=== PATIENT | female | born 1955 | race Caucasian/White ===

== ENCOUNTER 2020-03-08 12:54 | Outpatient (REF) | payer OTHER, MEDICARE, SELFPAY ==
[2020-03-08 14:09] LABS: MANUAL DIFF FLAG NO
[2020-03-08 14:18] LABS: Basophils Absolute Auto 0.1 X10*3/uL (0.0-0.2); Basophils Percent Auto 0.8 % (0-2); Eosinophils Absolute Auto 0.1 X10*3/uL (0.0-0.4); Eosinophils Percent Auto 1.3 % (0-4); Hematocrit 39.9 % (37-47); Hemoglobin 13.4 g/dl (12.0-16.0); Imm Gran Abs Auto 0.02 X10*3/uL (0.00-0.03); Imm Gran Pct Auto 0.3 % (0.0-0.4); Lymphocytes Absolute Auto 1.5 X10*3/uL (1.2-4.9); Lymphocytes Percent Auto 23.8 % (20-40); Mean Corpuscular HGB Conc 33.6 g/dl (31.0-35.0); Mean Corpuscular Hemoglobin 32.1 pg (27.0-33.0); Mean Corpuscular Volume 95.5 fL (80-98); Mean Platelet Volume 10.2 fL (9.4-12.3); Monocytes Absolute Auto 0.6 X10*3/uL (0.1-1.2); Neutrophils Absolute Auto 3.9 X10*3/uL (2.0-8.3); Neutrophils Percent Auto 63.8 % (45-73); Platelet Count 252 X10*3/uL (160-400); Red Blood Count 4.18 X10*6/uL (4.20-5.50); Red Cell Distribution Width 13.3 % (11.0-16.0); White Blood Count 6.1 X10*3/uL (4.8-10.8)
[2020-03-08 14:46] LABS: Anion Gap 15 (12-20); Blood Urea Nitrogen 7 mg/dL (9-16); Calcium 9.3 mg/dL (8.4-10.2); Carbon Dioxide 24 mmol/L (22-29); Chloride 97 mmol/L (96-108); Estimated Glomerular Filt Rate > 60; Glucose Random 91 mg/dL (60-115); Potassium 4.9 mmol/l (3.3-5.1); Sodium 131 mmol/L (135-145)
[2020-03-09 08:06] LABS: LDL Cholesterol Direct 88 mg/dL (<100)
== END 2020-03-08 12:55 | disposition home or self-care (01) ==
LOC: HO.HMGCLDS 12:54
PROVIDERS: PCP Internal Medicine; Visit Provider Internal Medicine
DX: M81.0 Age-related osteoporosis without current pathological fracture (principal); E78.9 Disorder of lipoprotein metabolism, unspecified; I10 Essential (primary) hypertension
CPT/HCPCS: 36415; 80048; 83721; 85025

== ENCOUNTER → 2020-07-21 08:19 | Outpatient (BNVA) | payer MEDICARE, OTHER, SELFPAY | PROVIDERS: PCP Internal Medicine; Visit Provider Internal Medicine Endocrinology, Diabetes & Metabolism | DX: M81.0 Age-related osteoporosis without current pathological fracture (principal); E87.1 Hypo-osmolality and hyponatremia | CPT/HCPCS: 99202 ==

== ENCOUNTER 2020-07-27 08:08 | Outpatient (REF) | payer MEDICARE, OTHER, SELFPAY ==
[2020-07-27 10:11] LABS: Free T4 (Free Thyroxine) 1.13 ng/dL (0.71-1.85); Thyroid Stimulating Hormone 1.46 uIU/mL (0.32-4.0); Vitamin D 25-OH Total 29.9 ng/mL (>30)
[2020-07-27 10:44] LABS: Osmolality, Serum 276 mosm/kg (281-305)
[2020-07-27 10:51] LABS: Osmolality Urine 209 mosm/kg (373-1093)
[2020-07-28 11:26] LABS: Calcium (PTHI) 9.2 mg/dL (8.6-10.4); PTHI 70 pg/mL (14-64)
[2020-07-28 21:27] LABS: Adrenocorticotropic Hormone 21 pg/mL (6-50)
[2020-07-29 18:21] LABS: Histamine Plasma <1.5 ng/mL (< OR = 1.8)
[2020-07-29 22:23] LABS: Prot Elec - Albumin 4.3 g/dL (3.8-4.8); Prot Elec - Alpha1 0.3 g/dL (0.2-0.3); Prot Elec - Alpha2 0.8 g/dL (0.5-0.9); Prot Elec - Beta 1 0.4 g/dL (0.4-0.6); Prot Elec - Beta 2 0.4 g/dL (0.2-0.5); Prot Elec - Gamma 1.1 g/dL (0.8-1.7); Prot Elec - Total Protein 7.3 g/dL (6.1-8.1)
[2020-08-03 06:47] LABS: N-Telopeptide 29 (see note); NTXCreaRU 38 mg/dL (20-275)
== END 2020-07-27 08:09 | disposition home or self-care (01) ==
LOC: HO.HMGCLDS 08:08
PROVIDERS: PCP Internal Medicine; Visit Provider Internal Medicine Endocrinology, Diabetes & Metabolism
DX: M81.0 Age-related osteoporosis without current pathological fracture (principal); E87.1 Hypo-osmolality and hyponatremia; Z00.00 Encounter for general adult medical examination without abnormal findings
CPT/HCPCS: 36415; 82024; 82306; 82523; 82533; 83088; 83930; 83935; 83970; 84155; 84165; 84439; 84443

== ENCOUNTER 2020-07-28 12:25 | Outpatient (REF) | payer MEDICARE, OTHER, SELFPAY ==
[2020-07-28 15:25] LABS: Creatinine, mg/dL 19.72
[2020-07-29 06:50] LABS: Creatinine, 24Hr Urine 0.6 G/Day (1.0-2.0); Total Volume 24 Hour Urine 2800 mL
[2020-07-29 17:57] LABS: Calcium, 24 Hr Urine 25 mg/24 h; Calcium/Creatinine Ratio 41 mg/g creat (30-275); Creatinine 24Hr Urine 0.62 g/24 h (0.50-2.15)
[2020-08-01 12:51] LABS: Creatinine, 24Hr Urine 0.64 g/24 h (0.50-2.15); PEU-PROT/CRE Ratio mg/mg NOTE (< OR = 0.114); PEU24-Albumin Urine 0 %; PEU24-Alpha 1 Globulin 0 %; PEU24-Alpha 2 Globulin 0 %; PEU24-Beta Globulin 0 %; PEU24-Gamma Globulin 0 %; Total Protein 24Hr Urine NOTE mg/24 h (<150); Total Protein/Creat Ratio 24h NOTE mg/g creat (< OR = 114)
== END 2020-07-28 12:26 | disposition home or self-care (01) ==
LOC: HO.HMGCLNP 12:25
PROVIDERS: Visit Provider Internal Medicine Endocrinology, Diabetes & Metabolism
DX: M81.0 Age-related osteoporosis without current pathological fracture (principal)
CPT/HCPCS: 82340; 82570; 84156; 84166

== ENCOUNTER 2020-08-25 10:26 | Outpatient (REF) | payer MEDICARE, OTHER, SELFPAY ==
[2020-08-25 12:32] LABS: Alanine Aminotransferase 13 U/L (0-31); Albumin Level 4.2 g/dL (3.5-5.0); Alkaline Phosphatase 62 U/L (39-117); Anion Gap 13 (12-20); Aspartate Amino Transferase 19 U/L (5-31); Bilirubin Total 0.6 mg/dL (0.0-1.0); Blood Urea Nitrogen 5 mg/dL (9-16); Calcium 9.2 mg/dL (8.4-10.2); Carbon Dioxide 23 mmol/L (22-29); Chloride 101 mmol/L (96-108); Cholesterol 196 mg/dL; Estimated Glomerular Filt Rate > 60; Glucose Fasting 94 mg/dL (60-99); HDL Cholesterol 83 mg/dL; LDL Cholesterol Calculated 103 mg/dl; Sodium 133 mmol/L (135-145); Total Protein 7.1 g/dL (6.5-8.0); Triglycerides 50 mg/dL
[2020-09-02 13:37] LABS: Vitamin D 25-OH, D2 <4 ng/mL; Vitamin D 25-OH, D3 32 ng/mL; Vitamin D 25-OH, Total 32 ng/mL (30-100)
== END 2020-08-25 10:27 | disposition home or self-care (01) ==
LOC: HO.HMGCLDS 10:26
PROVIDERS: PCP Internal Medicine; Visit Provider Internal Medicine
DX: E78.9 Disorder of lipoprotein metabolism, unspecified (principal); I10 Essential (primary) hypertension; K21.9 Gastro-esophageal reflux disease without esophagitis; M81.0 Age-related osteoporosis without current pathological fracture
CPT/HCPCS: 36415; 80053; 80061; 82306

== ENCOUNTER → 2020-09-27 13:19 | Outpatient (BNVA) | payer MEDICARE, OTHER, SELFPAY | PROVIDERS: PCP Internal Medicine; Visit Provider Internal Medicine Endocrinology, Diabetes & Metabolism | DX: M81.0 Age-related osteoporosis without current pathological fracture (principal); E87.1 Hypo-osmolality and hyponatremia; E21.3 Hyperparathyroidism, unspecified | CPT/HCPCS: 99212 ==

== ENCOUNTER 2020-09-28 09:15 | Outpatient (REF) | payer MEDICARE, OTHER, SELFPAY ==
[2020-09-28 10:27] LABS: Alanine Aminotransferase 14 U/L (0-31); Albumin Level 4.2 g/dL (3.5-5.0); Alkaline Phosphatase 51 U/L (39-117); Anion Gap 12 (12-20); Aspartate Amino Transferase 21 U/L (5-31); Bilirubin Total 0.6 mg/dL (0.0-1.0); Blood Urea Nitrogen 6 mg/dL (9-16); Calcium 9.5 mg/dL (8.4-10.2); Carbon Dioxide 25 mmol/L (22-29); Chloride 97 mmol/L (96-108); Estimated Glomerular Filt Rate > 60; Glucose Fasting 92 mg/dL (60-99); Potassium 3.9 mmol/L (3.3-5.1); Sodium 130 mmol/L (135-145); Total Protein 7.1 g/dL (6.5-8.0)
[2020-09-28 10:49] LABS: Vitamin D 25-OH Total 49.7 ng/mL (>30)
[2020-09-30 15:57] LABS: Calcium (PTHI) 9.6 mg/dL (8.6-10.4); PTHI 52 pg/mL (14-64)
== END 2020-09-28 09:16 | disposition home or self-care (01) ==
LOC: HO.LAB 09:15
PROVIDERS: PCP Internal Medicine; Visit Provider Internal Medicine Endocrinology, Diabetes & Metabolism
DX: M81.0 Age-related osteoporosis without current pathological fracture (principal)
CPT/HCPCS: 36415; 80053; 82306; 83970

== ENCOUNTER 2020-09-30 12:51 | Outpatient (REF) | payer MEDICARE, OTHER, SELFPAY ==
[2020-09-30 15:26] LABS: Creatinine, mg/dL 23.37
[2020-09-30 19:43] LABS: Creatinine, 24Hr Urine 0.7 G/Day (1.0-2.0); Total Volume 24 Hour Urine 3000 mL
[2020-10-01 18:12] LABS: Calcium, 24 Hr Urine 45 mg/24 h; Calcium/Creatinine Ratio 60 mg/g creat (30-275); Creatinine 24Hr Urine 0.75 g/24 h (0.50-2.15)
[2020-10-05 16:22] LABS: N-Telopeptide 16 (see note); NTXCreaRU 23 mg/dL (20-275)
== END 2020-09-30 12:52 | disposition home or self-care (01) ==
LOC: HO.HMGCLNP 12:51
PROVIDERS: Visit Provider Internal Medicine Endocrinology, Diabetes & Metabolism
DX: M81.0 Age-related osteoporosis without current pathological fracture (principal)
CPT/HCPCS: 82340; 82523; 82570

== ENCOUNTER → 2021-01-31 10:49 | Outpatient (BNVA) | payer MEDICARE, OTHER, SELFPAY | PROVIDERS: PCP Internal Medicine; Visit Provider Family Medicine Adult Medicine | DX: Z98.890 Other specified postprocedural states (principal) | CPT/HCPCS: 99202 ==

== ENCOUNTER 2021-03-01 10:21 | Outpatient (REF) | payer MEDICARE, OTHER, SELFPAY ==
[2021-03-01 12:02] LABS: Alanine Aminotransferase 16 U/L (0-31); Albumin Level 4.3 g/dL (3.5-5.0); Alkaline Phosphatase 44 U/L (39-117); Anion Gap 13 (12-20); Aspartate Amino Transferase 20 U/L (5-31); Bilirubin Total 0.5 mg/dL (0.0-1.0); Blood Urea Nitrogen 9 mg/dL (9-16); Calcium 9.2 mg/dL (8.4-10.2); Carbon Dioxide 23 mmol/L (22-29); Chloride 98 mmol/L (96-108); Estimated Glomerular Filt Rate > 60; Glucose Random 95 mg/dL (60-115); Potassium 4.4 mmol/L (3.3-5.1); Sodium 130 mmol/L (135-145); Total Protein 7.2 g/dL (6.5-8.0)
== END 2021-03-01 10:22 | disposition home or self-care (01) ==
LOC: HO.HMGCLDS 10:21
PROVIDERS: PCP Internal Medicine; Visit Provider Internal Medicine
DX: M81.0 Age-related osteoporosis without current pathological fracture (principal); K21.9 Gastro-esophageal reflux disease without esophagitis; M54.9 Dorsalgia, unspecified; I10 Essential (primary) hypertension; G89.29 Other chronic pain; E78.9 Disorder of lipoprotein metabolism, unspecified; E87.1 Hypo-osmolality and hyponatremia
CPT/HCPCS: 36415; 80053

== ENCOUNTER → 2021-04-07 14:15 | Outpatient (BNVA) | payer MEDICARE, OTHER, SELFPAY | PROVIDERS: PCP Internal Medicine; Visit Provider Internal Medicine | DX: M81.0 Age-related osteoporosis without current pathological fracture (principal); E55.9 Vitamin D deficiency, unspecified; R79.89 Other specified abnormal findings of blood chemistry | CPT/HCPCS: 99212 ==

== ENCOUNTER 2021-04-11 07:08 | Outpatient (REF) | payer MEDICARE, OTHER, SELFPAY ==
[2021-04-11 09:07] LABS: Cortisol Random 1.5 ug/dL
[2021-04-12 21:27] LABS: Adrenocorticotropic Hormone <5 pg/mL (6-50)
[2021-04-19 13:35] LABS: Dexamethasone 523 ng/dL
== END 2021-04-11 07:09 | disposition home or self-care (01) ==
LOC: HO.HMGCLDS 07:08
PROVIDERS: PCP Internal Medicine; Visit Provider Internal Medicine
DX: M81.0 Age-related osteoporosis without current pathological fracture (principal); Z79.899 Other long term (current) drug therapy
CPT/HCPCS: 36415; 80299; 82024; 82533

== ENCOUNTER 2021-04-27 13:12 | Outpatient (REF) | payer MEDICARE, OTHER, SELFPAY ==
--- NOTE | ~2021-04-27 | MM_ITS ---
EXAMINATION: BONE DENSITOMETRY CLINICAL INDICATION: Osteoporosis. COMPARISON: Previous BD dated 03/20/2016 and baseline BD dated 03/22/2006. TECHNIQUE: Using a iTMan DXA System (software version: 13.1) manufactured by [employer], dual-energy x-ray absorptiometry was performed of the lumbar spine, left hip, and left forearm radius 33%. The images are of good technical quality. Summary results are attached. FINDINGS: AP SPINE L1-L3 (excluding L4): The data of L1-L4 has been changed to exclude the L4 vertebral body, because degenerative changes at this level may cause overestimation of lumbar spine density. Current: BMD 0.880 g/cm2, Z-score -1.2, T-score -2.4, osteopenia, 4.5% decrease from previous, 10.5% decrease from baseline (<5% change is not significant). Prior: BMD 0.921 g/cm2. Baseline: BMD 0.983 g/cm2. LEFT FEMUR, NECK: Current: BMD 0.643 g/cm2, Z-score -1.5, T-score -2.8, osteoporosis. Prior: BMD 0.621 g/cm2. Baseline: BMD 0.700 g/cm2. LEFT FEMUR, TOTAL: Current: BMD 0.707 g/cm2, Z-score -1.3, T-score -2.4, osteopenia, 1.4% increase from previous, 9.7% decrease from baseline (<5% change is not significant). Prior: BMD 0.697 g/cm2. Baseline: BMD 0.783 g/cm2. LEFT FOREARM RADIUS 33%: BMD 0.597 g/cm2, Z-score -1.6, T-score -3.2, osteoporosis. Prior: Not previously measured. IDENTIFIED RISK FACTORS: Menopause, height loss, history of fracture (adult), osteoporosis. HISTORY OF FRACTURE: T11, trauma related. MEDICATIONS: Calcium or multivitamin. Vitamin D, bisphosphonate. MM/XR DEXA appendicular skeleton IMPRESSION: 1. DIAGNOSIS: Osteoporosis based on the lowest T-score value of -3.2 in the forearm radius 33% applying World Health Organization criteria. 2. 10 10-YEAR FRACTURE RISK PREDICTION, FRAX: According to the guidelines, FRAX calculation should only be performed on patients in the osteopenia bone density category. 3. Treatment Recommendations: NOF guidelines recommend consideration for treatment in postmenopausal women and men age 50 and older presenting with the following: -A hip or vertebral (clinical or morphometric) fracture. -T-score less than or equal to -2.5 at the femoral neck or spine after appropriate evaluation to exclude secondary causes. -Low bone mass at the hip or spine and a 10-year fracture probability by FRAX of greater than or equal to 3% for hip fracture or greater than or equal to 20% for major osteoporotic fracture based on the [place] adapted WHO algorithm. 4. Other Recommendations: All treatment decisions require clinical judgment and consideration of individual patient factors, including patient preferences, comorbidities, previous drug use, risk factors not captured in the FRAX model (e.g. frailty, falls, vitamin D deficiency, increased bone turnover, interval significant decline in bone density) and possible under or overestimation of fracture risk by FRAX. Additional medical evaluation for secondary cause of low bone mineral density may be appropriate. FUTURE SCAN RECOMMENDATION: People with diagnosed cases of osteoporosis or at high risk for fracture should have regular bone mineral density tests. For patients eligible for Medicare, routine testing is allowed once every 2 years. The testing frequency can be increased to one year for patients who have rapidly progressing disease, those who are receiving or discontinuing medical therapy to restore bone mass, or have additional risk factors.
== END 2021-04-27 13:13 | disposition home or self-care (01) ==
LOC: HO.MAMMO 13:12
PROVIDERS: Visit Provider Internal Medicine
DX: M81.0 Age-related osteoporosis without current pathological fracture (principal); S22.089D Unspecified fracture of T11-T12 vertebra, subsequent encounter for fracture with routine healing; X58.XXXD Exposure to other specified factors, subsequent encounter; Z78.0 Asymptomatic menopausal state
CPT/HCPCS: 77081

== ENCOUNTER 2021-05-10 10:40 | Outpatient (REF) | payer MEDICARE, OTHER, SELFPAY ==
[2021-05-10 14:34] LABS: Alanine Aminotransferase 13 U/L (0-31); Albumin Level 4.1 g/dL (3.5-5.0); Alkaline Phosphatase 43 U/L (39-117); Anion Gap 13 (12-20); Aspartate Amino Transferase 22 U/L (5-31); Bilirubin Total 0.7 mg/dL (0.0-1.0); Blood Urea Nitrogen 9 mg/dL (9-16); Calcium 9.7 mg/dL (8.4-10.2); Carbon Dioxide 25 mmol/L (22-29); Chloride 99 mmol/L (96-108); Estimated Glomerular Filt Rate > 60; Glucose Random 97 mg/dL (60-115); Potassium 4.5 mmol/L (3.3-5.1); Sodium 132 mmol/L (135-145); Total Protein 7.2 g/dL (6.5-8.0)
== END 2021-05-10 10:41 | disposition home or self-care (01) ==
LOC: HO.HMGCLDS 10:40
PROVIDERS: PCP Internal Medicine; Visit Provider Internal Medicine
DX: I10 Essential (primary) hypertension (principal); E78.9 Disorder of lipoprotein metabolism, unspecified; E87.1 Hypo-osmolality and hyponatremia; M81.0 Age-related osteoporosis without current pathological fracture; K21.9 Gastro-esophageal reflux disease without esophagitis
CPT/HCPCS: 36415; 80053

== ENCOUNTER → 2021-07-13 14:28 | Outpatient (BNVA) | payer MEDICARE, OTHER, SELFPAY | PROVIDERS: PCP Internal Medicine; Visit Provider Internal Medicine | DX: M81.0 Age-related osteoporosis without current pathological fracture (principal); E55.9 Vitamin D deficiency, unspecified; R79.89 Other specified abnormal findings of blood chemistry | CPT/HCPCS: 99212 ==

== ENCOUNTER 2021-08-22 10:45 | Outpatient (REF) | payer MEDICARE, OTHER, SELFPAY ==
[2021-08-22 12:21] LABS: Free T4 (Free Thyroxine) 1.32 ng/dL (0.71-1.85); Thyroid Stimulating Hormone 1.04 uIU/mL (0.32-4.0); Vitamin D 25-OH Total 56.9 ng/mL (>30)
[2021-08-22 12:23] LABS: Alanine Aminotransferase 12 U/L (0-31); Albumin Level 4.1 g/dL (3.5-5.0); Alkaline Phosphatase 44 U/L (39-117); Anion Gap 12 (12-20); Aspartate Amino Transferase 18 U/L (5-31); Bilirubin Total 0.7 mg/dL (0.0-1.0); Blood Urea Nitrogen 7 mg/dL (9-16); Calcium 9.7 mg/dL (8.4-10.2); Carbon Dioxide 23 mmol/L (22-29); Chloride 99 mmol/L (96-108); Estimated Glomerular Filt Rate > 60; Glucose Random 94 mg/dL (60-115); Phosphorus 3.5 mg/dL (2.7-4.5); Potassium 3.9 mmol/L (3.3-5.1); Sodium 130 mmol/L (135-145); Total Protein 7.1 g/dL (6.5-8.0)
[2021-08-23 14:11] LABS: Calcium (PTHI) 9.5 mg/dL (8.6-10.4); PTHI 32 pg/mL (16-77)
[2021-08-26 17:12] LABS: Alkaline Phosphatase Bone 6.7 mcg/L (5.6-29.0)
[2021-08-28 22:07] LABS: Prot Elec - Albumin 3.7 g/dL (3.8-4.8); Prot Elec - Alpha1 0.4 g/dL (0.2-0.3); Prot Elec - Alpha2 0.9 g/dL (0.5-0.9); Prot Elec - Beta 1 0.4 g/dL (0.4-0.6); Prot Elec - Beta 2 0.4 g/dL (0.2-0.5); Prot Elec - Gamma 1.1 g/dL (0.8-1.7); Prot Elec - Total Protein 6.8 g/dL (6.1-8.1)
== END 2021-08-22 10:46 | disposition home or self-care (01) ==
LOC: HO.LAB 10:45
PROVIDERS: PCP Internal Medicine; Visit Provider Internal Medicine
DX: M81.0 Age-related osteoporosis without current pathological fracture (principal)
CPT/HCPCS: 36415; 80053; 82306; 83970; 84075; 84100; 84165; 84439; 84443

== ENCOUNTER 2021-08-24 11:46 | Outpatient (REF) | payer MEDICARE, OTHER, SELFPAY ==
[2021-08-24 14:47] LABS: Creatinine, mg/dL 26.31
[2021-08-24 19:31] LABS: Creatinine, 24Hr Urine 0.9 G/Day (1.0-2.0); Total Volume 24 Hour Urine 3500 mL
[2021-08-26 17:31] LABS: Calcium, 24 Hr Urine 77 mg/24 h; Calcium/Creatinine Ratio 79 mg/g creat (30-275); Creatinine 24Hr Urine 0.98 g/24 h (0.50-2.15)
[2021-08-30 06:12] LABS: N-Telopeptide 12 (see note); NTXCreaRU 34 mg/dL (20-275)
== END 2021-08-24 11:47 | disposition home or self-care (01) ==
LOC: HO.HMGCLNP 11:46
PROVIDERS: Visit Provider Internal Medicine
DX: M81.0 Age-related osteoporosis without current pathological fracture (principal)
CPT/HCPCS: 82340; 82523; 82570

== ENCOUNTER 2021-08-24 11:58 | Outpatient (REF) | payer MEDICARE, OTHER, SELFPAY | END 2021-08-24 11:59 | disposition home or self-care (01) | LOC: HO.HMGCLNP 11:58 | PROVIDERS: Visit Provider Internal Medicine | DX: Z13.89 Encounter for screening for other disorder (principal) ==

== ENCOUNTER → 2021-09-07 10:49 | Outpatient (BNVA) | payer MEDICARE, OTHER, SELFPAY | PROVIDERS: PCP Internal Medicine; Visit Provider Internal Medicine | DX: M81.0 Age-related osteoporosis without current pathological fracture (principal); E55.9 Vitamin D deficiency, unspecified | CPT/HCPCS: Q3014 ==

== ENCOUNTER 2022-01-31 11:00 | Outpatient (REF) | payer MEDICARE, OTHER, SELFPAY ==
[2022-01-31 13:00] LABS: Alanine Aminotransferase 14 U/L (0-31); Albumin Level 4.3 g/dL (3.5-5.0); Alkaline Phosphatase 42 U/L (39-117); Anion Gap 17 (12-20); Aspartate Amino Transferase 20 U/L (5-31); Bilirubin Total 0.8 mg/dL (0.0-1.0); Blood Urea Nitrogen 7 mg/dL (9-16); Calcium 9.6 mg/dL (8.4-10.2); Carbon Dioxide 22 mmol/L (22-29); Chloride 96 mmol/L (96-108); Estimated Glomerular Filt Rate > 60; Glucose Random 99 mg/dL (60-115); Phosphorus 3.5 mg/dL (2.7-4.5); Sodium 131 mmol/L (135-145); Total Protein 7.2 g/dL (6.5-8.0)
[2022-02-01 13:21] LABS: Calcium (PTHI) 9.5 mg/dL (8.6-10.4); PTHI 49 pg/mL (16-77)
== END 2022-01-31 11:01 | disposition home or self-care (01) ==
LOC: HO.LAB 11:00
PROVIDERS: PCP Internal Medicine; Visit Provider Internal Medicine
DX: E55.9 Vitamin D deficiency, unspecified (principal); M81.0 Age-related osteoporosis without current pathological fracture
CPT/HCPCS: 36415; 80053; 82306; 83970; 84100

== ENCOUNTER → 2022-03-08 14:13 | Outpatient (BNVA) | payer MEDICARE, OTHER, SELFPAY | PROVIDERS: PCP Internal Medicine; Visit Provider Internal Medicine | DX: M81.0 Age-related osteoporosis without current pathological fracture (principal); E55.9 Vitamin D deficiency, unspecified | CPT/HCPCS: 99212 ==

== ENCOUNTER 2022-07-05 14:25 | Outpatient (REF) | payer MEDICARE, OTHER, SELFPAY ==
--- NOTE | ~2022-07-05 | MM_ITS ---
EXAMINATION: MM SCREENING DIGITAL BREAST TOMOSYNTHESIS, BILATERAL CLINICAL INFORMATION: Screening. Asymptomatic. The lifetime risk of breast cancer based on the Tyrer-Cuzick Model is 15.0%. COMPARISON: Mammography: July 14, 2018 and studies dating back to June 19, 2013 TECHNIQUE: Digital breast tomosynthesis is performed in both the craniocaudal and mediolateral oblique views along with computer-aided detection (CAD). Synthesized 2D images are generated from the tomosynthesis. FINDINGS: The breasts are heterogeneously dense, which may obscure small masses (ACR BI-RADS breast composition Category c). There are no significant masses, abnormal calcifications, or other abnormalities. MM/MM tomosynthesis screening BI IMPRESSION: No significant changes from prior exam. ASSESSMENT: BI-RADS 1: Negative RECOMMENDATION: Routine annual mammography screening. This patient's information was entered into a reminder system with a target due date for their next mammogram.
== END 2022-07-05 14:26 | disposition home or self-care (01) ==
LOC: HO.MAMMO 14:25
PROVIDERS: PCP Internal Medicine; Visit Provider Internal Medicine
DX: Z12.31 Encounter for screening mammogram for malignant neoplasm of breast (principal)
CPT/HCPCS: 77063; 77067

== ENCOUNTER 2022-07-25 10:37 | Outpatient (REF) | payer MEDICARE, OTHER, SELFPAY ==
[2022-07-25 10:51] LABS: MANUAL DIFF FLAG NO
[2022-07-25 11:39] LABS: Basophils Absolute Auto 0.1 X10*3/uL (0.0-0.2); Basophils Percent Auto 0.8 % (0-2); Eosinophils Absolute Auto 0.1 X10*3/uL (0.0-0.4); Eosinophils Percent Auto 2.2 % (0-4); Hematocrit 39.5 % (37.0-47.0); Hemoglobin 13.6 g/dl (12.0-16.0); Imm Gran Abs Auto 0.01 X10*3/uL (0.00-0.03); Imm Gran Pct Auto 0.2 % (0.0-0.4); Lymphocytes Absolute Auto 2.4 X10*3/uL (1.2-4.9); Lymphocytes Percent Auto 37.9 % (20-40); Mean Corpuscular HGB Conc 34.4 g/dl (31.0-35.0); Mean Corpuscular Hemoglobin 32.2 pg (27.0-33.0); Mean Corpuscular Volume 93.4 fL (80.0-98.0); Mean Platelet Volume 9.7 fL (9.4-12.3); Monocytes Absolute Auto 0.5 X10*3/uL (0.1-1.2); Monocytes Percent Auto 8.1 % (2-11); Neutrophils Absolute Auto 3.3 x10*3/uL (2.0-8.3); Neutrophils Percent Auto 50.8 % (45-73); Platelet Count 263 X10*3/uL (160-400); Red Blood Count 4.23 X10*6/uL (4.20-5.50); Red Cell Distribution Width 13.7 % (11.0-16.0); White Blood Count 6.4 X10*3/uL (4.8-10.8)
[2022-07-25 12:24] LABS: Alanine Aminotransferase 12 U/L (0-31); Albumin Level 4.2 g/dL (3.5-5.0); Alkaline Phosphatase 49 U/L (39-117); Anion Gap 13 (12-20); Aspartate Amino Transferase 19 U/L (5-31); Blood Urea Nitrogen 7 mg/dL (9-16); Calcium 9.7 mg/dL (8.4-10.2); Carbon Dioxide 25 mmol/L (22-29); Chloride 98 mmol/L (96-108); Cholesterol 207 mg/dL; Estimated Glomerular Filt Rate > 60; Glucose Fasting 97 mg/dL (60-99); HDL Cholesterol 86 mg/dL; LDL Cholesterol Calculated 112 mg/dl; Potassium 4.3 mmol/L (3.3-5.1); Sodium 132 mmol/L (135-145); Triglycerides 49 mg/dL
[2022-07-25 12:35] LABS: TSH reflex Free T4 1.34 uIU/mL (0.32-4.0); Vitamin B12 315 pg/mL (200-900)
[2022-08-01 15:09] LABS: Vitamin D 25-OH, D2 <4 ng/mL; Vitamin D 25-OH, D3 37 ng/mL; Vitamin D 25-OH, Total 37 ng/mL (30-100)
== END 2022-07-25 10:38 | disposition home or self-care (01) ==
LOC: HO.LAB 10:37
PROVIDERS: Absent Provider Internal Medicine; PCP Internal Medicine; Visit Provider Internal Medicine
DX: Z00.01 Encounter for general adult medical examination with abnormal findings (principal); E78.9 Disorder of lipoprotein metabolism, unspecified; I10 Essential (primary) hypertension; K21.9 Gastro-esophageal reflux disease without esophagitis; M81.0 Age-related osteoporosis without current pathological fracture; E55.9 Vitamin D deficiency, unspecified
CPT/HCPCS: 36415; 80053; 80061; 82306; 82607; 84443; 85025

== ENCOUNTER → 2022-08-23 12:56 | Outpatient (BNVA) | payer MEDICARE, OTHER, SELFPAY | PROVIDERS: PCP Internal Medicine; Visit Provider Internal Medicine | DX: M81.0 Age-related osteoporosis without current pathological fracture (principal); E55.9 Vitamin D deficiency, unspecified | CPT/HCPCS: 99212 ==

== ENCOUNTER 2023-02-06 11:04 | Outpatient (REF) | payer MEDICARE, OTHER, SELFPAY ==
[2023-02-06 12:43] LABS: Alanine Aminotransferase 13 U/L (0-31); Albumin Level 4.1 g/dL (3.5-5.0); Alkaline Phosphatase 42 U/L (39-117); Anion Gap 14 (12-20); Aspartate Amino Transferase 20 U/L (5-31); Bilirubin Total 0.7 mg/dL (0.0-1.0); Blood Urea Nitrogen 6 mg/dL (9-16); Calcium 9.6 mg/dL (8.4-10.2); Carbon Dioxide 24 mmol/L (22-29); Chloride 97 mmol/L (96-108); Estimated Glomerular Filt Rate > 60; Glucose Random 100 mg/dL (60-115); Potassium 3.6 mmol/L (3.3-5.1); Sodium 131 mmol/L (135-145); Total Protein 7.1 g/dL (6.5-8.0)
[2023-02-08 18:32] LABS: Calcium (PTHI) 9.4 mg/dL (8.6-10.4); PTHI 23 pg/mL (16-77)
[2023-02-11 14:18] LABS: N-Telopeptide 8 (see note); NTXCreaRU 37 mg/dL (20-275)
== END 2023-02-06 11:05 | disposition home or self-care (01) ==
LOC: HO.LAB 11:04
PROVIDERS: Visit Provider Internal Medicine
DX: M81.0 Age-related osteoporosis without current pathological fracture (principal); E55.9 Vitamin D deficiency, unspecified
CPT/HCPCS: 36415; 80053; 82306; 82523; 83970; 84100

== ENCOUNTER 2023-03-19 15:27 | Outpatient (AMB) | payer MEDICARE, OTHER, SELFPAY ==
--- NOTE | 2023-03-19 15:29 | MHC.OFFVIS ---
Intake Vital Signs 03/19/23 15:31 Height 5 ft 5.75 in Weight 160 lb 4.417 oz BMI 26.1 BP 144/66 H Blood Pressure Location Rt brachial Position Sitting Pulse 111 H Pulse Source Pulse Oximeter Intake Visit Reasons: F/U Osteoporosis-LVM Intake Note: Patient present for Osteoporosis follow up visit. Ice Cutter Required: No Accompanied by: Self / Same As Patient Allergies No Known Allergies [No Known Allergies*] Allergy (Verified 03/19/23 15:33) HPI HPI Comments History of Present Illness Details 67 YO Female who is seen in F/U for Osteoporosis. She was previously followed by Dr. Villagomez. The patient last saw Dr. Sebastian on 08/23/2022 First diagnosed in 2009. Received treatment in the past with Actonel for just a few months. This caused worsening GERD so it was stopped. She was then switched to Fosamax as of September 2020, and has remained on this with 3 separate 3 month pauses due to dental work. She has tolerated this well. She is currently off the Fosamax due to a recent dental extraction. No history of pathologic fracture or ONJ. Has 0 servings of dietary calcium per day. Takes Calcium supplement 1000 mg daily in divided doses. Takes 2000 IU of Vitamin D daily. Does use a daily PPI. Denies every using anticoagulant, antiepileptic or glucocorticoid medication. Fracture history: Had a compression fracture of the T11 vertebrate, with kyphoplasty 05/2019. Height loss: Reports, but is unable to quantify. 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 Menses were always regular. . Menopause was margarito 40's. She did not use HRT after. Denies history of Kidney stones: Has a family history of Osteoporosis in her Sister. UTD on dental cleanings and sees dentist every 6 months. Does have a planned dental extraction in April. DXA: 04/27/2021 FINDINGS: AP SPINE L1-L3 (excluding L4): The data of L1-L4 has been changed to exclude the L4 vertebral body, because degenerative changes at this level may cause overestimation of lumbar spine density. Current: BMD 0.880 g/cm2, Z-score -1.2, T-score -2.4, osteopenia, 4.5% decrease from previous, 10.5% decrease from baseline (<5% change is not significant). Prior: BMD 0.921 g/cm2. Baseline: BMD 0.983 g/cm2. LEFT FEMUR, NECK: Current: BMD 0.643 g/cm2, Z-score -1.5, T-score -2.8, osteoporosis. Prior: BMD 0.621 g/cm2. Baseline: BMD 0.700 g/cm2. LEFT FEMUR, TOTAL: Current: BMD 0.707 g/cm2, Z-score -1.3, T-score -2.4, osteopenia, 1.4% increase from previous, 9.7% decrease from baseline (<5% change is not significant). Prior: BMD 0.697 g/cm2. Baseline: BMD 0.783 g/cm2. LEFT FOREARM RADIUS 33%: BMD 0.597 g/cm2, Z-score -1.6, T-score -3.2, osteoporosis. Prior:? Not previously measured. Labs: Laboratory Tests 01/31/22 01/31/22 11:10 11:10 Creatinine 0.72 Estimated GFR > 60 25-OH Vitamin D To giana 45.0 PTH Intact 49 Calcium (PTH Intac t) 9.5 been on alendronate since 1 yr [facility] Medical History Age related osteoporosis Elevated cortisol level Hyperparathyroidism Hypertension, essential Hyponatremia Lipid disorder Osteoporosis Vitamin D deficiency Surgical History Hx of oral surgery H/O kyphoplasty H/O left breast biopsy History of colonoscopy History of right cataract surgery Family History Father Lung cancer Mother CAD (coronary artery disease) Breast cancer Diabetes mellitus Partial blindness Sister Breast cancer Maternal Grandfather Unknown family medical history Maternal Grandmother Unknown family medical history Paternal Grandfather Unknown family medical history Paternal Grandmother Unknown family medical history Maternal Aunt Breast cancer Social History Housing: House Alcohol intake: current Alcohol intake frequency: a few times a week Patient Tobacco Use Status: Former Tobacco user Quit Date: 2018 Tobacco use type: Cigarette Cigarette Packs Per Day: 1.5 e-Cigarette/Vaping Use: Currently Using (vape) Current occupational status: retired Cognitive needs: No Hearing needs: No Vision needs: No Physical Exam Vital Signs: BMI result Body Mass Index 26.1 Assessment & Plan Assessment & Plan (1) Age related osteoporosis: Code(s): M81.0 - Age-related osteoporosis without current pathological fracture Plan: This 67-year-old white female with history of osteoporosis with negative secondary workup. There is a history of compression fracture kyphoplasty. She is currently on alendronate 70 mg q.week. Plan is to continue the current management. Will recheck DEXA bone density in 04/2023. Will also check Urine NTX. Depending upon the above may continue the alendronate or switch to anabolic therapy if warranted (2) Hyponatremia: Code(s): E87.1 - Hypo-osmolality and hyponatremia Plan: Chronic hyponatremia. Will workup for SIADH Will check urine osmolality, plasma osmolality, serum sodium, urine sodium. Further workup based on the above,. Did talk to the patient but getting a 2nd opinion from Dr. López a specialist at [facility] in hyponatremia and osteoporosis Orders: Orders Collagen Crosslinks NTX Today M81.0 - Age-related osteoporosis without current pathological fracture Sodium Today E87.1 - Hypo-osmolality and hyponatremia Sodium Urine Random Today E87.1 - Hypo-osmolality and hyponatremia Osmolality Urine Today E87.1 - Hypo-osmolality and hyponatremia XR DEXA axial skeleton 2 Months M81.0 - Age-related osteoporosis without current pathological fracture Osmolality, Serum Today E87.1 - Hypo-osmolality and hyponatremia Coding Level of Care Code Est Pt Level 3 (45012) Diagnoses Age related osteoporosis M81.0 Hyponatremia E87.1
[2023-03-19 15:31] VITALS: BP 144/66; PULSE 111; BMI 26.1
== END 2023-03-19 16:20 | disposition home or self-care (01) ==
PROVIDERS: PCP Internal Medicine; Visit Provider Internal Medicine Endocrinology, Diabetes & Metabolism
DX: M81.0 Age-related osteoporosis without current pathological fracture (principal); E87.1 Hypo-osmolality and hyponatremia
CPT/HCPCS: 99213

== ENCOUNTER → 2023-03-19 15:27 | Outpatient (BNVA) | payer MEDICARE, OTHER, SELFPAY | PROVIDERS: Visit Provider Internal Medicine Endocrinology, Diabetes & Metabolism | DX: M81.0 Age-related osteoporosis without current pathological fracture (principal); E87.1 Hypo-osmolality and hyponatremia; E55.9 Vitamin D deficiency, unspecified; U07.0 Vaping-related disorder; Z87.891 Personal history of nicotine dependence; Z87.81 Personal history of (healed) traumatic fracture; Z79.899 Other long term (current) drug therapy | CPT/HCPCS: 99212 ==

== ENCOUNTER 2023-04-24 10:48 | Outpatient (REF) | payer MEDICARE, OTHER, SELFPAY ==
[2023-04-24 14:13] LABS: Osmolality Urine 193 mosm/kg (373-1093)
[2023-05-02 08:14] LABS: N-Telopeptide 9 (see note); NTXCreaRU 53 mg/dL (20-275)
== END 2023-04-24 10:49 | disposition home or self-care (01) ==
LOC: HO.LAB 10:48
PROVIDERS: PCP Internal Medicine; Visit Provider Internal Medicine Endocrinology, Diabetes & Metabolism
DX: M81.0 Age-related osteoporosis without current pathological fracture (principal); E87.1 Hypo-osmolality and hyponatremia
CPT/HCPCS: 36415; 82523; 83930; 83935; 84295; 84300

== ENCOUNTER 2023-05-07 14:05 | Outpatient (AMB) | payer MEDICARE, OTHER, SELFPAY ==
[2023-05-07 14:07] VITALS: BP 144/70; PULSE 112; O2SAT 99; BMI 24.4
--- NOTE | 2023-05-07 14:07 | HO.NEPHOV_ITS ---
HPI HPI Comments History of Present Illness Details 68 yr old woman referred for Hyponatremi a in a setting of HTN And osteoporosis Based on EMR, she has chronic asymptomatic hyponatremia Usually pNa is around 131 mmol/L Lowest value was 128 few years ago. SHe has a h/o HTN and currently on Amlodipine and Candesartan Not on any diuretics- especially thiazides She stays on a regular diet h/o Smoking : 1 and 1/2 pack for 40 years. Quit 2- 3 yrs ago. h/o mild COPD. Does not require treatment/inhalers h/o drinking beer - everyday Says she drinks 5- 7 bottles Granda light a week Also drinks 3 + bottles of Pepsi a day , in addition to other fluids- coffee etc She underwent 24 hour urine collection 3 times in 2 years. The volume was 2800, 3000 and 3500 and urine osmolarity was relatively low at 191 PFSH Medical History Elevated cortisol level Vitamin D deficiency Osteoporosis Hyperparathyroidism Hyponatremia Age related osteoporosis Lipid disorder Hypertension, essential Surgical History Hx of oral surgery H/O kyphoplasty H/O left breast biopsy History of colonoscopy History of right cataract surgery Family History Father Lung cancer Mother CAD (coronary artery disease) Breast cancer Diabetes mellitus Partial blindness Sister Breast cancer Maternal Grandfather Unknown family medical history Maternal Grandmother Unknown family medical history Paternal Grandfather Unknown family medical history Paternal Grandmother Unknown family medical history Maternal Aunt Breast cancer Social History Housing: House Alcohol intake: current Alcohol intake frequency: a few times a week Patient Tobacco Use Status: Former Tobacco user Quit Date: 2018 Tobacco use type: Cigarette Cigarette Packs Per Day: 1.5 e-Cigarette/Vaping Use: Currently Using Current occupational status: retired Cognitive needs: No Hearing needs: No Vision needs: No Vital Signs 05/07/23 14:07 Height 5 ft 7.5 in Weight 158 lb BMI 24.4 BP 144/70 H Blood Pressure Location Rt brachial Position Sitting Pulse 112 H Pulse Source Pulse Oximeter Pulse Oximetry (%) 99 Oxygen Delivery Method Room Air Physical Exam Vital Signs: Last Vital Signs Pulse 112 H 05/07/23 14:07 BP 144/70 H 05/07/23 14:07 Pulse Ox 99 05/07/23 14:07 Oxygen Delivery Method Room Air 05/07/23 14:07 BMI result Body Mass Index 24.4 Const General: comfortable Nutritional Appearance: well nourished Orientation/consciousness: patient oriented x3 HEENT Head: No normal to inspection Mouth: moist mucous membranes Neck Neck: Yes supple and Yes no JVD Resp Auscultation: clear to auscultation bilaterally, no rales and rub present Cardio Jugular venous distension: no JVD Palpation: no palpable S3 and no palpable S4 Heart sounds: no rubs GI Palpation (GI): Soft to palpation and nontender Percussion: No Fluid wave present General: Yes no CVA tenderness Back/Spine/Pelvis Back: no CVA tenderness Skin General skin exam: no rashes or lesions noted Neuro General: patient oriented x3 Extrem General: Yes no pedal edema and No clubbing Assessment & Plan Assessment & Plan (1) Chronic hyponatremia: Code(s): E87.1 - Hypo-osmolality and hyponatremia Plan . 68 yr old woman with Chronic Asymptomatic Hyponatremia / Hypotonic hyponatremia She has a dilute urine with polyuria - most likely due to polydipsia/ beer potomania TSH was normal; Cortisol normal Plan: Limit hypotonic fluid intake : Cut down beer to 1 bottle a day. Cut down soda to 1 bottle a day. Total fluid intake should be < 2L per 24 hours for now Recheck serum Na in a week along with urine Osm, Urine Na, serum Osm etc Given the h/o smoking for 40 yrs, I will obtain Chest xray Goal pNa > 133 Answered all her questions Orders: Orders Sodium Urine Random 1 Week E87.1 - Hypo-osmolality and hyponatremia Uric Acid 1 Week E87.1 - Hypo-osmolality and hyponatremia Osmolality Urine 1 Week E87.1 - Hypo-osmolality and hyponatremia UA and rflx microscopic 1 Week E87.1 - Hypo-osmolality and hyponatremia Osmolality, Serum 1 Week E87.1 - Hypo-osmolality and hyponatremia Cortisol Random 1 Week E87.1 - Hypo-osmolality and hyponatremia XR chest 2V 1 Week E87.1 - Hypo-osmolality and hyponatremia Coding Level of Care Code New Pt Level 5 (63661) Diagnoses Chronic hyponatremia E87.1 Results Reviewed Nephrology Results: 2 Hgb 13.6 g/dl (12.0-16.0) 07/25/22 WBC 6.4 X10*3/uL (4.8-10.8) 07/25/22 Plt Count 263 X10*3/uL (160-400) 07/25/22 Sodium 131 mmol/L (135-145) L 04/24/23 Potassium 3.6 mmol/L (3.3-5.1) 02/06/23 Chloride 97 mmol/L (96-108) 02/06/23 Carbon Dioxide 24 mmol/L (22-29) 02/06/23 BUN 6 mg/dL (9-16) L 02/06/23 Creatinine 0.67 mg/dL (0.5-1.4) 02/06/23 Calcium 9.6 mg/dL (8.4-10.2) 02/06/23 Phosphorus 3.0 mg/dL (2.7-4.5) 02/06/23 PTH Intact 23 pg/mL (16-77) 02/06/23 Urine Creatinine 53 mg/dL (20-275) 04/24/23
== END 2023-05-07 14:35 | disposition home or self-care (01) ==
PROVIDERS: PCP Internal Medicine; Visit Provider Internal Medicine Hypertension Specialist
DX: E87.1 Hypo-osmolality and hyponatremia (principal); I10 Essential (primary) hypertension
CPT/HCPCS: 99204

== ENCOUNTER → 2023-05-07 14:05 | Outpatient (BNVA) | payer MEDICARE, OTHER, SELFPAY | PROVIDERS: PCP Internal Medicine; Visit Provider Internal Medicine Hypertension Specialist | DX: E87.1 Hypo-osmolality and hyponatremia (principal); I10 Essential (primary) hypertension; M81.0 Age-related osteoporosis without current pathological fracture | CPT/HCPCS: 99202 ==

== ENCOUNTER 2023-05-13 11:29 | Outpatient (REF) | payer MEDICARE, OTHER, SELFPAY ==
--- NOTE | ~2023-05-13 | XR_ITS ---
EXAMINATION: XR CHEST CLINICAL INFORMATION: Hypoosmolality and hyponatremia COMPARISON: 03/16/2014 TECHNIQUE: 2 views of the chest were obtained. FINDINGS: Heart and mediastinum within normal limits. Aortic calcifications. Hyperinflation with minor basilar atelectasis. No consolidations or effusions. Demineralization. Severe lower dorsal compression deformity with vertebroplasty cement. XR/XR chest 2V IMPRESSION: Minor atelectasis otherwise no acute cardiopulmonary disease. Severe lower dorsal compression deformity with vertebroplasty cement.
[2023-05-13 13:05] LABS: Uric Acid 3.4 mg/dL (2.4-5.7)
[2023-05-13 13:27] LABS: Cortisol Random 13.1 ug/dL
[2023-05-13 13:31] LABS: Osmolality, Serum 274 mosm/kg (281-305)
[2023-05-13 15:36] LABS: Appearance Urine Clear; Color Urine Yellow; Glucose Urine UA Negative (Negative); Leukocyte Esterase Urine Moderate (2+) (Negative); Nitrite Urine Negative (Negative); Specific Gravity - Urine <= 1.005 (1.005-1.025); UMIC TRIGGER UA YES; Urine Blood Negative (Negative); Urine Ketones Negative (Negative); Urine Protein Negative (Neg-Trace)
[2023-05-13 15:41] LABS: Bacteria Urine 1+ (None Seen); Hyaline Casts Urine 0-2 /LPF (0-2); RBC Urine 0-2 /HPF (0-2); WBC Urine 21-50 /HPF (0-5)
[2023-05-13 17:55] LABS: Osmolality Urine 168 mosm/kg (373-1093)
== END 2023-05-13 11:30 | disposition home or self-care (01) ==
LOC: HO.LAB 11:29
PROVIDERS: PCP Internal Medicine; Visit Provider Internal Medicine Hypertension Specialist
DX: E87.1 Hypo-osmolality and hyponatremia (principal)
CPT/HCPCS: 36415; 71046; 81001; 82533; 83930; 83935; 84300; 84550

== ENCOUNTER 2023-05-21 13:29 | Outpatient (AMB) | payer MEDICARE, OTHER, SELFPAY ==
[2023-05-21 13:30] VITALS: BP 134/68; PULSE 111; O2SAT 98; BMI 24.6
--- NOTE | 2023-05-21 13:30 | HO.NEPHOV_ITS ---
HPI HPI Comments History of Present Illness Details 68 yr old woman referred for Hyponatremi a in a setting of HTN And osteoporosis Based on EMR, she has chronic asymptomatic hyponatremia Usually pNa is around 131 mmol/L Lowest value was 128 few years ago. SHe has a h/o HTN and currently on Amlodipine and Candesartan Not on any diuretics- especially thiazides She stays on a regular diet h/o Smoking : 1 and 1/2 pack for 40 years. Quit 2- 3 yrs ago. h/o mild COPD. Does not require treatment/inhalers h/o drinking beer - everyday Says she drinks 5- 7 bottles Granda light a week Also drinks 3 + bottles of Pepsi a day , in addition to other fluids- coffee etc She underwent 24 hour urine collection 3 times in 2 years. The volume was 2800, 3000 and 3500 and urine osmolarity was relatively low at 191 05/21/23 Feels ok Drinks about 2 L fluids including Pepsi and Beer PFSH Medical History Elevated cortisol level Vitamin D deficiency Osteoporosis Hyperparathyroidism Hyponatremia Age related osteoporosis Lipid disorder Hypertension, essential Surgical History Hx of oral surgery H/O kyphoplasty H/O left breast biopsy History of colonoscopy History of right cataract surgery Family History Father Lung cancer Mother CAD (coronary artery disease) Breast cancer Diabetes mellitus Partial blindness Sister Breast cancer Maternal Grandfather Unknown family medical history Maternal Grandmother Unknown family medical history Paternal Grandfather Unknown family medical history Paternal Grandmother Unknown family medical history Maternal Aunt Breast cancer Social History Housing: House Alcohol intake: current Alcohol intake frequency: a few times a week Patient Tobacco Use Status: Former Tobacco user Quit Date: 2018 Tobacco use type: Cigarette Cigarette Packs Per Day: 1.5 e-Cigarette/Vaping Use: Currently Using Current occupational status: retired Cognitive needs: No Hearing needs: No Vision needs: No Vital Signs 05/21/23 13:30 Height 5 ft 7.5 in Weight 159 lb 4 oz BMI 24.6 BP 134/68 Blood Pressure Location Rt brachial Position Sitting Pulse 111 H Pulse Source Pulse Oximeter Pulse Oximetry (%) 98 Oxygen Delivery Method Room Air Physical Exam Vital Signs: Last Vital Signs Pulse 111 H 05/21/23 13:30 BP 134/68 05/21/23 13:30 Pulse Ox 98 05/21/23 13:30 Oxygen Delivery Method Room Air 05/21/23 13:30 BMI result Body Mass Index 24.6 Const General: comfortable Nutritional Appearance: well nourished Orientation/consciousness: patient oriented x3 HEENT Head: No normal to inspection Mouth: moist mucous membranes Neck Neck: Yes supple and Yes no JVD Resp Auscultation: clear to auscultation bilaterally, no rales and rub present Cardio Jugular venous distension: no JVD Palpation: no palpable S3 and no palpable S4 Heart sounds: no rubs GI Palpation (GI): Soft to palpation and nontender Percussion: No Fluid wave present General: Yes no CVA tenderness Back/Spine/Pelvis Back: no CVA tenderness Skin General skin exam: no rashes or lesions noted Neuro General: patient oriented x3 Extrem General: Yes no pedal edema and No clubbing Assessment & Plan Assessment & Plan (1) Chronic hyponatremia: Code(s): E87.1 - Hypo-osmolality and hyponatremia Plan . 68 yr old woman with Chronic Asymptomatic Hyponatremia / Hypotonic hyponatremia She has a dilute urine with polyuria - most likely due to polydipsia/ beer potomania TSH was normal; Cortisol normal Plan: Limit hypotonic fluid intake : Cut down on beer Replace sode with Gatorade Total fluid intake should be < 1.5L per 24 hours for now Goal pNa > 133 Orders: Orders Electrolytes 10 Weeks E87.1 - Hypo-osmolality and hyponatremia Blood Urea Nitrogen 10 Weeks E87.1 - Hypo-osmolality and hyponatremia Calcium 10 Weeks E87.1 - Hypo-osmolality and hyponatremia Creatinine 10 Weeks E87.1 - Hypo-osmolality and hyponatremia Coding Level of Care Code Est Pt Level 4 (58300) Diagnoses Chronic hyponatremia E87.1 Results Reviewed Nephrology Results: Hgb 13.6 g/dl (12.0-16.0) 07/25/22 WBC 6.4 X10*3/uL (4.8-10.8) 07/25/22 Plt Count 263 X10*3/uL (160-400) 07/25/22 Sodium 131 mmol/L (135-145) L 04/24/23 Potassium 3.6 mmol/L (3.3-5.1) 02/06/23 Chloride 97 mmol/L (96-108) 02/06/23 Carbon Dioxide 24 mmol/L (22-29) 02/06/23 BUN 6 mg/dL (9-16) L 02/06/23 Creatinine 0.67 mg/dL (0.5-1.4) 02/06/23 Calcium 9.6 mg/dL (8.4-10.2) 02/06/23 Phosphorus 3.0 mg/dL (2.7-4.5) 02/06/23 PTH Intact 23 pg/mL (16-77) 02/06/23 Urine Protein Negative mg/dL (Neg-Trace) 05/13/23 Urine Creatinine 53 mg/dL (20-275) 04/24/23
== END 2023-05-21 13:56 | disposition home or self-care (01) ==
PROVIDERS: PCP Internal Medicine; Visit Provider Internal Medicine Hypertension Specialist
DX: E87.1 Hypo-osmolality and hyponatremia (principal)
CPT/HCPCS: 99214

== ENCOUNTER → 2023-05-21 13:29 | Outpatient (BNVA) | payer MEDICARE, OTHER, SELFPAY | PROVIDERS: PCP Internal Medicine; Visit Provider Internal Medicine Hypertension Specialist | DX: E87.1 Hypo-osmolality and hyponatremia (principal) | CPT/HCPCS: 99212 ==

== ENCOUNTER 2023-06-12 13:37 | Outpatient (AMB) | payer MEDICARE, OTHER, SELFPAY ==
[2023-06-12 13:41] VITALS: BP 132/66; PULSE 105; O2SAT 98; BMI 24.2
--- NOTE | 2023-06-12 13:41 | MHC.PC.OV ---
Vital Signs 06/12/23 13:41 Height 5 ft 7.5 in Weight 157 lb 2 oz BMI 24.2 BP 132/66 Blood Pressure Location Rt brachial Position Sitting Pulse 105 H Pulse Source Pulse Oximeter Pulse Oximetry (%) 98 Oxygen Delivery Method Room Air Intake Visit Reasons: PE Allergies No Known Allergies [No Known Allergies*] Allergy (Verified 06/12/23 13:41) Medication List - Last Reconciled 06/12/23 by Hernandez Gonzalez MD alendronate 70 mg PO QWEEK 12 weeks amlodipine 10 mg PO DAILY 90 days atorvastatin 40 mg PO DAILY 90 days calcium citrate 500 mg (2 x 250 mg calcium) PO BID 90 days candesartan 32 mg PO DAILY 90 days cholecalciferol (vitamin D3) 25 mcg PO DAILY 30 days pantoprazole 40 mg PO DAILY Tobacco use date assessed: 06/12/23 Fall risk assessment: 1 Fall in past year Last assessed Fall Risk: 06/12/23 Dental Screening Dental Screen Date: 06/12/23 Did you have a dental visit in the last 12 months?: Yes Did you have a dental problem in the last 6 months where you did not have access to dental care?: No Was dental information given to patient?: Patient has dentist HPI PE HPI Details Physical exam appointment Patient have osteoporosis and kyphosis she is continuously in pain as far as her back is concerned Pain is located in the middle of the back She also have instability of right knee and tells me that it gave out and she fell 3 days ago Now she is having difficulty sleeping at night because of pain, Tylenol does not work, patient has nephropathy so she should not be taking ibuprofen that she is taking I have sent tramadol tablet, side effect of medication discussed with the patient, it will make her dizzy and drowsy and there is a risk of fall with the medication If she does wake up in the middle of the night patient will need some support. I have sent 30 tablets, it will also cause constipation I have ordered x-ray of her knee and orthopedic referral placed Mammogram was June of last year Colonoscopy was 2017 next 1 will be 2027 patient had 1 hyperplastic polyp done by Dr. Dial Due for labs Blood pressure is stable Medication list reviewed Follow-up 6 months [facility] Medical History Elevated cortisol level Vitamin D deficiency Osteoporosis Hyperparathyroidism Hyponatremia Age related osteoporosis Lipid disorder Hypertension, essential Surgical History Hx of oral surgery H/O kyphoplasty H/O left breast biopsy History of colonoscopy History of right cataract surgery Family History Father Lung cancer Mother CAD (coronary artery disease) Breast cancer Diabetes mellitus Partial blindness Sister Breast cancer Maternal Grandfather Unknown family medical history Maternal Grandmother Unknown family medical history Paternal Grandfather Unknown family medical history Paternal Grandmother Unknown family medical history Maternal Aunt Breast cancer Social History Housing: House Alcohol intake: current Alcohol intake frequency: a few times a week Patient Tobacco Use Status: Former Tobacco user Quit Date: 2018 Tobacco use type: Cigarette Cigarette Packs Per Day: 1.5 e-Cigarette/Vaping Use: Currently Using service: No Current occupational status: retired Cognitive needs: No Hearing needs: No Vision needs: No Questionnaire PHQ-9 Over the last 2 weeks, how often have you been bothered by any of the following problems? 1. Little interest or pleasure in doing things: not at all 2. Feeling down, depressed, or hopeless: not at all 3. Trouble falling or staying asleep, or sleeping too much: not at all 4. Feeling tired or having little energy: not at all 5. Poor appetite or overeating: not at all 6. Feeling bad about yourself - or that you are a failure or have let yourself or your family down: not at all 7. Trouble concentrating on things, such as reading the newspaper or watching television: not at all 8. Moving or speaking so slowly that other people could have noticed. Or the opposite - being so fidgety or restless that you have been moving around a lot more than usual: not at all 9. Thoughts that you would be better off or of hurting yourself in some way: not at all Total score: 0 Depression Screening Interpretation: Negative Depression Screening Done: Yes 61729 - PHQ-9 Billing: Yes Source: Developed by Drs. Ambrosio Paulino, Penny Guerra, Pranav Gonzales and colleagues, with an educational bernie from [employer]. Thrive Questionnaire Date Thrive assessed: 06/12/23 I am a: Patient What is your living situation today?: I have a steady place to live Within the past 12 months, did the food you bought not last and you didn't have the money to get more?: Never true Within the past 12 months, did you worry whether your food would run out before you got money to buy more?: Never true Do you have trouble paying for medicines?: No Do you have trouble getting transportation to medical appointments?: No Do you have trouble paying your heating and electricity bill?: No Do you have trouble taking care of your child, family member or friend?: No Do you have trouble with day-to-day activities such as bathing, preparing meals, shopping, managing finances, etc.?: No Are you currently unemployed and looking for a job?: No Are you interested in more education?: No Please select the resources that you would like help with: None Currently or been in a relationship where the following occur: no concerns reported THRIVE Score: 0 AUDIT C Alcohol Use Questionnaire (AUDIT-C) 1. How often do you have a drink containing alcohol?: 4 or more times a week 2. How many drinks containing alcohol do you have on a typical day when you are drinking?: 1 or 2 3. How often do you have six or more drinks on one occasion?: Never Total Score: 4 Score Reviewed/Action Taken: Yes ROSEANNE-7 AMB Questionnaire ROSEANNE-7 Date ROSEANNE - 7 assessed: 06/12/23 Feeling nervous, anxious, or on edge: 0 = Not at all Not being able to stop or control worryin = Not at all Worrying too much about different things: 0 = Not at all Trouble relaxin = Not at all Being so restless that it is hard to sit still: 0 = Not at all Becoming easily annoyed or irritable: 0 = Not at all Feeling afraid as if something awful might happen: 0 = Not at all Total ROSEANNE-7 score (0-4 normal; 5-9 mild; 10-14 moderate; 15-21 severe): 0 Source: Developed by Drs. Ambrosio Paulino, Penny Guerra, Pranav Gonzales and colleagues, with an educational bernie from [employer]. ROSEANNE-7 Assessment Billing ROSEANNE-7 Assessment Tool: ROSEANNE-7 Assessment 28447 Review of Systems Const Denies chills and Denies fever(s) Eyes Denies blurry vision ENT Denies epistaxis and Denies nasal discharge Card Denies chest pain Resp Denies chest congestion, Denies cough and Denies hemoptysis GI Denies diarrhea and Denies nausea Reports as per HPI Musc Denies abnormal gait Skin/Breast Denies rash Neuro Reports no additional complaints, Denies abnormal gait and Denies Sensory deficit (Neuro) Psych Reports no additional complaints Endo Reports no additional complaints Matthew/Lymph Reports as per HPI Aller/Immun Reports as per HPI Physical exam (Primary Care) Vital Signs: Last Vital Signs Pulse 105 H 06/12/23 13:41 BP 132/66 06/12/23 13:41 Pulse Ox 98 06/12/23 13:41 Oxygen Delivery Method Room Air 06/12/23 13:41 BMI result Body Mass Index 24.2 Tobacco/Smoking Status: Tobacco use Status Tobacco use date assessed 06/12/23 06/12/23 13:43 Patient Tobacco Use Status Former Tobacco user 06/12/23 13:43 Tobacco use type Cigarette 06/12/23 13:43 e-Cigarette/Vaping Use Currently Using 06/12/23 13:43 PHQ-9: PHQ-9 Score PHQ-9: Total score 0 06/12/23 14:07 Depression Screening Interpretation: Negative Thrive Assessment: Date of Thrive Assessment Date Thrive assessed 06/12/23 06/12/23 13:47 Currently or been in a relationship where the following occur: no concerns reported Const General: cooperative, comfortable and no acute distress Orientation/consciousness: patient oriented x3 HENMT Head: Yes normocephalic Eyes General: appearance normal, both eyes and all related structures Pupils: Equal, round and reactive pupils present EOM: EOMs intact bilaterally Neck Neck: Yes supple Thyroid: Thyroid normal Lymphatic: no lymphadenopathy noted Chest Breast/axilla palpation: normal palpation of the breasts Resp Effort & Inspection: normal respiratory effort, no cough and no stridor Auscultation: clear to auscultation bilaterally Cardio Rhythm: regular rhythm Heart sounds: S1 normal heart sound present and S2 normal heart sound present GI Palpation (GI): Soft to palpation and nontender Auscultation: normal bowel sounds General: Yes no CVA tenderness Back/Spine/Pelvis Back: no CVA tenderness Skin General skin exam: turgor normal Neuro General: patient oriented x3, tone normal and moves all extremities Cranial nerves: Yes Equal, round and reactive pupils present Sensory Exam: No Sensory deficit (Neuro) Coordination: tandem gait normal and Romberg test negative Extrem General: Yes normal exam except as noted and No edema Right lower extremity: no edema Left lower extremity: no edema Assessment and Plan Assessment & Plan (1) Encounter for general adult medical examination with abnormal findings: Code(s): Z00.01 - Encounter for general adult medical examination with abnormal findings (2) Chronic hyponatremia: Code(s): E87.1 - Hypo-osmolality and hyponatremia (3) Right knee injury: Code(s): S89.91XA - Unspecified injury of right lower leg, initial encounter Qualifiers: Encounter type: initial encounter Qualified Code(s): S89.91XA - Unspecified injury of right lower leg, initial encounter (4) Vitamin D deficiency: Code(s): E55.9 - Vitamin D deficiency, unspecified (5) Osteoporosis: Code(s): M81.0 - Age-related osteoporosis without current pathological fracture Qualifiers: Osteoporosis type: age-related Presence of current pathological fracture: without current pathological fracture Qualified Code(s): M81.0 - Age-related osteoporosis without current pathological fracture (6) Hyperparathyroidism: Code(s): E21.3 - Hyperparathyroidism, unspecified (7) Lipid disorder: Code(s): E78.9 - Disorder of lipoprotein metabolism, unspecified (8) Hypertension, essential: Code(s): I10 - Essential (primary) hypertension Plan Physical exam appointment Patient have osteoporosis and kyphosis she is continuously in pain as far as her back is concerned Pain is located in the middle of the back She also have instability of right knee and tells me that it gave out and she fell 3 days ago Now she is having difficulty sleeping at night because of pain, Tylenol does not work, patient has nephropathy so she should not be taking ibuprofen that she is taking I have sent tramadol tablet, side effect of medication discussed with the patient, it will make her dizzy and drowsy and there is a risk of fall with the medication If she does wake up in the middle of the night patient will need some support. I have sent 30 tablets, it will also cause constipation I have ordered x-ray of her knee and orthopedic referral placed Mammogram was June of last year Colonoscopy was 2017 next 1 will be 2027 patient had 1 hyperplastic polyp done by Dr. Dial Due for labs Blood pressure is stable Medication list reviewed Follow-up 6 months Orders: Orders Complete Blood Count Auto Diff Today E21.3 - Hyperparathyroidism, unspecified, E55.9 - Vitamin D deficiency, unspecified, E78.9 - Disorder of lipoprotein metabolism, unspecified, E87.1 - Hypo-osmolality and hyponatremia, I10 - Essential (primary) hypertension, M81.0 - Age-related osteoporosis without current pathological fracture, Z00.01 - Encounter for general adult medical examination with abnormal findings Comprehensive Met. Panel Today E21.3 - Hyperparathyroidism, unspecified, E55.9 - Vitamin D deficiency, unspecified, E78.9 - Disorder of lipoprotein metabolism, unspecified, E87.1 - Hypo-osmolality and hyponatremia, I10 - Essential (primary) hypertension, M81.0 - Age-related osteoporosis without current pathological fracture, Z00.01 - Encounter for general adult medical examination with abnormal findings LDL Cholesterol Direct Today E21.3 - Hyperparathyroidism, unspecified, E55.9 - Vitamin D deficiency, unspecified, E78.9 - Disorder of lipoprotein metabolism, unspecified, E87.1 - Hypo-osmolality and hyponatremia, I10 - Essential (primary) hypertension, M81.0 - Age-related osteoporosis without current pathological fracture, Z00.01 - Encounter for general adult medical examination with abnormal findings Vitamin D 25-OH (D2 and D3) Today E21.3 - Hyperparathyroidism, unspecified, E55.9 - Vitamin D deficiency, unspecified, E78.9 - Disorder of lipoprotein metabolism, unspecified, E87.1 - Hypo-osmolality and hyponatremia, I10 - Essential (primary) hypertension, M81.0 - Age-related osteoporosis without current pathological fracture, Z00.01 - Encounter for general adult medical examination with abnormal findings Referrals Orthopedics Referral S89.91XA - Unspecified injury of right lower leg, initial encounter Medications: New tramadol 50 mg PO BEDTIME PRN 30 tabs 0RF Knee pain Coding Level of Care Code Est Pt Prev Care >65y(40433) Diagnoses Encounter for general adult medical examination with abnormal findings Z00.01 Chronic hyponatremia E87.1 Injury of right knee, initial encounter S89.91XA Encounter type: initial encounter Vitamin D deficiency E55.9 Age-related osteoporosis without current pathological fracture M81.0 Osteoporosis type: age-related Presence of current pathological fracture: without current pathological fracture Hyperparathyroidism E21.3 Lipid disorder E78.9 Hypertension, essential I10 Additional Codes ROSEANNE-7 Assessment Billing - ROSEANNE-7 Assessment Tool: ROSEANNE-7 Assessment 42539 ([id number])
== END 2023-06-12 15:46 | disposition home or self-care (01) ==
PROVIDERS: Visit Provider Internal Medicine
DX: Z00.01 Encounter for general adult medical examination with abnormal findings (principal); E21.3 Hyperparathyroidism, unspecified; S89.91XA Unspecified injury of right lower leg, initial encounter; E87.1 Hypo-osmolality and hyponatremia; E55.9 Vitamin D deficiency, unspecified; M81.0 Age-related osteoporosis without current pathological fracture; E78.9 Disorder of lipoprotein metabolism, unspecified; I10 Essential (primary) hypertension
CPT/HCPCS: 99213; 99397

== ENCOUNTER 2023-06-12 14:09 | Outpatient (REF) | payer MEDICARE, OTHER, SELFPAY ==
--- NOTE | ~2023-06-12 | XR_ITS ---
EXAMINATION: XR KNEE, RIGHT CLINICAL INFORMATION: Injury COMPARISON: None available. TECHNIQUE: Four views of the right knee. FINDINGS: No fracture or joint effusion. Alignment is anatomic. Joint spaces are maintained. Atherosclerotic disease. XR/XR knee RT 4V IMPRESSION: No fracture or dislocation.
[2023-06-12 16:15] LABS: Basophils Absolute Auto 0.1 X10*3/uL (0.0-0.2); Basophils Percent Auto 0.7 % (0-2); Eosinophils Percent Auto 0.4 % (0-4); Hematocrit 41.3 % (37.0-47.0); Hemoglobin 14.4 g/dl (12.0-16.0); Imm Gran Abs Auto 0.02 X10*3/uL (0.00-0.03); Imm Gran Pct Auto 0.3 % (0.0-0.4); Lymphocytes Absolute Auto 1.9 X10*3/uL (1.2-4.9); Lymphocytes Percent Auto 25.7 % (20-40); MANUAL DIFF FLAG SCAN; Mean Corpuscular HGB Conc 34.9 g/dl (31.0-35.0); Mean Corpuscular Volume 94.5 fL (80.0-98.0); Mean Platelet Volume 10.5 fL (9.4-12.3); Monocytes Absolute Auto 0.6 X10*3/uL (0.1-1.2); Monocytes Percent Auto 7.7 % (2-11); Neutrophils Absolute Auto 4.8 x10*3/uL (2.0-8.3); Neutrophils Percent Auto 65.2 % (45-73); PLT CLUMP 1; Red Blood Count 4.37 X10*6/uL (4.20-5.50); Red Cell Distribution Width 13.9 % (11.0-16.0); SCAN SMEAR FLAG 1
[2023-06-12 16:24] LABS: Alanine Aminotransferase 14 U/L (0-31); Albumin Level 4.4 g/dL (3.5-5.0); Alkaline Phosphatase 45 U/L (39-117); Anion Gap 16 (12-20); Aspartate Amino Transferase 22 U/L (5-31); Bilirubin Total 0.7 mg/dL (0.0-1.0); Blood Urea Nitrogen 10 mg/dL (9-16); Carbon Dioxide 23 mmol/L (22-29); Chloride 98 mmol/L (96-108); Estimated Glomerular Filt Rate > 60; Glucose Random 107 mg/dL (60-115); Potassium 3.9 mmol/L (3.3-5.1); Sodium 133 mmol/L (135-145); Total Protein 7.9 g/dL (6.5-8.0)
[2023-06-12 16:40] LABS: Platelet Count 249 X10*3/uL (160-400); White Blood Count 7.4 X10*3/uL (4.8-10.8)
[2023-06-12 16:41] LABS: SLIDE REVIEW VERIFIED
[2023-06-16 14:14] LABS: LDL Cholesterol Direct 91 mg/dL (<100); Vitamin D 25-OH, D2 <4 ng/mL; Vitamin D 25-OH, D3 38 ng/mL; Vitamin D 25-OH, Total 38 ng/mL (30-100)
== END 2023-06-12 14:10 | disposition home or self-care (01) ==
LOC: HO.HMGCX 14:09
PROVIDERS: PCP Internal Medicine; Visit Provider Internal Medicine
DX: S89.91XA Unspecified injury of right lower leg, initial encounter (principal); E87.1 Hypo-osmolality and hyponatremia; E55.9 Vitamin D deficiency, unspecified; M81.0 Age-related osteoporosis without current pathological fracture; E21.3 Hyperparathyroidism, unspecified; E78.9 Disorder of lipoprotein metabolism, unspecified; I10 Essential (primary) hypertension; Z00.01 Encounter for general adult medical examination with abnormal findings
CPT/HCPCS: 36415; 73564; 80053; 82306; 83721; 85025

== ENCOUNTER 2023-07-09 14:16 | Outpatient (REF) | payer MEDICARE, OTHER, SELFPAY ==
--- NOTE | ~2023-07-09 | MM_ITS ---
EXAMINATION: BONE DENSITOMETRY CLINICAL INDICATION: Age-related osteoporosis without current pathological fracture. COMPARISON: Previous BD dated 04/27/2021 and baseline BD dated 03/22/2006. TECHNIQUE: Using a [employer] DXA System (software version: 13.1) manufactured by [employer], dual-energy x-ray absorptiometry was performed of the lumbar spine and left hip. The images are of good technical quality. Summary results are attached. FINDINGS: LEFT FEMUR, NECK: Current: BMD 0.514 g/cm2, Z-score -2.2, T-score -3.8, osteoporosis. Prior: BMD 0.643 g/cm2. Baseline: BMD 0.700 g/cm2. LEFT FEMUR, TOTAL: Current: BMD 0.589 g/cm2, Z-score -2.0, T-score -3.3, osteoporosis, 16.7% decrease from previous, 24.8% decrease from baseline (<5% change is not significant). Prior: BMD 0.707 g/cm2. Baseline: BMD 0.783 g/cm2. AP SPINE L1-L3 (excluding L4): The data of L1-L4 has been changed to exclude the L4 vertebral body, because degenerative sclerosis at this level may cause overestimation of lumbar spine density. Current: BMD 0.875 g/cm2, Z-score -1.0, T-score -2.5, osteoporosis, 0.6% decrease from previous, 11.0% decrease from baseline (<5% change is not significant). Prior: BMD 0.880 g/cm2. Baseline: BMD 0.983 g/cm2. IDENTIFIED RISK FACTORS: Height loss, history of fracture (adult), menopause, osteoporosis. HISTORY OF FRACTURE: Spine. MEDICATIONS: Calcium, vitamin D, bisphosphonate. MM/XR DEXA axial skeleton IMPRESSION: 1. DIAGNOSIS: Severe osteoporosis based on the lowest T-score value of -3.8 in the femoral neck, and the history of a spine fracture, applying World Health Organization criteria. 2. 10-YEAR FRACTURE RISK PREDICTION, FRAX: According to the guidelines, FRAX calculation should only be performed on patients in the osteopenia bone density category. Therefore, FRAX was not performed on this patient. 3. Treatment Recommendations: NOF guidelines recommend consideration for treatment in postmenopausal women and men age 50 and older presenting with the following: -A hip or vertebral (clinical or morphometric) fracture. -T-score less than or equal to -2.5 at the femoral neck or spine after appropriate evaluation to exclude secondary causes. -Low bone mass at the hip or spine and a 10-year fracture probability by FRAX of greater than or equal to 3% for hip fracture or greater than or equal to 20% for major osteoporotic fracture based on the [place] adapted WHO algorithm. 4. Other Recommendations: All treatment decisions require clinical judgment and consideration of individual patient factors, including patient preferences, comorbidities, previous drug use, risk factors not captured in the FRAX model (e.g. frailty, falls, vitamin D deficiency, increased bone turnover, interval significant decline in bone density) and possible under or overestimation of fracture risk by FRAX. Additional medical evaluation for secondary cause of low bone mineral density may be appropriate. FUTURE SCAN RECOMMENDATION: People with diagnosed cases of osteoporosis or at high risk for fracture should have regular bone mineral density tests. For patients eligible for Medicare, routine testing is allowed once every 2 years. The testing frequency can be increased to one year for patients who have rapidly progressing disease, those who are receiving or discontinuing medical therapy to restore bone mass, or have additional risk factors.
== END 2023-07-09 14:17 | disposition home or self-care (01) ==
LOC: HO.MAMMO 14:16
PROVIDERS: PCP Internal Medicine; Visit Provider Internal Medicine Endocrinology, Diabetes & Metabolism
DX: Z12.31 Encounter for screening mammogram for malignant neoplasm of breast (principal); Z13.820 Encounter for screening for osteoporosis; Z78.0 Asymptomatic menopausal state; M81.0 Age-related osteoporosis without current pathological fracture
CPT/HCPCS: 77063; 77067; 77080

== ENCOUNTER → 2023-07-09 15:00 | Outpatient (BNV) | payer MEDICARE, OTHER, SELFPAY | PROVIDERS: PCP Internal Medicine; Visit Provider Radiology Diagnostic Radiology | DX: Z12.31 Encounter for screening mammogram for malignant neoplasm of breast (principal) | CPT/HCPCS: 77063; 77067 ==

== ENCOUNTER 2023-07-18 10:49 | Outpatient (AMB) | payer MEDICARE, OTHER, SELFPAY ==
[2023-07-18 11:16] VITALS: BMI 27.0
--- NOTE | 2023-07-18 11:16 | A.OFFVIS_ITS ---
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 States pain started in ocotber. States her leg gave out and fell and has not improved. She is experiencing radiating pain down her leg.Denies numbness or tingling in toes. Patient has tried and failed OTC pain cream with no help. Patient referred by her PCP Hernandez Lopes Allergies No Known Allergies [No Known Allergies*] Allergy (Verified 07/18/23 11:19) HPI HPI Comments History of Present Illness Details At least a year of intermittent pain, lateral right knee, wraps around. Last January, sharp pain in the back of the knee and went down the floor. She couldn't bend due to pain. Nowadays, she has difficulty with flexing knee and adducting leg from an extended position. Denies inciting factors or falls or trauma. Denies swelling. History of back pain but does not think it is related or radiating down to right knee. Denies numbness. Antalgic gait, uses cane for balance. Treatment done so far: tramadol for the knee pain and back pain - does not help much for knee pain No therapy yet PFSH Medical History Elevated cortisol level Vitamin D deficiency Osteoporosis Hyperparathyroidism Hyponatremia Age related osteoporosis Lipid disorder Hypertension, essential Surgical History Hx of oral surgery H/O kyphoplasty H/O left breast biopsy History of colonoscopy History of right cataract surgery Family History Father Lung cancer Mother CAD (coronary artery disease) Breast cancer Diabetes mellitus Partial blindness Sister Breast cancer Maternal Grandfather Unknown family medical history Maternal Grandmother Unknown family medical history Paternal Grandfather Unknown family medical history Paternal Grandmother Unknown family medical history Maternal Aunt Breast cancer Social History Housing: House Alcohol intake: current Alcohol intake frequency: a few times a week Patient Tobacco Use Status: Former Tobacco user Quit Date: 2018 Tobacco use type: Cigarette Cigarette Packs Per Day: 1.5 e-Cigarette/Vaping Use: Currently Using service: No Current occupational status: retired Cognitive needs: No Hearing needs: No Vision needs: No Review of Systems Const All systems reviewed & are unremarkable except as noted in HPI and below Physical Exam Vital Signs: BMI result Body Mass Index 27.0 Constitutional: Patient appears to be in no acute distress, well nourished and well developed. MSK: No redness or warmth in right knee. No ligamentous laxity or crepitant. No increased effusion in the joint but swelling noted peripatellar with tenderness. No joint line tenderness. Slightly tender on right patella. Patellar grind test is positive right. Anterior drawer test is negative. Kami test is negative. Posterior drawer test is negative. Valgus and varus stress tests are negative. Guillermo test is negative. Strength is 5/5 in all muscle groups tested. No increased tone noted. Neurological: Neurologic examination of the upper and lower extremities was nonfocal with intact sensation, muscle stretch reflexes and without focal motor deficits . Dixon?s negative bilaterally. Babinski was down going bilaterally. Clonus was negative. Gait is antalgic without loss of balance. Results Reviewed Results Reviewed: I independently reviewed the results of the following: Reviewed images of knee xray with patient, showed preserved joint space. Ordering Physician: Hernandez Gonzalez MD Date of Service: 06/12/23 Procedure(s): XR knee RT 4V Accession Number(s): [id number] cc: Hernandez Gonzalez MD~ EXAMINATION: XR KNEE, RIGHT CLINICAL INFORMATION: Injury COMPARISON: None available. TECHNIQUE: Four views of the right knee. FINDINGS: No fracture or joint effusion. Alignment is anatomic. Joint spaces are maintained. Atherosclerotic disease. XR/XR knee RT 4V IMPRESSION: No fracture or dislocation. EXAMINATION: BONE DENSITOMETRY CLINICAL INDICATION: Age-related osteoporosis without current pathological fracture. COMPARISON: Previous BD dated 04/27/2021 and baseline BD dated 03/22/2006. TECHNIQUE: Using a [employer] DXA System (software version: 13.1) manufactured by [employer], dual-energy x-ray absorptiometry was performed of the lumbar spine and left hip. The images are of good technical quality. Summary results are attached. FINDINGS: LEFT FEMUR, NECK: Current: BMD 0.514 g/cm2, Z-score -2.2, T-score -3.8, osteoporosis. Prior: BMD 0.643 g/cm2. Baseline: BMD 0.700 g/cm2. LEFT FEMUR, TOTAL: Current: BMD 0.589 g/cm2, Z-score -2.0, T-score -3.3, osteoporosis, 16.7% decrease from previous, 24.8% decrease from baseline (<5% change is not significant). Prior: BMD 0.707 g/cm2. Baseline: BMD 0.783 g/cm2. AP SPINE L1-L3 (excluding L4): The data of L1-L4 has been changed to exclude the L4 vertebral body, because degenerative sclerosis at this level may cause overestimation of lumbar spine density. Current: BMD 0.875 g/cm2, Z-score -1.0, T-score -2.5, osteoporosis, 0.6% decrease from previous, 11.0% decrease from baseline (<5% change is not significant). Prior: BMD 0.880 g/cm2. Baseline: BMD 0.983 g/cm2. IDENTIFIED RISK FACTORS: Height loss, history of fracture (adult), menopause, osteoporosis. HISTORY OF FRACTURE: Spine. MEDICATIONS: Calcium, vitamin D, bisphosphonate. MM/XR DEXA axial skeleton IMPRESSION: 1. DIAGNOSIS: Severe osteoporosis based on the lowest T-score value of -3.8 in the femoral neck, and the history of a spine fracture, applying World Health Organization criteria. 2. 10-YEAR FRACTURE RISK PREDICTION, FRAX: According to the guidelines, FRAX calculation should only be performed on patients in the osteopenia bone density category. Therefore, FRAX was not performed on this patient. 3. Treatment Recommendations: NOF guidelines recommend consideration for treatment in postmenopausal women and men age 50 and older presenting with the following: -A hip or vertebral (clinical or morphometric) fracture. -T-score less than or equal to -2.5 at the femoral neck or spine after appropriate evaluation to exclude secondary causes. -Low bone mass at the hip or spine and a 10-year fracture probability by FRAX of greater than or equal to 3% for hip fracture or greater than or equal to 20% for major osteoporotic fracture based on the [place] adapted WHO algorithm. 4. Other Recommendations: All treatment decisions require clinical judgment and consideration of individual patient factors, including patient preferences, comorbidities, previous drug use, risk factors not captured in the FRAX model (e.g. frailty, falls, vitamin D deficiency, increased bone turnover, interval significant decline in bone density) and possible under or overestimation of fracture risk by FRAX. Additional medical evaluation for secondary cause of low bone mineral density may be appropriate. FUTURE SCAN RECOMMENDATION: People with diagnosed cases of osteoporosis or at high risk for fracture should have regular bone mineral density tests. For patients eligible for Medicare, routine testing is allowed once every 2 years. The testing frequency can be increased to one year for patients who have rapidly progressing disease, those who are receiving or discontinuing medical therapy to restore bone mass, or have additional risk factors. I reviewed records from the following: PCP Assessment & Plan Assessment & Plan (1) Prepatellar bursitis, right knee: Code(s): M70.41 - Prepatellar bursitis, right knee (2) Pain of right patellofemoral joint: Code(s): M25.561 - Pain in right knee Plan Suspect prepatellar bursitis. No signs of meniscal injury on exam. No DJD on xray. Will refer to PT. She mentions that she will be spending summer months in [place], beginning August 27. Advised her to start PT right away and ask to for exercises she can do on her own. I'll see her before she leaves for [place] to reevaluate. Considering injection if not improved with PT. Assessment and plan discussed with patient, and patient was agreeable. All questions were answered thoroughly. Melanie Tavera MD, BETSY Board Certified, [place] Board of Physical Medicine and Rehabilitation (ABPMR) Board Certified, [place] Board of Electrodiagnostic Medicine (ABEM) Coding Level of Care Code New Pt Level 4 (96094) Diagnoses Prepatellar bursitis, right knee M70.41 Pain of right patellofemoral joint M25.561
== END 2023-07-18 12:04 | disposition home or self-care (01) ==
PROVIDERS: PCP Internal Medicine; Visit Provider Physical Medicine & Rehabilitation
DX: M70.41 Prepatellar bursitis, right knee (principal); M25.561 Pain in right knee
CPT/HCPCS: 99204

== ENCOUNTER → 2023-07-18 10:49 | Outpatient (BNVA) | payer MEDICARE, OTHER, SELFPAY | PROVIDERS: PCP Internal Medicine; Visit Provider Physical Medicine & Rehabilitation | DX: M81.0 Age-related osteoporosis without current pathological fracture (principal); E87.1 Hypo-osmolality and hyponatremia; M70.41 Prepatellar bursitis, right knee; M25.561 Pain in right knee | CPT/HCPCS: 99202; 99212 ==

== ENCOUNTER 2023-07-18 14:55 | Outpatient (AMB) | payer MEDICARE, OTHER, SELFPAY ==
--- NOTE | 2023-07-18 14:56 | A.OFFVIS_ITS ---
Intake Vital Signs 07/18/23 14:57 Height 5 ft 7.5 in Weight 158 lb 4.67 oz BMI 24.4 BP 154/70 H Blood Pressure Location Lt brachial Position Sitting Pulse 98 Pulse Source Pulse Oximeter Intake Visit Reasons: Osteoporosis-confirmed Intake Note: Patient present today for Osteoporosis follow up visit. Lobby Porter Required: No Accompanied by: self Allergies No Known Allergies [No Known Allergies*] Allergy (Verified 07/18/23 15:06) HPI HPI Comments History of Present Illness Details 68 YO Female who is seen in F/U for Osteoporosis. First diagnosed in 2009. Received treatment in the past with Actonel for just a few months. This caused worsening GERD so it was stopped. She was then switched to Fosamax as of September 2020, and has remained on this with 3 separate 3 month pauses due to dental work. She has tolerated this well. She is currently off the Fosamax due to a recent dental extraction. No history of pathologic fracture or ONJ. Has 0 servings of dietary calcium per day. Takes Calcium supplement 1000 mg daily in divided doses. Takes 2000 IU of Vitamin D daily. Does use a daily PPI. Denies every using anticoagulant, antiepileptic or glucocorticoid medication. Fracture history: Had a compression fracture of the T11 vertebrate, with kyphoplasty 05/2019. Height loss: Reports, but is unable to quantify. MANUFA[employer]URING [employer] history: Menarche was age 10. Menses were always regular. . Menopause was margartio 40's. She did not use HRT after. Denies history of Kidney stones: Has a family history of Osteoporosis in her Sister. UTD on dental cleanings and sees dentist every 6 months. Does have a planned dental extraction in April. DXA: 04/27/2021 FINDINGS: AP SPINE L1-L3 (excluding L4): The data of L1-L4 has been changed to exclude the L4 vertebral body, because degenerative changes at this level may cause overestimation of lumbar spine density. Current: BMD 0.880 g/cm2, Z-score -1.2, T-score -2.4, osteopenia, 4.5% decrease from previous, 10.5% decrease from baseline (<5% change is not significant). Prior: BMD 0.921 g/cm2. Baseline: BMD 0.983 g/cm2. LEFT FEMUR, NECK: Current: BMD 0.643 g/cm2, Z-score -1.5, T-score -2.8, osteoporosis. Prior: BMD 0.621 g/cm2. Baseline: BMD 0.700 g/cm2. LEFT FEMUR, TOTAL: Current: BMD 0.707 g/cm2, Z-score -1.3, T-score -2.4, osteopenia, 1.4% increase from previous, 9.7% decrease from baseline (<5% change is not significant). Prior: BMD 0.697 g/cm2. Baseline: BMD 0.783 g/cm2. LEFT FOREARM RADIUS 33%: BMD 0.597 g/cm2, Z-score -1.6, T-score -3.2, osteoporosis. Prior:? Not previously measured. Labs: Laboratory Tests 01/31/22 01/31/22 11:10 11:10 Creatinine 0.72 Estimated GFR > 60 25-OH Vitamin D To giana 45.0 PTH Intact 49 Calcium (PTH Intac t) 9.5 been on alendronate since 1 yr [facility] Medical History Elevated cortisol level Vitamin D deficiency Osteoporosis Hyperparathyroidism Hyponatremia Age related osteoporosis Lipid disorder Hypertension, essential Surgical History Hx of oral surgery H/O kyphoplasty H/O left breast biopsy History of colonoscopy History of right cataract surgery Family History Father Lung cancer Mother CAD (coronary artery disease) Breast cancer Diabetes mellitus Partial blindness Sister Breast cancer Maternal Grandfather Unknown family medical history Maternal Grandmother Unknown family medical history Paternal Grandfather Unknown family medical history Paternal Grandmother Unknown family medical history Maternal Aunt Breast cancer Social History Housing: House Alcohol intake: current Alcohol intake frequency: a few times a week Patient Tobacco Use Status: Former Tobacco user Quit Date: 2018 Tobacco use type: Cigarette Cigarette Packs Per Day: 1.5 e-Cigarette/Vaping Use: Currently Using service: No Current occupational status: retired Cognitive needs: No Hearing needs: No Vision needs: No Assessment & Plan Assessment & Plan (1) Age related osteoporosis: Code(s): M81.0 - Age-related osteoporosis without current pathological fracture Plan: This 68-year-old white female with history of osteoporosis with negative secondary workup. There is a history of compression fracture kyphoplasty. She is currently on alendronate 70 mg q.week. DEXA bone density continues to shows moderate to severe osteoporosis. Urine NTX is suppressed Plan is to talk to the patient about transitioning to anabolic therapy either with Evenity or Tymlos or Forteo and then transition back to alendronate for (2) Hyponatremia: Code(s): E87.1 - Hypo-osmolality and hyponatremia Plan: Chronic hyponatremia. Workup is not definitive but suggestive of SIADH. Follows with Nephrology Treatment is as per Nephrology with fluid restrict. She is attempting fluid restriction has got some increase in sodium. We also talked about possible use of urea as there is a new form of Ure-Na but the patient is not interested in this the present time Medications: Refilled calcium citrate 500 mg (2 x 250 mg calcium) PO BID 90 days 360 tabs 1RF M81.0 - Age-related osteoporosis without current pathological fracture, Z86.39 - Personal history of other endocrine, nutritional and metabolic disease Coding Level of Care Code Est Pt Level 3 (80096) Diagnoses Age related osteoporosis M81.0 Hyponatremia E87.1
[2023-07-18 14:57] VITALS: BP 154/70; PULSE 98; BMI 24.4
== END 2023-07-18 15:41 | disposition home or self-care (01) ==
PROVIDERS: PCP Internal Medicine; Visit Provider Internal Medicine Endocrinology, Diabetes & Metabolism
DX: M81.0 Age-related osteoporosis without current pathological fracture (principal); E87.1 Hypo-osmolality and hyponatremia
CPT/HCPCS: 99213

== ENCOUNTER 2023-08-07 12:16 | Outpatient (REF) | payer MEDICARE, OTHER, SELFPAY ==
[2023-08-07 16:46] LABS: Anion Gap 13 (12-20); Blood Urea Nitrogen 6 mg/dL (9-16); Calcium 9.5 mg/dL (8.4-10.2); Carbon Dioxide 23 mmol/L (22-29); Chloride 94 mmol/L (96-108); Estimated Glomerular Filt Rate > 60; Potassium 3.8 mmol/L (3.3-5.1); Sodium 126 mmol/L (135-145)
== END 2023-08-07 12:17 | disposition home or self-care (01) ==
LOC: HO.HMGCLDS 12:16
PROVIDERS: PCP Internal Medicine; Visit Provider Internal Medicine Hypertension Specialist
DX: E87.1 Hypo-osmolality and hyponatremia (principal)
CPT/HCPCS: 36415; 80051; 82310; 82565; 84520

== ENCOUNTER 2023-08-20 13:22 | Outpatient (AMB) | payer MEDICARE, OTHER, SELFPAY ==
[2023-08-20 13:26] VITALS: BP 116/58; PULSE 110; O2SAT 97; BMI 23.5
--- NOTE | 2023-08-20 13:26 | HO.NEPHOV_ITS ---
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 SHe has a h/o HTN and currently on Amlodipine and Candesartan Not on any diuretics- especially thiazides She stays on a regular diet h/o Smoking : 1 and 1/2 pack for 40 years. Quit 2- 3 yrs ago. h/o mild COPD. Does not require treatment/inhalers h/o drinking beer - everyday Says she drinks 5- 7 bottles Granda light a week Also drinks 3 + bottles of Pepsi a day , in addition to other fluids- coffee etc She underwent 24 hour urine collection 3 times in 2 years. The volume was 2800, 3000 and 3500 and urine osmolarity was relatively low at 191 05/21/23 Feels ok Drinks about 2 L fluids including Pepsi and Beer 08/20/2023 She lost her on 07/22/2023. She started drinking excessive beer again. [facility] Medical History Elevated cortisol level Vitamin D deficiency Osteoporosis Hyperparathyroidism Hyponatremia Age related osteoporosis Lipid disorder Hypertension, essential Surgical History Hx of oral surgery H/O kyphoplasty H/O left breast biopsy History of colonoscopy History of right cataract surgery Family History Father Lung cancer Mother CAD (coronary artery disease) Breast cancer Diabetes mellitus Partial blindness Sister Breast cancer Maternal Grandfather Unknown family medical history Maternal Grandmother Unknown family medical history Paternal Grandfather Unknown family medical history Paternal Grandmother Unknown family medical history Maternal Aunt Breast cancer Social History Housing: House Alcohol intake: current Alcohol intake frequency: a few times a week Patient Tobacco Use Status: Former Tobacco user Quit Date: 2018 Tobacco use type: Cigarette Cigarette Packs Per Day: 1.5 e-Cigarette/Vaping Use: Currently Using service: No Current occupational status: retired Cognitive needs: No Hearing needs: No Vision needs: No Physical Exam Vital Signs: Last Vital Signs Pulse 110 H 08/20/23 13:26 BP 116/58 L 08/20/23 13:26 Pulse Ox 97 08/20/23 13:26 Oxygen Delivery Method Room Air 08/20/23 13:26 BMI result Body Mass Index 23.5 Const General: comfortable Nutritional Appearance: well nourished Orientation/consciousness: patient oriented x3 HEENT Head: No normal to inspection Mouth: moist mucous membranes Neck Neck: Yes supple and Yes no JVD Resp Auscultation: clear to auscultation bilaterally, no rales and rub present Cardio Jugular venous distension: no JVD Palpation: no palpable S3 and no palpable S4 Heart sounds: no rubs GI Palpation (GI): Soft to palpation and nontender Percussion: No Fluid wave present General: Yes no CVA tenderness Back/Spine/Pelvis Back: no CVA tenderness Skin General skin exam: no rashes or lesions noted Neuro General: patient oriented x3 Extrem General: Yes no pedal edema and No clubbing Results Reviewed Nephrology Results: Hgb 14.4 g/dl (12.0-16.0) 06/12/23 WBC 7.4 X10*3/uL (4.8-10.8) 06/12/23 Plt Count 249 X10*3/uL (160-400) 06/12/23 Sodium 126 mmol/L (135-145) L 08/07/23 Potassium 3.8 mmol/L (3.3-5.1) 08/07/23 Chloride 94 mmol/L (96-108) L 08/07/23 Carbon Dioxide 23 mmol/L (22-29) 08/07/23 BUN 6 mg/dL (9-16) L 08/07/23 Creatinine 0.65 mg/dL (0.5-1.4) 08/07/23 Calcium 9.5 mg/dL (8.4-10.2) 08/07/23 Urine Protein Negative mg/dL (Neg-Trace) 05/13/23 Assessment & Plan Assessment & Plan (1) Chronic hyponatremia: Code(s): E87.1 - Hypo-osmolality and hyponatremia Category: Medical Plan . 68 yr old woman with Chronic Asymptomatic Hyponatremia / Hypotonic hyponatremia She has a dilute urine with polyuria - most likely due to polydipsia/ beer potomania TSH was normal; Cortisol normal Plan: Limit hypotonic fluid intake : Cut down on beer Replace sode with Gatorade Total fluid intake should be < 1.5L per 24 hours for now Repeat labs ordered for next 1 week Goal pNa > 133 Orders: Orders Basic Metabolic Panel 2 Days E87.1 - Hypo-osmolality and hyponatremia Coding Level of Care Code Est Pt Level 4 (33887) Diagnoses Chronic hyponatremia E87.1
== END 2023-08-20 13:40 | disposition home or self-care (01) ==
PROVIDERS: PCP Internal Medicine; Visit Provider Internal Medicine Hypertension Specialist
DX: E87.1 Hypo-osmolality and hyponatremia (principal)
CPT/HCPCS: 99214

== ENCOUNTER → 2023-08-20 13:22 | Outpatient (BNVA) | payer MEDICARE, OTHER, SELFPAY | PROVIDERS: PCP Internal Medicine; Visit Provider Internal Medicine Hypertension Specialist | DX: E87.1 Hypo-osmolality and hyponatremia (principal) | CPT/HCPCS: 99212 ==

== ENCOUNTER 2023-08-22 10:54 | Outpatient (AMB) | payer MEDICARE, OTHER, SELFPAY ==
--- NOTE | 2023-08-22 11:14 | A.OFFVIS_ITS ---
Vital Signs 08/22/23 11:46 Height 5 ft 7.5 in Weight 153 lb BMI 23.6 Intake Visit Reasons: EP, Right knee follow up Intake Note: Mildred 68 yr old female presents today for her follow up visit for her right knee prepatellar bursitis to discuss injection prior to leaving to [place]. Allergies No Known Allergies [No Known Allergies*] Allergy (Verified 08/22/23 11:24) Medication List - Last Reconciled 08/22/23 by Melanie Tavera MD alendronate 70 mg PO QWEEK 12 weeks amlodipine 10 mg PO DAILY 90 days atorvastatin 40 mg PO DAILY 90 days calcium citrate 500 mg (2 x 250 mg calcium) PO BID 90 days candesartan 32 mg PO DAILY 90 days cholecalciferol (vitamin D3) 25 mcg PO DAILY 30 days pantoprazole 40 mg PO DAILY HPI Comments Details: At least a year of intermittent pain, lateral right knee, wraps around. Last January, sharp pain in the back of the knee and went down the floor. She couldn't bend due to pain. Nowadays, she has difficulty with flexing knee and adducting leg from an extended position. Denies inciting factors or falls or trauma. Denies swelling. History of back pain but does not think it is related or radiating down to right knee. Denies numbness. Antalgic gait, uses cane for balance. Treatment done so far: tramadol for the knee pain and back pain - does not help much for knee pain No therapy yet Not much changed since I last saw her. She had gone up to [place]. She saw sadly lost her July 21. She says she is safe, adjusting, has brother in law checking on her daily. Uses cane for walking. Has not been able to go to PT since last visit. The hinged knee brace she's been wearing helps her with going up/down stairs. But it has started to rub against right knee laterally. [facility] Medical History (Updated 08/22/23 @ 11:49 by Melanie Tavera MD) Patellofemoral pain syndrome of right knee Elevated cortisol level Vitamin D deficiency Osteoporosis Hyperparathyroidism Hyponatremia Age related osteoporosis Lipid disorder Hypertension, essential Surgical History Hx of oral surgery H/O kyphoplasty H/O left breast biopsy History of colonoscopy History of right cataract surgery Family History Father Lung cancer Mother CAD (coronary artery disease) Breast cancer Diabetes mellitus Partial blindness Sister Breast cancer Maternal Grandfather Unknown family medical history Maternal Grandmother Unknown family medical history Paternal Grandfather Unknown family medical history Paternal Grandmother Unknown family medical history Maternal Aunt Breast cancer Social History Housing: House Alcohol intake: current Alcohol intake frequency: a few times a week Patient Tobacco Use Status: Former Tobacco user Quit Date: 2018 Tobacco use type: Cigarette Cigarette Packs Per Day: 1.5 e-Cigarette/Vaping Use: Currently Using service: No Current occupational status: retired Cognitive needs: No Hearing needs: No Vision needs: No Physical Exam Vital Signs: BMI result Body Mass Index 23.6 Constitutional: Patient appears to be in no acute distress, well nourished and well developed. MSK: No redness or warmth in right knee. No ligamentous laxity or crepitant. No increased effusion in the joint and no more swelling. Tender both medial and lateral joint line tenderness. Tender on right patella. Patellar grind test is positive right. Anterior drawer test is negative. Kami test is negative. Posterior drawer test is negative. Valgus and varus stress tests are negative. Guillermo test is negative. Strength is 5/5 in all muscle groups tested. No increased tone noted. Neurological: Neurologic examination of the upper and lower extremities was nonfocal with intact sensation, muscle stretch reflexes and without focal motor deficits . Dixon?s negative bilaterally. Babinski was down going bilaterally. Clonus was negative. Gait is antalgic without loss of balance. Office Procedures Joint Injection/Drain Joint Injection/Drain Details: Consent obtained. Patient sits with [right] knee flexed. Medial edge of patella is identified and marked. Area is cleansed with betadine solution. A penicillin gauge needle is injected at an angle laterally and slightly upwards under the patella. Solution containing [40 mg] Kenalog and [3m] of 2% Lidocaine is instilled. Patient tolerated procedure well without complications. Post-injection instructions given. Primary Site: right knee Injected: 40 mg of, Kenalog and with 3 mL of (2% lidocaine) Procedure: The patient tolerated the procedure well Coding - Large joint Procedure code (CPT) selection complete Results Reviewed Results Reviewed: Ordering Physician: Hernandez Gonzalez MD Date of Service: 06/12/23 Procedure(s): XR knee RT 4V Accession Number(s): [id number] cc: Hernandez Gonzalez MD~ EXAMINATION: XR KNEE, RIGHT CLINICAL INFORMATION: Injury COMPARISON: None available. TECHNIQUE: Four views of the right knee. FINDINGS: No fracture or joint effusion. Alignment is anatomic. Joint spaces are maintained. Atherosclerotic disease. XR/XR knee RT 4V IMPRESSION: No fracture or dislocation. Assessment & Plan Assessment & Plan (1) Patellofemoral pain syndrome of right knee: Code(s): M22.2X1 - Patellofemoral disorders, right knee Category: Medical (2) Prepatellar bursitis, right knee: Code(s): M70.41 - Prepatellar bursitis, right knee Category: Medical Plan Suspect pain is patellofemorael rather than DJD. The bursitis is actually improved. Pain still bothers her walking. Injection done as above. Immediate anesthetic relief felt and she felt good walking. Referral to PT: work on right SI joint, myofascial pain on upper trapezius, gait and fall prevention. Assessment and plan discussed with patient, and patient was agreeable. All questions were answered thoroughly. Follow-up 2 months. Melanie Tavera MD, BETSY Board Certified, [place] [employer] and Rehabilitation (ABPMR) Board Certified, [place] [employer] Electro[employer] (ABEM) Orders: Orders AMB Joint Injection/Aspiration Today M22.2X1 - Patellofemoral disorders, right knee PT Evaluation and Treatment Today M22.2X1 - Patellofemoral disorders, right knee, M70.41 - Prepatellar bursitis, right knee Coding Level of Care Code Est Pt Level 4 (85705) Diagnoses Patellofemoral pain syndrome of right knee M22.2X1 Prepatellar bursitis, right knee M70.41 CPT Codes Coding - Large joint: 21894 - Large joint ([id number])
[2023-08-22 11:46] VITALS: BMI 23.6
== END 2023-08-22 11:47 | disposition home or self-care (01) ==
PROVIDERS: PCP Internal Medicine; Visit Provider Physical Medicine & Rehabilitation
DX: M22.2X1 Patellofemoral disorders, right knee (principal); M70.41 Prepatellar bursitis, right knee
CPT/HCPCS: 20610; 99213

== ENCOUNTER → 2023-08-22 10:54 | Outpatient (BNVA) | payer MEDICARE, OTHER, SELFPAY | PROVIDERS: PCP Internal Medicine; Visit Provider Physical Medicine & Rehabilitation | DX: M22.2X1 Patellofemoral disorders, right knee (principal); M70.41 Prepatellar bursitis, right knee | CPT/HCPCS: 20610; 99212; J3301 ==

== ENCOUNTER 2023-09-05 10:43 | Outpatient (REF) | payer MEDICARE, OTHER, SELFPAY ==
[2023-09-05 13:38] LABS: Anion Gap 14 (12-20); Blood Urea Nitrogen 5 mg/dL (9-16); Calcium 9.6 mg/dL (8.4-10.2); Carbon Dioxide 23 mmol/L (22-29); Chloride 97 mmol/L (96-108); Estimated Glomerular Filt Rate > 60; Glucose Random 97 mg/dL (60-115); Potassium 3.5 mmol/L (3.3-5.1); Sodium 130 mmol/L (135-145)
== END 2023-09-05 10:44 | disposition home or self-care (01) ==
LOC: HO.HMGCLDS 10:43
PROVIDERS: PCP Internal Medicine; Visit Provider Internal Medicine Hypertension Specialist
DX: E78.1 Pure hyperglyceridemia (principal)
CPT/HCPCS: 36415; 80048

== ENCOUNTER 2023-10-02 13:00 | Outpatient (RCR) | payer MEDICARE, OTHER, SELFPAY ==
--- NOTE | 2023-09-02 14:13 | MHC.PT.EP ---
[facility] [place] Office [place] Office [place] Office [address] [place] [address] [phone] F: [phone] F: [phone] F: [phone] F: [phone] Physical Therapy Plan of Care Date of Evaluation: 09/02/23 Date of Surgery: Diagnosis: prepatellar bursitis R knee Assessment: 68 y/o female referred to PT with prepatella bursitis. S/s consistent with PFPS and ?overlapping hip dysfunction which will be monitored. Reports pain and difficulty with ascending/ descending stairs, walking, bending knee, squatting, carrying heavy loads, and fearful of it giving way. Examiantion shows decreased hip/knee strength, decrease R knee ROM, decreased R patella mobility, decreased gastroc/ HS/ hip flexor length, impaired balance, and impaired gait pattern. Recommend PT 2x/week for 5 weeks to address impairments, implement HEP, and optimize functional mobility. Frequency and Duration: The patient will be seen 2x/week for 5 weeks Short Term Goals: 3 weeks I with HEP Manager [employer] Goals: 5 weeks I with HEP and self management Improve LEFS to 50/80 Pt will be able to ascend/ descend stairs in step through pattern with railing Treatment Plan: Modalities to reduce pain, spasms and effusion. Manual therapy to restore motion and function. Therapeutic exercise to improve strength and flexibility. Neuromuscular re-education for posture and balance. Therapeutic activities to return to functional activities of daily living. Electronically signed by: Lila Berg PT Please sign and return to therapist. Thank you for your referral.
--- NOTE | 2023-12-31 08:23 | MHC.PT.DC ---
[facility] [place] Office [place] Office [place] Office [address] [place] [address] [phone] F: [phone] F: [phone] F: [phone] F: [phone] Physical Therapy Discharge Report Diagnosis: prepatellar bursitis R knee Date of Surgery: Date of Evaluation: 09/02/23 Date of Discharge: 12/31/23 Treatments to Date: 9 Cancellations to Date: 0 No Shows to Date: 0 Discharge Status: Improved Function Independent with HEP Discharge Summary: Pt reports overall feeling better except when the weather changes and her knee will then be achy again. She is I with HEP and at this time, she will f/u with MD and will d/c to I HEP. No further questions at this time. Electronically signed by: Lila Berg PT Please sign and return to therapist. Thank you for your referral.
== END 2023-12-31 08:24 | disposition home or self-care (01) ==
LOC: HO.PTCHIC 13:00
PROVIDERS: PCP Internal Medicine; Visit Provider Physical Medicine & Rehabilitation
DX: M22.2X1 Patellofemoral disorders, right knee (principal); M70.41 Prepatellar bursitis, right knee
CPT/HCPCS: 97110; 97112; 97162; 97530

== ENCOUNTER 2023-11-18 15:21 | Outpatient (AMB) | payer MEDICARE, OTHER, SELFPAY ==
--- NOTE | 2023-11-18 15:24 | HO.NEPHOV_ITS ---
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 Accompanied by: Self / Same As Patient Allergies No Known Allergies [No Known Allergies*] Allergy (Verified 11/18/23 15:26) Medication List - Last Reconciled 11/18/23 by Mario Kaufman MD alendronate 70 mg PO QWEEK 12 weeks amlodipine 10 mg PO DAILY 90 days atorvastatin 40 mg PO DAILY 90 days calcium citrate 500 mg (2 x 250 mg calcium) PO BID 90 days candesartan 32 mg PO DAILY 90 days cholecalciferol (vitamin D3) 25 mcg PO DAILY 30 days pantoprazole 40 mg PO DAILY HPI Comments Details: 68 yr old woman referred for Hyponatremia in a setting of HTN And osteoporosis Based on EMR, she has chronic asymptomatic hyponatremia Usually pNa is around 131 mmol/L Lowest value was 128 few years ago. SHe has a h/o HTN and currently on Amlodipine and Candesartan Not on any diuretics- especially thiazides She stays on a regular diet h/o Smoking : 1 and 1/2 pack for 40 years. Quit 2- 3 yrs ago. h/o mild COPD. Does not require treatment/inhalers h/o drinking beer - everyday Says she drinks 5- 7 bottles Granda light a week Also drinks 3 + bottles of Pepsi a day , in addition to other fluids- coffee etc She underwent 24 hour urine collection 3 times in 2 years. The volume was 2800, 3000 and 3500 and urine osmolarity was relatively low at 191 05/21/23 Feels ok Drinks about 2 L fluids including Pepsi and Beer 08/20/2023 She lost her on 07/22/2023. She started drinking excessive beer again. 11/18/23 Still drinks about 2 Michelob Ultras, in addition to tea, flavoured water ! [facility] Medical History (Updated 08/22/23 @ 11:49 by Melanie Tavera MD) Patellofemoral pain syndrome of right knee Elevated cortisol level Vitamin D deficiency Osteoporosis Hyperparathyroidism Hyponatremia Age related osteoporosis Lipid disorder Hypertension, essential Surgical History Hx of oral surgery H/O kyphoplasty H/O left breast biopsy History of colonoscopy History of right cataract surgery Family History Father Lung cancer Mother CAD (coronary artery disease) Breast cancer Diabetes mellitus Partial blindness Sister Breast cancer Maternal Grandfather Unknown family medical history Maternal Grandmother Unknown family medical history Paternal Grandfather Unknown family medical history Paternal Grandmother Unknown family medical history Maternal Aunt Breast cancer Social History Housing: House Alcohol intake: current Alcohol intake frequency: a few times a week Patient Tobacco Use Status: Former Tobacco user Tobacco use type: Cigarette Cigarette Packs Per Day: 1.5 e-Cigarette/Vaping Use: Currently Using service: No Current occupational status: retired Cognitive needs: No Hearing needs: No Vision needs: No Physical Exam Vital Signs: Last Vital Signs Pulse 93 11/18/23 15:25 BP 140/68 H 11/18/23 15:25 Pulse Ox 98 11/18/23 15:25 Oxygen Delivery Method Room Air 11/18/23 15:25 BMI result Body Mass Index 22.7 Const General: comfortable; No acute distress Orientation/consciousness: patient oriented x3 Eyes General: appearance normal, both eyes and all related structures Visual Mejia: normal visual mejia by confrontation Neck Neck: Yes supple and Yes no JVD Resp Effort & Inspection: normal respiratory effort and respiratory effort not decreased Auscultation: rhonchi Cardio Palpation: no palpable S3 and no palpable S4 Heart sounds: no rubs GI Inspection: Yes normal to inspection Palpation (GI): Soft to palpation Percussion: Yes normal to percussion Auscultation: normal bowel sounds General: Yes no CVA tenderness Back/Spine/Pelvis Back: no CVA tenderness Skin General skin exam: no petechiae and no purpura Neuro General: patient oriented x3 and no focal motor deficits Extrem General: No clubbing and Yes edema Results Reviewed Nephrology Results: Hgb 14.4 g/dl (12.0-16.0) 06/12/23 WBC 7.4 X10*3/uL (4.8-10.8) 06/12/23 Plt Count 249 X10*3/uL (160-400) 06/12/23 Sodium 130 mmol/L (135-145) L 09/05/23 Potassium 3.5 mmol/L (3.3-5.1) 09/05/23 Chloride 97 mmol/L (96-108) 09/05/23 Carbon Dioxide 23 mmol/L (22-29) 09/05/23 BUN 5 mg/dL (9-16) L 09/05/23 Creatinine 0.70 mg/dL (0.5-1.4) 09/05/23 Calcium 9.6 mg/dL (8.4-10.2) 09/05/23 Assessment & Plan Assessment & Plan (1) Hyponatremia: Code(s): E87.1 - Hypo-osmolality and hyponatremia Category: Medical (2) Chronic hyponatremia: Code(s): E87.1 - Hypo-osmolality and hyponatremia Category: Medical Plan . 68 yr old woman with Chronic Asymptomatic Hyponatremia / Hypotonic hyponatremia She has a dilute urine with polyuria - most likely due to polydipsia/ beer potomania TSH was normal; Cortisol normal Plan: Limit hypotonic fluid intake : Cut down on beer Replace soda with Gatorade Total fluid intake should be < 1.5L per 24 hours for now Repeat labs ordere Goal pNa > 133 Orders: Orders Basic Metabolic Panel Today E87.1 - Hypo-osmolality and hyponatremia Coding Level of Care Code Est Pt Level 4 (65429) Diagnoses Hyponatremia E87.1 Chronic hyponatremia E87.1
[2023-11-18 15:25] VITALS: BP 140/68; PULSE 93; O2SAT 98; BMI 22.7
== END 2023-11-18 15:37 | disposition home or self-care (01) ==
PROVIDERS: PCP Internal Medicine; Visit Provider Internal Medicine Hypertension Specialist
DX: E87.1 Hypo-osmolality and hyponatremia (principal)
CPT/HCPCS: 99214

== ENCOUNTER → 2023-11-18 15:21 | Outpatient (BNVA) | payer MEDICARE, OTHER, SELFPAY | PROVIDERS: PCP Internal Medicine; Visit Provider Internal Medicine Hypertension Specialist | DX: E87.1 Hypo-osmolality and hyponatremia (principal) | CPT/HCPCS: 99212 ==

== ENCOUNTER 2023-11-19 10:12 | Outpatient (REF) | payer MEDICARE, OTHER, SELFPAY ==
[2023-11-19 14:24] LABS: Anion Gap 14 (12-20); Blood Urea Nitrogen 5 mg/dL (9-16); Calcium 10.1 mg/dL (8.4-10.2); Carbon Dioxide 24 mmol/L (22-29); Chloride 95 mmol/L (96-108); Estimated Glomerular Filt Rate > 60; Glucose Random 98 mg/dL (60-115); Potassium 3.8 mmol/L (3.3-5.1); Sodium 129 mmol/L (135-145)
== END 2023-11-19 10:13 | disposition home or self-care (01) ==
LOC: HO.HMGCLDS 10:12
PROVIDERS: PCP Internal Medicine; Visit Provider Internal Medicine Hypertension Specialist
DX: E87.1 Hypo-osmolality and hyponatremia (principal)
CPT/HCPCS: 36415; 80048

== ENCOUNTER 2023-11-27 10:52 | Outpatient (REF) | payer MEDICARE, OTHER, SELFPAY ==
--- NOTE | ~2023-11-27 | XR_ITS ---
EXAMINATION: XR ANKLE, LEFT CLINICAL INFORMATION: Pain. COMPARISON: None available. TECHNIQUE: AP, lateral, and mortise views of the left ankle. FINDINGS: Bony alignment and mineralization are normal. The ankle mortise is intact. No fracture, dislocation or right ankle joint effusion is seen. Boehler's angle is normal. There is a moderate plantar calcaneal spur. There is generalized soft tissue swelling. There are soft tissue calcifications in the calf, which may be associated with venous insufficiency. XR/XR ankle LT 2V IMPRESSION: 1. No fracture, dislocation or left ankle joint effusion is seen. 2. There is generalized soft tissue swelling.
== END 2023-11-27 10:53 | disposition home or self-care (01) ==
LOC: HO.HOSX 10:52
PROVIDERS: PCP Internal Medicine; Visit Provider Physical Medicine & Rehabilitation
DX: M22.2X1 Patellofemoral disorders, right knee (principal); S83.8X1A Sprain of other specified parts of right knee, initial encounter; X58.XXXA Exposure to other specified factors, initial encounter; Y93.9 Activity, unspecified; Y92.9 Unspecified place or not applicable; Y99.9 Unspecified external cause status
CPT/HCPCS: 73600; 99212

== ENCOUNTER 2023-11-27 10:52 | Outpatient (AMB) | payer MEDICARE, OTHER, SELFPAY ==
--- NOTE | 2023-11-27 11:22 | MHC.OFFVIS ---
Intake Visit Reasons: OV-Right knee follow up Intake Note: Mildred is a 68 year old female who presents to the office today for a Right knee follow up. Pt has been doing PT and states that made her stronger. Pt states the injection that was given on 08/22/23 gave her mild relief. She mentions that she is able to walk without her cane, however she tends to still have pain. Patient might want to repeat her injection. Allergies No Known Allergies [No Known Allergies*] Allergy (Verified 11/27/23 11:31) Medication List - Last Reconciled 11/27/23 by Melanie Tavera MD alendronate 70 mg PO QWEEK 12 weeks amlodipine 10 mg PO DAILY 90 days atorvastatin 40 mg PO DAILY 90 days calcium citrate 500 mg (2 x 250 mg calcium) PO BID 90 days candesartan 32 mg PO DAILY 90 days cholecalciferol (vitamin D3) 25 mcg PO DAILY 30 days pantoprazole 40 mg PO DAILY HPI Comments Details: Right steroid injection right knee on last visit 08/22/2023. Working diagnosis of patellofemoral pain. X-rays were unremarkable. Patient reports she had immediate relief after the injection. But she was still have intermittent severe pain, depending on her activities. She is walking better without the cane now. Able to go up and down stairs but 1 leg at a time. Also mentions ankle swelling, chronic recurrent, left worse than right. She has follow up scheduled to see her PCP, Endocrinology and Nephrology in the next few months. [facility] Medical History (Updated 11/27/23 @ 11:53 by Melanie Tavera MD) Patellofemoral pain syndrome of right knee Elevated cortisol level Vitamin D deficiency Osteoporosis Hyperparathyroidism Hyponatremia Age related osteoporosis Lipid disorder Hypertension, essential Surgical History Hx of oral surgery H/O kyphoplasty H/O left breast biopsy History of colonoscopy History of right cataract surgery Family History Father Lung cancer Mother CAD (coronary artery disease) Breast cancer Diabetes mellitus Partial blindness Sister Breast cancer Maternal Grandfather Unknown family medical history Maternal Grandmother Unknown family medical history Paternal Grandfather Unknown family medical history Paternal Grandmother Unknown family medical history Maternal Aunt Breast cancer Social History Housing: House Alcohol intake: current Alcohol intake frequency: a few times a week Patient Tobacco Use Status: Former Tobacco user Tobacco use type: Cigarette Cigarette Packs Per Day: 1.5 e-Cigarette/Vaping Use: Currently Using service: No Current occupational status: retired Cognitive needs: No Hearing needs: No Vision needs: No Physical Exam Constitutional: Patient appears to be in no acute distress, well nourished and well developed. MSK: No redness or warmth in right knee. No ligamentous laxity or crepitant. No increased effusion in the joint and no more swelling. Nontender both medial and lateral joint line tenderness. Nontender on right patella. Patellar grind test is positive right. Anterior drawer test is negative. Kami test is negative. Posterior drawer test is negative. Valgus stress test positive right. Left ankle swollen and warm to touch. No redness. No specific focal tenderness along malleoli, Achillis or plantar fascia. No calf tenderness. Strength is 5/5 in all muscle groups tested. No increased tone noted. Neurological: Neurologic examination of the upper and lower extremities was nonfocal with intact sensation, muscle stretch reflexes and without focal motor deficits . Dixon?s negative bilaterally. Babinski was down going bilaterally. Clonus was negative. Gait is non antalgic without loss of balance. Results Reviewed Results Reviewed: Ordering Physician: Hernandez Gonzalez MD Date of Service: 06/12/23 Procedure(s): XR knee RT 4V Accession Number(s): [id number] cc: Hernandez Gonzalez MD~ EXAMINATION: XR KNEE, RIGHT CLINICAL INFORMATION: Injury COMPARISON: None available. TECHNIQUE: Four views of the right knee. FINDINGS: No fracture or joint effusion. Alignment is anatomic. Joint spaces are maintained. Atherosclerotic disease. XR/XR knee RT 4V IMPRESSION: No fracture or dislocation. Assessment & Plan Assessment & Plan (1) Patellofemoral pain syndrome of right knee: Code(s): M22.2X1 - Patellofemoral disorders, right knee Category: Medical (2) Injury of meniscus of right knee: Code(s): S83.8X1A - Sprain of other specified parts of right knee, initial encounter Category: Medical Qualifiers: Encounter type: initial encounter Qualified Code(s): S83.8X1A - Sprain of other specified parts of right knee, initial encounter Plan Recurrent right knee pain, thought to be patellofemoral. Plain x-rays did not even show arthritis. Improved somewhat with steroid injection. Still gets swollen. Positive valgus sign. Would like to rule out any meniscal injury. Patient had undergone adequate conservative management including [PT] without improvement of condition. It would be reasonable to obtain further imaging such as MRI. An MRI would help rule out any serious condition, guide treatment and assess prognosis for recovery. Discussed at we would hold off on further steroid injections until we know the etiology of her knee pain. Chronic recurrent left ankle swelling. Probably had injury in the past. We will send for x-rays today. Assessment and plan discussed with patient, and patient was agreeable. All questions were answered thoroughly. Follow up after MRI. Melanie Tavera MD, BETSY Board Certified, [place] [employer] and Rehabilitation (ABPMR) Board Certified, [place] [employer] Electro[employer]ostic [employer] (ABEM) Orders: Orders XR knee LT 3V Today M25.50 - Pain in unspecified joint MR knee RT wo con Today E87.1 - Hypo-osmolality and hyponatremia, M22.2X1 - Patellofemoral disorders, right knee, S83.271A - Complex tear of lateral meniscus, current injury, right knee, initial encounter, S83.8X1A - Sprain of other specified parts of right knee, initial encounter Coding Level of Care Code Est Pt Level 4 (82218) Diagnoses Patellofemoral pain syndrome of right knee M22.2X1 Injury of meniscus of right knee, initial encounter S83.8X1A Encounter type: initial encounter
== END 2023-11-27 15:18 | disposition home or self-care (01) ==
PROVIDERS: PCP Internal Medicine; Visit Provider Physical Medicine & Rehabilitation
DX: M22.2X1 Patellofemoral disorders, right knee (principal); S83.8X1A Sprain of other specified parts of right knee, initial encounter
CPT/HCPCS: 99214

== ENCOUNTER 2024-01-20 15:31 | Outpatient (AMB) | payer MEDICARE, OTHER, SELFPAY ==
--- NOTE | 2024-01-20 15:39 | MHC.OFFVIS ---
Vital Signs 01/20/24 15:41 Height 5 ft 5.85 in Weight 143 lb 15.39 oz BMI 23.3 BP 138/62 Blood Pressure Location Rt brachial Position Sitting Pulse 90 Pulse Source Pulse Oximeter Intake Visit Reasons: f/u osteoporosis/ Conf Intake Note: Patient present today for Osteoporosis follow up. Programming Director Required: No Accompanied by: Self / Same As Patient Allergies No Known Allergies [No Known Allergies*] Allergy (Verified 01/20/24 15:42) Medication List - Last Reconciled 01/20/24 by Ambrosio Delaney MD alendronate 70 mg PO QWEEK amlodipine 10 mg PO DAILY 90 days atorvastatin 40 mg PO DAILY 90 days calcium citrate 500 mg (2 x 250 mg calcium) PO BID candesartan 32 mg PO DAILY 90 days cholecalciferol (vitamin D3) 25 mcg PO DAILY 30 days pantoprazole 40 mg PO DAILY HPI Comments Details: 68 YO Female who is seen in F/U for Osteoporosis. First diagnosed in 2009. Received treatment in the past with Actonel for just a few months. This caused worsening GERD so it was stopped. She was then switched to Fosamax as of September 2020, and has remained on this with 3 separate 3 month pauses due to dental work. She has tolerated this well. She is currently off the Fosamax due to a recent dental extraction. No history of pathologic fracture or ONJ. Has 0 servings of dietary calcium per day. Takes Calcium supplement 1000 mg daily in divided doses. Takes 2000 IU of Vitamin D daily. Does use a daily PPI. Denies every using anticoagulant, antiepileptic or glucocorticoid medication. Fracture history: Had a compression fracture of the T11 vertebrate, with kyphoplasty 05/2019. Height loss: Reports, but is unable to quantify. [employer]ATOR history: Menarche was age 10. Menses were always regular. . Menopause was margarito 40's. She did not use HRT after. Denies history of Kidney stones: Has a family history of Osteoporosis in her Sister. UTD on dental cleanings and sees dentist every 6 months. Does have a planned dental extraction in April. DXA: 04/27/2021 FINDINGS: AP SPINE L1-L3 (excluding L4): The data of L1-L4 has been changed to exclude the L4 vertebral body, because degenerative changes at this level may cause overestimation of lumbar spine density. Current: BMD 0.880 g/cm2, Z-score -1.2, T-score -2.4, osteopenia, 4.5% decrease from previous, 10.5% decrease from baseline (<5% change is not significant). Prior: BMD 0.921 g/cm2. Baseline: BMD 0.983 g/cm2. LEFT FEMUR, NECK: Current: BMD 0.643 g/cm2, Z-score -1.5, T-score -2.8, osteoporosis. Prior: BMD 0.621 g/cm2. Baseline: BMD 0.700 g/cm2. LEFT FEMUR, TOTAL: Current: BMD 0.707 g/cm2, Z-score -1.3, T-score -2.4, osteopenia, 1.4% increase from previous, 9.7% decrease from baseline (<5% change is not significant). Prior: BMD 0.697 g/cm2. Baseline: BMD 0.783 g/cm2. LEFT FOREARM RADIUS 33%: BMD 0.597 g/cm2, Z-score -1.6, T-score -3.2, osteoporosis. Prior:? Not previously measured. Labs: Laboratory Tests 01/31/22 01/31/22 11:10 11:10 Creatinine 0.72 Estimated GFR > 60 25-OH Vitamin D Total 45.0 PTH Intact 49 Calcium (PTH Intact) 9.5 been on alendronate since 1 yr [facility] Medical History (Updated 11/27/23 @ 11:53 by Melanie Tavera MD) Patellofemoral pain syndrome of right knee Elevated cortisol level Vitamin D deficiency Osteoporosis Hyperparathyroidism Hyponatremia Age related osteoporosis Lipid disorder Hypertension, essential Surgical History Hx of oral surgery H/O kyphoplasty H/O left breast biopsy History of colonoscopy History of right cataract surgery Family History Father Lung cancer Mother CAD (coronary artery disease) Breast cancer Diabetes mellitus Partial blindness Sister Breast cancer Maternal Grandfather Unknown family medical history Maternal Grandmother Unknown family medical history Paternal Grandfather Unknown family medical history Paternal Grandmother Unknown family medical history Maternal Aunt Breast cancer Social History (Reviewed 11/18/23 @ 15:26 by ALINE Mccormick Housing: House Alcohol intake: current Alcohol intake frequency: a few times a week Patient Tobacco Use Status: Former Tobacco user Tobacco use type: Cigarette Cigarette Packs Per Day: 1.5 e-Cigarette/Vaping Use: Currently Using service: No Current occupational status: retired Cognitive needs: No Hearing needs: No Vision needs: No Assessment & Plan Assessment & Plan (1) Age related osteoporosis: Code(s): M81.0 - Age-related osteoporosis without current pathological fracture Category: Medical Plan: This 68-year-old white female with history of osteoporosis with negative secondary workup. There is a history of compression fracture kyphoplasty. She is currently on alendronate 70 mg q.week. DEXA bone density continues to shows moderate to severe osteoporosis with decreases on alendronate Urine NTX is suppressed Plan is to talk to the patient about transitioning to anabolic therapy either with Evenity or Tymlos or Forteo and then transition back to alendronate . After careful discussion with the patient it was decided to try to get approval for Tymlos or Forteo as patient is not able to come into the office to get injections because she has a caregiver. I did have the patient hold the alendronate in anticipation of starting the anabolic Medications: Discontinued alendronate Discontinued Reason: Doctor's Order 70 mg PO QWEEK 12 tabs 1RF M81.0 - Age-related osteoporosis without current pathological fracture Coding Level of Care Code Est Pt Level 3 (09332) Diagnoses Age related osteoporosis M81.0
[2024-01-20 15:41] VITALS: BP 138/62; PULSE 90; BMI 23.3
== END 2024-01-20 16:00 | disposition home or self-care (01) ==
PROVIDERS: PCP Internal Medicine; Visit Provider Internal Medicine Endocrinology, Diabetes & Metabolism
DX: M81.0 Age-related osteoporosis without current pathological fracture (principal)
CPT/HCPCS: 99213

== ENCOUNTER → 2024-01-20 15:31 | Outpatient (BNVA) | payer MEDICARE, OTHER, SELFPAY | PROVIDERS: PCP Internal Medicine; Visit Provider Internal Medicine Endocrinology, Diabetes & Metabolism | DX: M81.0 Age-related osteoporosis without current pathological fracture (principal) | CPT/HCPCS: 99212 ==

== ENCOUNTER 2024-01-26 14:14 | Outpatient (REF) | payer MEDICARE, OTHER, SELFPAY ==
--- NOTE | ~2024-01-26 | MR_ITS ---
EXAMINATION: MR KNEE WITHOUT CONTRAST, RIGHT CLINICAL INFORMATION: Right knee pain and instability. Lateral meniscal tear. COMPARISON: Right knee radiographs dated 06/12/2023. TECHNIQUE: MRI of the knee without contrast was performed using routine sequences on a high-field scanner. FINDINGS: MENISCI: Medial Meniscus: Complex tearing of the meniscal body extending through the posterior horn and root with oblique inner margin and tibial articular surface components to the tear. Medial extrusion of the meniscal body. Mild adjacent soft tissue edema. Small meniscal flap within the medial meniscotibial recess measuring up to 1.2 cm in AP dimension. Lateral Meniscus: Oblique inner margin tear of the meniscal body with a lateral parameniscal cyst measuring up to 0.5 cm. Irregular inner margin fraying/tearing extending through the anterior and posterior horns and roots. LIGAMENTS: Cruciate: Increased T2 signal within the attenuated anterior cruciate ligament which could represent chronic partial tearing versus mucoid degeneration. No edema or evidence of acute injury. Intact posterior cruciate ligament. Collateral: Intact. EXTENSOR MECHANISM: Mild distal quadriceps tendinosis. Intact patellar tendon. Normal patellofemoral alignment. ARTICULAR CARTILAGE/BONE: Patellofemoral Compartment: Lateral patellar facet articular cartilage signal heterogeneity. Central trochlear signal heterogeneity. Tiny marginal osteophytes. Medial Compartment: Weightbearing articular cartilage signal heterogeneity with a small focus of full-thickness loss at the medial femoral condyle measuring up to 0.9 x 0.5 cm. Tiny marginal osteophytes. Lateral Compartment: Full-thickness weightbearing and posterior weightbearing articular cartilage loss with subchondral cystic change and marrow edema. Marginal osteophytes. JOINT FLUID AND BURSAE: [id number] joint effusion. Chondral loose body posterior to the lateral femoral condyle measuring up to 0.2 x 0.9 x 1.3 cm. MR/MR knee RT wo con IMPRESSION: 1. Complex tearing of the medial meniscal body extending through the posterior horn and root with oblique inner margin and tibial articular surface components. Medial extrusion of the meniscal body with a small meniscal flap within the medial meniscotibial recess. 2. Oblique inner margin tear of the lateral meniscal body with a lateral parameniscal cyst measuring up to 0.5 cm. Irregular inner margin fraying/tearing extending through the anterior and posterior horns and roots. 3. Chronic partial tearing versus mucoid degeneration of the anterior cruciate ligament. No evidence of acute ligament injury. 4. Mild distal quadriceps tendinosis. 5. Severe lateral as well as mild medial and patellofemoral compartment osteoarthritis. [id number] joint effusion. Chondral loose body posterior to the lateral femoral condyle measuring up to 1.3 cm. Electronically signed by: Emmanuel Blanchard MD 01/31/2024 12:13 PM EDT
== END 2024-01-26 14:15 | disposition home or self-care (01) ==
LOC: HO.MRI 14:14
PROVIDERS: PCP Internal Medicine; Visit Provider Physical Medicine & Rehabilitation
DX: S83.271A Complex tear of lateral meniscus, current injury, right knee, initial encounter (principal); E87.1 Hypo-osmolality and hyponatremia; M22.2X1 Patellofemoral disorders, right knee; S83.8X1A Sprain of other specified parts of right knee, initial encounter
CPT/HCPCS: 73721

== ENCOUNTER 2024-02-11 13:36 | Outpatient (AMB) | payer MEDICARE, OTHER, SELFPAY ==
--- NOTE | 2024-02-11 13:38 | MHC.PC.OV ---
Vital Signs 02/11/24 13:41 Weight 142 lb 2 oz BP 136/64 Blood Pressure Location Rt brachial Position Sitting Pulse 98 Pulse Source Pulse Oximeter Pulse Oximetry (%) 98 Oxygen Delivery Method Room Air Intake Visit Reasons: 6 Month F/U Allergies No Known Allergies [No Known Allergies*] Allergy (Verified 02/11/24 13:44) Medication List - Last Reconciled 02/11/24 by Hernandez Gonzalez MD abaloparatide (Tymlos) 80 mcg (0.04 mL) subcut DAILY amlodipine 10 mg PO DAILY 90 days atorvastatin 40 mg PO DAILY 90 days calcium citrate 500 mg (2 x 250 mg calcium) PO BID candesartan 32 mg PO DAILY 90 days cholecalciferol (vitamin D3) 25 mcg PO DAILY 30 days pantoprazole 40 mg PO DAILY pen needle, diabetic (BD Dolores 2nd Gen Pen Needle) As directed Tobacco use date assessed: 02/11/24 Fall risk assessment: No Falls in past year Last assessed Fall Risk: 02/11/24 Dental Screening Dental Screen Date: 02/11/24 Did you have a dental visit in the last 12 months?: Yes Did you have a dental problem in the last 6 months where you did not have access to dental care?: No Was dental information given to patient?: Patient has dentist HPI 6 Month F/U HPI Details Patient is 68-year-old female came in today for her regular follow-up visit.? Patient is coming every six-month She lost her July of this year And in November her sister had a stroke, she is feeling tearful She is visiting her sister every other day Having difficulty sleeping at night but do not want to take any sleep aid She has developed tear in her right knee and has orthopedic appointment coming up She has chronic hyponatremia most likely because of alcohol which she continued to drink in moderation She has appointment coming up with Nephrology as well next month Osteoporosis management through endocrinology patient is on Fosamax? Continued to have back pain, manageable at this time Blood pressure is stable, patient is on amlodipine 10 mg and candesartan 32 mg.? Tolerating medication no side effect.? ? Her other medications are atorvastatin for lipid control.? She has appointment in June for physical exam Lab order placed to be done today [facility] Medical History Patellofemoral pain syndrome of right knee Elevated cortisol level Vitamin D deficiency Osteoporosis Hyperparathyroidism Hyponatremia Age related osteoporosis Lipid disorder Hypertension, essential Surgical History Hx of oral surgery H/O kyphoplasty H/O left breast biopsy History of colonoscopy History of right cataract surgery Family History Father Lung cancer Mother CAD (coronary artery disease) Breast cancer Diabetes mellitus Partial blindness Sister Breast cancer Maternal Grandfather Unknown family medical history Maternal Grandmother Unknown family medical history Paternal Grandfather Unknown family medical history Paternal Grandmother Unknown family medical history Maternal Aunt Breast cancer Social History Housing: House Alcohol intake: current Alcohol intake frequency: a few times a week Patient Tobacco Use Status: Former Tobacco user Tobacco use type: Cigarette Cigarette Packs Per Day: 1.5 e-Cigarette/Vaping Use: Currently Using service: No Current occupational status: retired Cognitive needs: No Hearing needs: No Vision needs: No Questionnaire PHQ-9 Over the last 2 weeks, how often have you been bothered by any of the following problems? 1. Little interest or pleasure in doing things: more than half the days 2. Feeling down, depressed, or hopeless: several days 3. Trouble falling or staying asleep, or sleeping too much: more than half the days 4. Feeling tired or having little energy: more than half the days 5. Poor appetite or overeating: not at all 6. Feeling bad about yourself - or that you are a failure or have let yourself or your family down: not at all 7. Trouble concentrating on things, such as reading the newspaper or watching television: not at all 8. Moving or speaking so slowly that other people could have noticed. Or the opposite - being so fidgety or restless that you have been moving around a lot more than usual: not at all 9. Thoughts that you would be better off or of hurting yourself in some way: not at all Total score: 7 Depression Screening Interpretation: Negative Depression Screening Done: Yes 18520 - PHQ-9 Billing: Yes Source: Developed by Drs. Ambrosio LPenny Wilson, Pranav Gonzales and colleagues, with an educational bernie from [employer]. Thrive Questionnaire Date Thrive assessed: 02/11/24 I am a: Patient What is your living situation today?: I have a steady place to live Within the past 12 months, did the food you bought not last and you didn't have the money to get more?: Never true Within the past 12 months, did you worry whether your food would run out before you got money to buy more?: Never true Do you have trouble paying for medicines?: No Do you have trouble getting transportation to medical appointments?: Yes Do you have trouble paying your heating and electricity bill?: No Do you have trouble taking care of your child, family member or friend?: No Do you have trouble with day-to-day activities such as bathing, preparing meals, shopping, managing finances, etc.?: No Are you currently unemployed and looking for a job?: No Are you interested in more education?: No Please select the resources that you would like help with: None Currently or been in a relationship where the following occur: No concerns reported THRIVE Score: 1 AUDIT C Alcohol Use Questionnaire (AUDIT-C) 1. How often do you have a drink containing alcohol?: 4 or more times a week 2. How many drinks containing alcohol do you have on a typical day when you are drinking?: 3 or 4 3. How often do you have six or more drinks on one occasion?: Never Total Score: 5 Score Reviewed/Action Taken: Yes ROSEANNE-7 AMB Questionnaire ROSEANNE-7 Date ROSEANNE - 7 assessed: 02/11/24 Feeling nervous, anxious, or on edge: 3 = Nearly every day Not being able to stop or control worryin = Nearly every day Worrying too much about different things: 0 = Not at all Trouble relaxin = Not at all Being so restless that it is hard to sit still: 0 = Not at all Becoming easily annoyed or irritable: 0 = Not at all Feeling afraid as if something awful might happen: 0 = Not at all Total ROSEANNE-7 score (0-4 normal; 5-9 mild; 10-14 moderate; 15-21 severe): 6 Source: Developed by Penny Mcdaniels, Pranav Gonzales and colleagues, with an educational bernie from [employer]. ROSEANNE-7 Assessment Billing ORSEANNE-7 Assessment Tool: ROSEANNE-7 Assessment 83473 Review of Systems Const Denies chills and Denies fever(s) ENT Denies epistaxis and Denies nasal discharge Card Denies chest pain Resp Denies chest congestion, Denies cough and Denies hemoptysis GI Denies diarrhea and Denies nausea Skin/Breast Denies rash Neuro Reports no additional complaints Psych Reports no additional complaints Endo Reports no additional complaints Physical exam (Primary Care) Vital Signs: Last Vital Signs Pulse 98 02/11/24 13:41 BP 136/64 02/11/24 13:41 Pulse Ox 98 02/11/24 13:41 Oxygen Delivery Method Room Air 02/11/24 13:41 Tobacco/Smoking Status: Tobacco use Status Tobacco use date assessed 02/11/24 02/11/24 13:44 Patient Tobacco Use Status Former Tobacco user 02/11/24 13:39 Tobacco use type Cigarette 02/11/24 13:39 e-Cigarette/Vaping Use Currently Using 02/11/24 13:39 PHQ-9: PHQ-9 Score PHQ-9: Total score 7 02/11/24 13:59 Depression Screening Interpretation: Negative Thrive Assessment: Date of Thrive Assessment Date Thrive assessed 02/11/24 02/11/24 13:44 Currently or been in a relationship where the following occur: No concerns reported Const General: cooperative, comfortable and no acute distress Orientation/consciousness: patient oriented x3 HENMT Head: Yes normocephalic Eyes General: appearance normal, both eyes and all related structures Neck Neck: Yes supple Resp Effort & Inspection: normal respiratory effort, no cough and no stridor Cardio Rhythm: regular rhythm Heart sounds: S1 normal heart sound present and S2 normal heart sound present Back/Spine/Pelvis Other: Prominent kyphosis thoracocervical Skin General skin exam: turgor normal Neuro General: patient oriented x3, tone normal and moves all extremities Extrem Other: Pain right knee with walking Right lower extremity: no edema Left lower extremity: no edema Coding Level of Care Code Est Pt Level 4 (37654) Complex EM visit Add On G2211 Diagnoses Hypertension, essential I10 Lipid disorder E78.9 Age related osteoporosis, unspecified pathological fracture presence M81.0 Presence of current pathological fracture: unspecified Chronic GERD K21.9 Hyponatremia E87.1 Hyperparathyroidism E21.3 Injury of meniscus of right knee, initial encounter S83.8X1A Encounter type: initial encounter Additional Codes ROSEANNE-7 Assessment Billing - ROSEANNE-7 Assessment Tool: ROSEANNE-7 Assessment [id number] ([id number]) Assessment & Plan Assessment & Plan (1) Hypertension, essential: Code(s): I10 - Essential (primary) hypertension Category: Medical (2) Lipid disorder: Code(s): E78.9 - Disorder of lipoprotein metabolism, unspecified Category: Medical (3) Age related osteoporosis: Code(s): M81.0 - Age-related osteoporosis without current pathological fracture Category: Medical Qualifiers: Presence of current pathological fracture: unspecified Qualified Code(s): M81.0 - Age-related osteoporosis without current pathological fracture (4) Chronic GERD: Code(s): K21.9 - Gastro-esophageal reflux disease without esophagitis Category: Medical (5) Hyponatremia: Code(s): E87.1 - Hypo-osmolality and hyponatremia Category: Medical (6) Hyperparathyroidism: Code(s): E21.3 - Hyperparathyroidism, unspecified Category: Medical (7) Injury of meniscus of right knee: Code(s): S83.8X1A - Sprain of other specified parts of right knee, initial encounter Category: Medical Qualifiers: Encounter type: initial encounter Qualified Code(s): S83.8X1A - Sprain of other specified parts of right knee, initial encounter Plan Patient is 68-year-old female came in today for her regular follow-up visit.? Patient is coming every six-month She lost her July of this year And in November her sister had a stroke, she is feeling tearful She is visiting her sister every other day Having difficulty sleeping at night but do not want to take any sleep aid She has developed tear in her right knee and has orthopedic appointment coming up She has chronic hyponatremia most likely because of alcohol which she continued to drink in moderation She has appointment coming up with Nephrology as well next month Osteoporosis management through endocrinology patient is on Fosamax? Continued to have back pain, manageable at this time Blood pressure is stable, patient is on amlodipine 10 mg and candesartan 32 mg.? Tolerating medication no side effect.? ? Her other medications are atorvastatin for lipid control.? She has appointment in June for physical exam Lab order placed to be done today Orders: Orders Comprehensive Met. Panel Today E21.3 - Hyperparathyroidism, unspecified, E78.9 - Disorder of lipoprotein metabolism, unspecified, E87.1 - Hypo-osmolality and hyponatremia, I10 - Essential (primary) hypertension, K21.9 - Gastro-esophageal reflux disease without esophagitis, M81.0 - Age-related osteoporosis without current pathological fracture LDL Cholesterol Direct Today E21.3 - Hyperparathyroidism, unspecified, E78.9 - Disorder of lipoprotein metabolism, unspecified, E87.1 - Hypo-osmolality and hyponatremia, I10 - Essential (primary) hypertension, K21.9 - Gastro-esophageal reflux disease without esophagitis, M81.0 - Age-related osteoporosis without current pathological fracture TSH reflex Free T4 Today E21.3 - Hyperparathyroidism, unspecified, E78.9 - Disorder of lipoprotein metabolism, unspecified, E87.1 - Hypo-osmolality and hyponatremia, I10 - Essential (primary) hypertension, K21.9 - Gastro-esophageal reflux disease without esophagitis, M81.0 - Age-related osteoporosis without current pathological fracture Complete Blood Count Auto Diff Today E21.3 - Hyperparathyroidism, unspecified, E78.9 - Disorder of lipoprotein metabolism, unspecified, E87.1 - Hypo-osmolality and hyponatremia, I10 - Essential (primary) hypertension, K21.9 - Gastro-esophageal reflux disease without esophagitis, M81.0 - Age-related osteoporosis without current pathological fracture Vitamin D 25-OH (D2 and D3) Today E21.3 - Hyperparathyroidism, unspecified, E78.9 - Disorder of lipoprotein metabolism, unspecified, E87.1 - Hypo-osmolality and hyponatremia, I10 - Essential (primary) hypertension, K21.9 - Gastro-esophageal reflux disease without esophagitis, M81.0 - Age-related osteoporosis without current pathological fracture Vitamin B12 Today E21.3 - Hyperparathyroidism, unspecified, E78.9 - Disorder of lipoprotein metabolism, unspecified, E87.1 - Hypo-osmolality and hyponatremia, I10 - Essential (primary) hypertension, K21.9 - Gastro-esophageal reflux disease without esophagitis, M81.0 - Age-related osteoporosis without current pathological fracture
[2024-02-11 13:41] VITALS: BP 136/64; PULSE 98; O2SAT 98
== END 2024-02-11 14:22 | disposition home or self-care (01) ==
PROVIDERS: PCP Internal Medicine; Visit Provider Internal Medicine
DX: I10 Essential (primary) hypertension (principal); E21.3 Hyperparathyroidism, unspecified; E78.9 Disorder of lipoprotein metabolism, unspecified; S83.8X1A Sprain of other specified parts of right knee, initial encounter; M81.0 Age-related osteoporosis without current pathological fracture; K21.9 Gastro-esophageal reflux disease without esophagitis; E87.1 Hypo-osmolality and hyponatremia

== ENCOUNTER → 2024-02-11 13:36 | Outpatient (BNVA) | payer MEDICARE, OTHER, SELFPAY | PROVIDERS: PCP Internal Medicine; Visit Provider Internal Medicine ==

== ENCOUNTER 2024-02-11 13:54 | Outpatient (REF) | payer MEDICARE, OTHER, SELFPAY ==
[2024-02-11 16:42] LABS: MANUAL DIFF FLAG NO
[2024-02-11 16:55] LABS: Basophils Percent Auto 0.5 % (0-2); Eosinophils Percent Auto 0.1 % (0-4); Hemoglobin 13.1 g/dl (12.0-16.0); Imm Gran Abs Auto 0.02 X10*3/uL (0.00-0.03); Imm Gran Pct Auto 0.3 % (0.0-0.4); Lymphocytes Absolute Auto 1.7 X10*3/uL (1.2-4.9); Lymphocytes Percent Auto 21.8 % (20-40); Mean Corpuscular HGB Conc 36.4 g/dl (31.0-35.0); Mean Corpuscular Volume 93.5 fL (80.0-98.0); Mean Platelet Volume 9.6 fL (9.4-12.3); Monocytes Absolute Auto 0.5 X10*3/uL (0.1-1.2); Monocytes Percent Auto 6.6 % (2-11); Neutrophils Absolute Auto 5.4 x10*3/uL (2.0-8.3); Neutrophils Percent Auto 70.7 % (45-73); Platelet Count 258 X10*3/uL (160-400); Red Blood Count 3.85 X10*6/uL (4.20-5.50); Red Cell Distribution Width 13.5 % (11.0-16.0); White Blood Count 7.7 X10*3/uL (4.8-10.8)
[2024-02-11 17:21] LABS: Alanine Aminotransferase 14 U/L (0-31); Albumin Level 4.1 g/dL (3.5-5.0); Alkaline Phosphatase 36 U/L (39-117); Anion Gap 14 (12-20); Aspartate Amino Transferase 26 U/L (5-31); Bilirubin Total 0.6 mg/dL (0.0-1.0); Blood Urea Nitrogen 6 mg/dL (9-16); Calcium 10.3 mg/dL (8.4-10.2); Carbon Dioxide 24 mmol/L (22-29); Chloride 95 mmol/L (96-108); Estimated Glomerular Filt Rate > 60; Glucose Random 98 mg/dL (60-115); Potassium 4.1 mmol/L (3.3-5.1); Sodium 129 mmol/L (135-145); Total Protein 6.8 g/dL (6.5-8.0)
[2024-02-11 17:25] LABS: TSH reflex Free T4 0.76 uIU/mL (0.32-4.0)
[2024-02-11 17:31] LABS: Vitamin B12 273 pg/mL (200-900)
[2024-02-13 07:54] LABS: LDL Cholesterol Direct 64 mg/dL (<100)
[2024-02-16 16:53] LABS: Vitamin D 25-OH, D2 <4 ng/mL; Vitamin D 25-OH, D3 29 ng/mL; Vitamin D 25-OH, Total 29 ng/mL (30-100)
== END 2024-02-11 13:55 | disposition home or self-care (01) ==
LOC: HO.HMGCLDS 13:54
PROVIDERS: PCP Internal Medicine; Visit Provider Internal Medicine
DX: I10 Essential (primary) hypertension (principal); E78.9 Disorder of lipoprotein metabolism, unspecified; M81.0 Age-related osteoporosis without current pathological fracture; K21.9 Gastro-esophageal reflux disease without esophagitis; E87.1 Hypo-osmolality and hyponatremia; E21.3 Hyperparathyroidism, unspecified; S83.8X1A Sprain of other specified parts of right knee, initial encounter; Z79.899 Other long term (current) drug therapy
CPT/HCPCS: 36415; 80053; 82306; 82607; 83721; 84443; 85025; 96127; 99212

== ENCOUNTER 2024-02-17 14:20 | Outpatient (AMB) | payer MEDICARE, OTHER, SELFPAY ==
--- NOTE | 2024-02-17 14:26 | MHC.OFFVIS ---
Intake Visit Reasons: OV-Tear medial meniscus, right knee-MRI review Intake Note: Mildred is a 68 year old female who presents today for an MRI review of her right knee. Patient reports that she fell about 1 year ago and has had pain since, she has been seen with Dr. Tavera who provided a cortisone injection in August of 2023, ordered PT as well as an MRI. Allergies No Known Allergies [No Known Allergies*] Allergy (Verified 02/17/24 14:29) HPI HPI OV-Tear medial meniscus, right knee-MRI review: Details: Mildred is a 68 year old female who presents today for an MRI review of her right knee. Patient reports that she fell about 1 year ago and has had pain since, she has been seen with Dr. Tavera who provided a cortisone injection in August of 2023, ordered PT as well as an MRI. She has been having pain but it is not terrible. She is walking and for the most part feels comfortable. She states she is not interested in surgery. [facility] Medical History Patellofemoral pain syndrome of right knee Elevated cortisol level Vitamin D deficiency Osteoporosis Hyperparathyroidism Hyponatremia Age related osteoporosis Lipid disorder Hypertension, essential Surgical History Hx of oral surgery H/O kyphoplasty H/O left breast biopsy History of colonoscopy History of right cataract surgery Family History Father Lung cancer Mother CAD (coronary artery disease) Breast cancer Diabetes mellitus Partial blindness Sister Breast cancer Maternal Grandfather Unknown family medical history Maternal Grandmother Unknown family medical history Paternal Grandfather Unknown family medical history Paternal Grandmother Unknown family medical history Maternal Aunt Breast cancer Social History Housing: House Alcohol intake: current Alcohol intake frequency: a few times a week Patient Tobacco Use Status: Former Tobacco user Tobacco use type: Cigarette Cigarette Packs Per Day: 1.5 e-Cigarette/Vaping Use: Currently Using service: No Current occupational status: retired Cognitive needs: No Hearing needs: No Vision needs: No Physical Exam Constitutional: Patient appears to be in no acute distress, well nourished and well developed. MSK: No redness or warmth in right knee. No ligamentous laxity or crepitant. No increased effusion in the joint and no more swelling. Nontender both medial and lateral joint line tenderness. Nontender on right patella. Patellar grind test is positive right. Anterior drawer test is negative. Kami test is negative. Posterior drawer test is negative. Valgus stress test positive right. Left ankle swollen and warm to touch. No redness. No specific focal tenderness along malleoli, Achillis or plantar fascia. No calf tenderness. Strength is 5/5 in all muscle groups tested. No increased tone noted. Neurological: Neurologic examination of the upper and lower extremities was nonfocal with intact sensation, muscle stretch reflexes and without focal motor deficits . Dixon?s negative bilaterally. Babinski was down going bilaterally. Clonus was negative. Gait is non antalgic without loss of balance. Extrem Other: There is dull global mild tenderness to palpation. Negative William's. 5-125 degrees of motion. Most of her pain is retropatellar with palpation. Results Reviewed Results Reviewed: IMPRESSION: 1. Complex tearing of the medial meniscal body extending through the posterior horn and root with oblique inner margin and tibial articular surface components. Medial extrusion of the meniscal body with a small meniscal flap within the medial meniscotibial recess. 2. Oblique inner margin tear of the lateral meniscal body with a lateral parameniscal cyst measuring up to 0.5 cm. Irregular inner margin fraying/tearing extending through the anterior and posterior horns and roots. 3. Chronic partial tearing versus mucoid degeneration of the anterior cruciate ligament. No evidence of acute ligament injury. 4. Mild distal quadriceps tendinosis. 5. Severe lateral as well as mild medial and patellofemoral compartment osteoarthritis. [id number] joint effusion. Chondral loose body posterior to the lateral femoral condyle measuring up to 1.3 cm Assessment & Plan Assessment & Plan (1) Arthritis of right knee: Code(s): M17.11 - Unilateral primary osteoarthritis, right knee Category: Medical Plan: This is a 68-year-old woman with osteoarthritis of the right knee. I explained her findings on MRI with her and I do not think a small arthroscopic surgery would benefit her. I would recommend injections and activity as tolerated. She recently got an injection in his not interested in 1 today. If her pain worsens and she feels quality of her life is diminished we can discuss more aggressive treatment options but from a surgical perspective the option is arthroplasty. Coding Level of Care Code Est Pt Level 4 (11419) Diagnoses Arthritis of right knee M17.11
== END 2024-02-17 15:22 | disposition home or self-care (01) ==
LOC: HO.HOS 14:21
PROVIDERS: PCP Internal Medicine; Visit Provider Orthopaedic Surgery
DX: M17.11 Unilateral primary osteoarthritis, right knee (principal)
CPT/HCPCS: 20610; 99214

== ENCOUNTER → 2024-02-17 14:20 | Outpatient (BNVA) | payer MEDICARE, OTHER, SELFPAY | PROVIDERS: PCP Internal Medicine; Visit Provider Orthopaedic Surgery | DX: M17.11 Unilateral primary osteoarthritis, right knee (principal) | CPT/HCPCS: 20610; 99212; J0665; J1100; J2003 ==

== ENCOUNTER 2024-02-24 10:47 | Outpatient (REF) | payer MEDICARE, OTHER, SELFPAY ==
[2024-02-24 14:48] LABS: Influenza A PCR NEGATIVE (Negative); Influenza B PCR NEGATIVE (Negative); Resp Syncy Virus RNA Qual PCR NEGATIVE (Negative); SARS COV2 PCR INHOUSE NEGATIVE (Negative)
== END 2024-02-24 10:48 | disposition home or self-care (01) ==
LOC: HO.LNP 10:47
PROVIDERS: Internal Medicine Hypertension Specialist; PCP Internal Medicine; Visit Provider Registered Nurse
DX: J06.9 Acute upper respiratory infection, unspecified (principal); J30.9 Allergic rhinitis, unspecified; Z87.891 Personal history of nicotine dependence
CPT/HCPCS: 0241U; 87880; 99212

== ENCOUNTER 2024-02-24 10:47 | Outpatient (AMB) | payer MEDICARE, OTHER, SELFPAY ==
--- NOTE | 2024-02-24 11:11 | AM.OFFWIN_ITS ---
Intake Vital Signs 02/24/24 11:12 Height 5 ft 8 in Weight 142 lb BMI 21.6 BP 124/76 Blood Pressure Location Lt brachial Position Sitting Pulse 94 Pulse Source Pulse Oximeter Temp 98.2 F Temp Source Oral Pulse Oximetry (%) 96 Intake Visit Reasons: cough, runny nose, sore throat Intake Note: pt is here for cough, runny nose, and sore throat Patient Tobacco Use Status: Former Tobacco user Allergies No Known Allergies [No Known Allergies*] Allergy (Verified 02/24/24 11:13) Do you need a note to return to daycare/school/sports/work: No HPI cough, runny nose, sore throat HPI Details This note is constructed using voice recognition software. While every effort has been made to ensure accuracy, network control technician errors may have been included. The patient is a 68 year old female who presents to the clinic today with sore throat, runny nose, and dry cough for the last 3 or 4 days without fever, chills, shortness of breath.. [facility] Medical History Patellofemoral pain syndrome of right knee Elevated cortisol level Vitamin D deficiency Osteoporosis Hyperparathyroidism Hyponatremia Age related osteoporosis Lipid disorder Hypertension, essential Surgical History Hx of oral surgery H/O kyphoplasty H/O left breast biopsy History of colonoscopy History of right cataract surgery Family History Father Lung cancer Mother CAD (coronary artery disease) Breast cancer Diabetes mellitus Partial blindness Sister Breast cancer Maternal Grandfather Unknown family medical history Maternal Grandmother Unknown family medical history Paternal Grandfather Unknown family medical history Paternal Grandmother Unknown family medical history Maternal Aunt Breast cancer Social History Housing: House Alcohol intake: current Alcohol intake frequency: a few times a week Patient Tobacco Use Status: Former Tobacco user Tobacco use type: Cigarette Cigarette Packs Per Day: 1.5 e-Cigarette/Vaping Use: Currently Using service: No Current occupational status: retired Cognitive needs: No Hearing needs: No Vision needs: No Review of Systems Const All systems reviewed & are unremarkable except as noted in HPI and below Physical Exam Vital Signs: Last Vital Signs Temp 98.2 F 02/24/24 11:12 Pulse 94 02/24/24 11:12 BP 124/76 02/24/24 11:12 Pulse Ox 96 02/24/24 11:12 BMI result Body Mass Index 21.6 Const General: cooperative, healthy appearing, comfortable and no acute distress Orientation/consciousness: patient oriented x3 Limitations: no limitations HEENT Head: Yes normal to inspection Ears: hearing grossly normal bilaterally, external ears normal and TM abnormal retracted General nose exam: Normal external nose present, No nasal discharge present and Abnormal mucous membranes and turbinates present boggy and pale Face and sinus: Yes normal facial exam and Yes sinuses nontender Mouth: Normal oral and palatal mucosa present and moist mucous membranes Throat: Yes tonsils normal, Yes uvula midline, Yes posterior oropharynx abnormal (Erythema), Yes postnasal drainage and Yes cobblestoning Eyes General: appearance normal, both eyes and all related structures Neck Neck: Yes normal visual inspection Resp Effort & Inspection: normal respiratory effort, able to speak in complete sentences, Actively coughing, no respiratory distress, not tachypneic, no tripod positioning and no use of accessory muscles Auscultation: clear to auscultation bilaterally Cardio Rate: regular rate Rhythm: regular rhythm Heart sounds: normal S1 and S2 Skin General skin exam: no rashes or lesions noted Neuro General: patient oriented x3 Extrem General: Yes normal to inspection and Yes no clubbing, cyanosis or edema Results AMB Rapid Strep AMB Rapid Strep Negative Last Edit by Lee Jennings CMA on 02/24/24 11 :29 Assessment & Plan Assessment & Plan (1) Allergic rhinitis: Code(s): J30.9 - Allergic rhinitis, unspecified Qualifiers: Allergic rhinitis trigger: unspecified Allergic rhinitis seasonality: unspecified Qualified Code(s): J30.9 - Allergic rhinitis, unspecified Plan: Supportive measures encouraged and reviewed. Advised patient to try a Flonase nasal spray and second-generation antihistamine such as Zyrtec, Claritin, Sera or similar. Advised consideration of sinus rinse if needed. Advised patient to follow up with primary care provider with worsening or failure to resolve. Viral swab obtained to rule out Covid based on symptoms. Advised mask wearing while symptomatic and quarantine per current CDC guidelines. Reviewed at home support methods including hydration, humidification, vix vapor rub, sinus rinse. Discussed treatment with antiviral therapy for covid with paxlovid including appropriate use and side effects, and need to start medication within 5 day of symptom onset, preferably within 48 hours of symptom onset. Patient wishes to decline paxlovid. Advised follow up with worsening symptoms such as dyspnea at rest, which would require emergent evaluation. Plan See above for full details and plan. Orders: Orders SARS-CoV2/FLU/RSV Today J06.9 - Acute upper respiratory infection, unspecified AMB Rapid Strep Screen Today Z13.9 - Encounter for screening, unspecified Coding Level of Care Code Est Pt Level 3 (08044) Diagnoses Allergic rhinitis, unspecified seasonality, unspecified trigger J30.9 Allergic rhinitis trigger: unspecified Allergic rhinitis seasonality: unspecified
[2024-02-24 11:12] VITALS: BP 124/76; PULSE 94; TEMP 36.8; O2SAT 96; BMI 21.6
== END 2024-02-24 11:45 | disposition home or self-care (01) ==
PROVIDERS: PCP Internal Medicine; Visit Provider Registered Nurse
DX: Z13.9 Encounter for screening, unspecified (principal); J30.9 Allergic rhinitis, unspecified

== ENCOUNTER 2024-03-16 14:05 | Outpatient (AMB) | payer MEDICARE, OTHER, SELFPAY ==
[2024-03-16 14:06] VITALS: BP 132/60; PULSE 84; O2SAT 98; BMI 21.4
--- NOTE | 2024-03-16 14:06 | HO.NEPHOV ---
Vital Signs 03/16/24 14:06 Height 5 ft 8 in Weight 141 lb BMI 21.4 BP 132/60 Blood Pressure Location Lt brachial Position Sitting Pulse 84 Pulse Source Pulse Oximeter Pulse Oximetry (%) 98 Oxygen Delivery Method Room Air Intake Visit Reasons: 4 mo fu w/ labs/ Conf Resident Inspector Required: No Accompanied by: Self / Same As Patient Allergies No Known Allergies [No Known Allergies*] Allergy (Verified 03/16/24 14:09) HPI Comments Details: 68 yr old woman referred for Hyponatremia in a setting of HTN And osteoporosis Based on EMR, she has chronic asymptomatic hyponatremia Usually pNa is around 131 mmol/L Lowest value was 128 few years ago. SHe has a h/o HTN and currently on Amlodipine and Candesartan Not on any diuretics- especially thiazides She stays on a regular diet h/o Smoking : 1 and 1/2 pack for 40 years. Quit 2- 3 yrs ago. h/o mild COPD. Does not require treatment/inhalers h/o drinking beer - everyday Says she drinks 5- 7 bottles Granda light a week Also drinks 3 + bottles of Pepsi a day , in addition to other fluids- coffee etc She underwent 24 hour urine collection 3 times in 2 years. The volume was 2800, 3000 and 3500 and urine osmolarity was relatively low at 191 05/21/23 Feels ok Drinks about 2 L fluids including Pepsi and Beer 08/20/2023 She lost her on 07/22/2023. She started drinking excessive beer again. 03/16/24 Still drinks about 2 -3 Michelob Ultras, in addition to tea, flavoured water ! [facility] Medical History Patellofemoral pain syndrome of right knee Elevated cortisol level Vitamin D deficiency Osteoporosis Hyperparathyroidism Hyponatremia Age related osteoporosis Lipid disorder Hypertension, essential Surgical History Hx of oral surgery H/O kyphoplasty H/O left breast biopsy History of colonoscopy History of right cataract surgery Family History Father Lung cancer Mother CAD (coronary artery disease) Breast cancer Diabetes mellitus Partial blindness Sister Breast cancer Maternal Grandfather Unknown family medical history Maternal Grandmother Unknown family medical history Paternal Grandfather Unknown family medical history Paternal Grandmother Unknown family medical history Maternal Aunt Breast cancer Social History Housing: House Alcohol intake: current Alcohol intake frequency: a few times a week Patient Tobacco Use Status: Former Tobacco user Tobacco use type: Cigarette Cigarette Packs Per Day: 1.5 e-Cigarette/Vaping Use: Currently Using service: No Current occupational status: retired Cognitive needs: No Hearing needs: No Vision needs: No Physical Exam Vital Signs: Last Vital Signs Pulse 84 03/16/24 14:06 BP 132/60 03/16/24 14:06 Pulse Ox 98 03/16/24 14:06 Oxygen Delivery Method Room Air 03/16/24 14:06 BMI result Body Mass Index 21.4 Comfortable Neck supple no JVD. Lungs entry equal no rales. Heart S1-S2 heard no gallop or rub. Abdomen soft nontender. Neuro alert awake oriented. No asterixis. Extremities no edema. Results Reviewed Nephrology Results: Hgb 13.1 g/dl (12.0-16.0) 02/11/24 WBC 7.7 X10*3/uL (4.8-10.8) 02/11/24 Plt Count 258 X10*3/uL (160-400) 02/11/24 Sodium 129 mmol/L (135-145) L 02/11/24 Potassium 4.1 mmol/L (3.3-5.1) 02/11/24 Chloride 95 mmol/L (96-108) L 02/11/24 Carbon Dioxide 24 mmol/L (22-29) 02/11/24 BUN 6 mg/dL (9-16) L 02/11/24 Creatinine 0.66 mg/dL (0.5-1.4) 02/11/24 Calcium 10.3 mg/dL (8.4-10.2) H 02/11/24 Assessment & Plan Assessment & Plan (1) Hyponatremia: Code(s): E87.1 - Hypo-osmolality and hyponatremia Category: Medical (2) Chronic hyponatremia: Code(s): E87.1 - Hypo-osmolality and hyponatremia Category: Medical Plan . 68 yr old woman with Chronic Asymptomatic Hyponatremia / Hypotonic hyponatremia She has a dilute urine with polyuria - most likely due to polydipsia/ beer potomania TSH was normal; Cortisol normal Plan: Limit hypotonic fluid intake : Cut down and discontinue beer Replace soda with Gatorade Total fluid intake should be < 1.5L per 24 hours for now REcent Na 129 Goal pNa > 133 Coding Level of Care Code Est Pt Level 4 (89282) Diagnoses Hyponatremia E87.1 Chronic hyponatremia E87.1
== END 2024-03-16 14:20 | disposition home or self-care (01) ==
PROVIDERS: PCP Internal Medicine; Visit Provider Internal Medicine Hypertension Specialist
DX: E87.1 Hypo-osmolality and hyponatremia (principal)
CPT/HCPCS: 99214

== ENCOUNTER → 2024-03-16 14:05 | Outpatient (BNVA) | payer MEDICARE, OTHER, SELFPAY | PROVIDERS: PCP Internal Medicine; Visit Provider Internal Medicine Hypertension Specialist | DX: E87.1 Hypo-osmolality and hyponatremia (principal); I10 Essential (primary) hypertension; M81.0 Age-related osteoporosis without current pathological fracture | CPT/HCPCS: 99212 ==

== ENCOUNTER 2024-06-26 13:27 | Outpatient (AMB) | payer MEDICARE, OTHER, SELFPAY ==
[2024-06-26 13:32] VITALS: BP 128/64; PULSE 90; O2SAT 98; BMI 21.8
--- NOTE | 2024-06-26 13:32 | MHC.PC.OV ---
Vital Signs 06/26/24 13:32 Height 5 ft 8 in Weight 143 lb 6 oz BMI 21.8 BP 128/64 Blood Pressure Location Rt brachial Position Sitting Pulse 90 Pulse Source Pulse Oximeter Pulse Oximetry (%) 98 Oxygen Delivery Method Room Air Intake Visit Reasons: Annual PE Allergies No Known Allergies [No Known Allergies*] Allergy (Verified 06/26/24 13:32) Medication List - Last Reconciled 06/26/24 by eHrnandez Gonzalez MD abaloparatide (Tymlos) 80 mcg (0.04 mL) subcut DAILY amlodipine 10 mg PO DAILY 90 days atorvastatin 40 mg PO DAILY 90 days calcium citrate 500 mg (2 x 250 mg calcium) PO BID candesartan 32 mg PO DAILY 90 days cholecalciferol (vitamin D3) 25 mcg PO DAILY 30 days pantoprazole 40 mg PO DAILY pen needle, diabetic (BD Dolores 2nd Gen Pen Needle) As directed Tobacco use date assessed: 06/26/24 Last assessed Fall Risk: 06/26/24 Dental Screening Dental Screen Date: 06/26/24 Did you have a dental visit in the last 12 months?: No Did you have a dental problem in the last 6 months where you did not have access to dental care?: No Was dental information given to patient?: Patient declined HPI Annual PE HPI Details Physical exam appointment - The patient is a 69-year-old female presenting with chronic low back pain. Patient has a history of recurrent compression fraction and kyphosis pain is located all over the back - exacerbated by standing, bending, and shower activities, affecting the quality of life. - Previous medication with tramadol was ineffective, and there is hesitancy in commencing oxycodone therapy due to potential side effects. - Additionally, the patient has osteoarthritis in the knee with meniscal tears, previously treated with a corticosteroid injection, which was ineffective. - Chronic hyponatremia is noted, possibly due to alcohol intake, with sodium levels historically at or below 130 meq/L. 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 - Drives frequently to visit the sister in a long-term. Patient Instructions - Discuss potential benefits and side effects of oxycodone, including risks like drowsiness and constipation. - Start with half a tablet of oxycodone at home to assess tolerability. - Avoid alcohol consumption in conjunction with oxycodone to prevent additive sedative effects. - Wear a knee brace for stabilization when needed. - Schedule follow-up with the transmission technician as planned. Review of Systems - Gastrointestinal: Denies current constipation though advised of potential risk. - Safety/Driving: Reports concerns about drowsiness and driving while on oxycodone. - General: No fever no chills - Neurological: No headaches no dizziness - Ear nose throat: No sore throat no hearing difficulty no ear pain - Cardiovascular: No syncope, no chest pain, no palpitations - Endocrine: No polyuria polydipsia no heat intolerance - Genitourinary: No dysuria - Skin: No new complaints Physical Exam General: Cooperative, healthy appearing, comfortable, no acute distress Orientation: Patient oriented x3 Limitations: Due to back pain Head: Normal to inspection Ears: Within normal limit visually Nose: Normal external nose present Face and sinus: Normal facial exam Eyes: Appearance normal, extraocular movement intact pupils reactive Neck: Normal visual inspection and supple Respiratory: Normal respiratory effort and able to speak in complete sentences. Clear to auscultation, no stridor Back: Prominent kyphosis present Breast exam declined by the patient Cardiovascular: S1 and S2 regular in rate and rhythm GI: Normal to inspection. Soft to palpation and nontender Skin: Turgor normal, no acute findings Neuro: Patient oriented x3, motor sensory intact, balance intact, tandem failed Extremities: No edema, osteoarthritis present, knee brace recommended for stability, uses a cane for support [facility] Medical History Patellofemoral pain syndrome of right knee Elevated cortisol level Vitamin D deficiency Osteoporosis Hyperparathyroidism Hyponatremia Age related osteoporosis Lipid disorder Hypertension, essential Surgical History Hx of oral surgery H/O kyphoplasty H/O left breast biopsy History of colonoscopy History of right cataract surgery Family History Father Lung cancer Mother CAD (coronary artery disease) Breast cancer Diabetes mellitus Partial blindness Sister Breast cancer Maternal Grandfather Unknown family medical history Maternal Grandmother Unknown family medical history Paternal Grandfather Unknown family medical history Paternal Grandmother Unknown family medical history Maternal Aunt Breast cancer Social History Housing: House Alcohol intake: current Alcohol intake frequency: a few times a week Patient Tobacco Use Status: Former Tobacco user Tobacco use type: Cigarette Cigarette Packs Per Day: 1.5 e-Cigarette/Vaping Use: Currently Using service: No Current occupational status: retired Cognitive needs: No Hearing needs: No Vision needs: No Questionnaire PHQ-9 Over the last 2 weeks, how often have you been bothered by any of the following problems? 1. Little interest or pleasure in doing things: several days 2. Feeling down, depressed, or hopeless: several days 3. Trouble falling or staying asleep, or sleeping too much: several days 4. Feeling tired or having little energy: several days 5. Poor appetite or overeating: not at all 6. Feeling bad about yourself - or that you are a failure or have let yourself or your family down: not at all 7. Trouble concentrating on things, such as reading the newspaper or watching television: not at all 8. Moving or speaking so slowly that other people could have noticed. Or the opposite - being so fidgety or restless that you have been moving around a lot more than usual: not at all 9. Thoughts that you would be better off or of hurting yourself in some way: not at all Total score: 4 Depression Screening Interpretation: Negative Depression Screening Done: Yes [id number] - PHQ-9 Billing: Yes Source: Developed by Drs. Ambrosio Paulino, Penny Guerra, Pranav Gonzales and colleagues, with an educational bernie from [employer]. Thrive Questionnaire Date Thrive assessed: 06/26/24 I am a: Patient What is your living situation today?: I have a steady place to live Within the past 12 months, did the food you bought not last and you didn't have the money to get more?: Never true Within the past 12 months, did you worry whether your food would run out before you got money to buy more?: Never true Do you have trouble paying for medicines?: No Do you have trouble getting transportation to medical appointments?: No Do you have trouble paying your heating and electricity bill?: No Do you have trouble taking care of your child, family member or friend?: No Do you have trouble with day-to-day activities such as bathing, preparing meals, shopping, managing finances, etc.?: No Are you currently unemployed and looking for a job?: No Are you interested in more education?: No Please select the resources that you would like help with: None Currently or been in a relationship where the following occur: No concerns reported THRIVE Score: 0 AUDIT C Alcohol Use Questionnaire (AUDIT-C) 1. How often do you have a drink containing alcohol?: 4 or more times a week 2. How many drinks containing alcohol do you have on a typical day when you are drinking?: 1 or 2 3. How often do you have six or more drinks on one occasion?: Weekly Total Score: 7 Score Reviewed/Action Taken: Yes (Toxic effects of alcohol discussed) ROSEANNE-7 AMB Questionnaire ROSEANNE-7 Date ROSEANNE - 7 assessed: 06/26/24 Feeling nervous, anxious, or on edge: 2 = More than half the days Not being able to stop or control worryin = Not at all Worrying too much about different things: 1 = Several days Trouble relaxin = Not at all Being so restless that it is hard to sit still: 0 = Not at all Becoming easily annoyed or irritable: 0 = Not at all Feeling afraid as if something awful might happen: 0 = Not at all Total ROSEANNE-7 score (0-4 normal; 5-9 mild; 10-14 moderate; 15-21 severe): 3 Source: Developed by Drs. Ambrosio Paulino, Penny Guerra, Pranav Gonzales and colleagues, with an educational bernie from [employer]. ROSEANNE-7 Assessment Billing ROSEANNE-7 Assessment Tool: ROSEANNE-7 Assessment 38587 Physical exam (Primary Care) Vital Signs: Last Vital Signs Pulse 90 06/26/24 13:32 BP 128/64 06/26/24 13:32 Pulse Ox 98 06/26/24 13:32 Oxygen Delivery Method Room Air 06/26/24 13:32 BMI result Body Mass Index 21.8 Tobacco/Smoking Status: Tobacco use Status Tobacco use date assessed 06/26/24 06/26/24 13:35 Patient Tobacco Use Status Former Tobacco user 06/26/24 13:35 Tobacco use type Cigarette 06/26/24 13:35 e-Cigarette/Vaping Use Currently Using 06/26/24 13:35 PHQ-9: PHQ-9 Score PHQ-9: Total score 4 06/26/24 13:56 Depression Screening Interpretation: Negative Thrive Assessment: Date of Thrive Assessment Date Thrive assessed 06/26/24 06/26/24 13:35 Currently or been in a relationship where the following occur: No concerns reported Coding Level of Care Code Est Pt Level 3 (90202) Est Pt Prev Care >65y(60086) Diagnoses Encounter for general adult medical examination with abnormal findings Z00.01 Pain management R52 Hypertension, essential I10 Lipid disorder E78.9 Age related osteoporosis, unspecified pathological fracture presence M81.0 Presence of current pathological fracture: unspecified Chronic GERD K21.9 Vitamin D deficiency E55.9 Hyponatremia E87.1 H/O kyphoplasty Z98.890 Alcoholism F10.20 Additional Codes ROSEANNE-7 Assessment Billing - ROSEANNE-7 Assessment Tool: ROSEANNE-7 Assessment 07009 ([id number]) PHQ-9 - 29695 - PHQ-9 Billing: Yes ([id number]) Assessment & Plan Assessment & Plan (1) Encounter for general adult medical examination with abnormal findings: Code(s): Z00.01 - Encounter for general adult medical examination with abnormal findings Category: Medical (2) Pain management: Code(s): R52 - Pain, unspecified Category: Medical (3) Hypertension, essential: Code(s): I10 - Essential (primary) hypertension Category: Medical (4) Lipid disorder: Code(s): E78.9 - Disorder of lipoprotein metabolism, unspecified Category: Medical (5) Age related osteoporosis: Code(s): M81.0 - Age-related osteoporosis without current pathological fracture Category: Medical Qualifiers: Presence of current pathological fracture: unspecified Qualified Code(s): M81.0 - Age-related osteoporosis without current pathological fracture (6) Chronic GERD: Code(s): K21.9 - Gastro-esophageal reflux disease without esophagitis Category: Medical (7) Vitamin D deficiency: Code(s): E55.9 - Vitamin D deficiency, unspecified Category: Medical (8) Hyponatremia: Code(s): E87.1 - Hypo-osmolality and hyponatremia Category: Medical (9) H/O kyphoplasty: Code(s): Z98.890 - Other specified postprocedural states Category: Surgical (10) Alcoholism: Code(s): F10.20 - Alcohol dependence, uncomplicated Category: Medical Plan Physical exam appointment - The patient is a 69-year-old female presenting with chronic low back pain. Patient has a history of recurrent compression fraction and kyphosis pain is located all over the back - exacerbated by standing, bending, and shower activities, affecting the quality of life. - Previous medication with tramadol was ineffective, and there is hesitancy in commencing oxycodone therapy due to potential side effects. - Additionally, the patient has osteoarthritis in the knee with meniscal tears, previously treated with a corticosteroid injection, which was ineffective. - Chronic hyponatremia is noted, possibly due to alcohol intake, with sodium levels historically at or below 130 meq/L. 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 - Drives frequently to visit the sister in a long-term. Patient Instructions - Discuss potential benefits and side effects of oxycodone, including risks like drowsiness and constipation. - Start with half a tablet of oxycodone at home to assess tolerability. - Avoid alcohol consumption in conjunction with oxycodone to prevent additive sedative effects. - Wear a knee brace for stabilization when needed. - Schedule follow-up with the transmission technician as planned. Orders: Orders Complete Blood Count Auto Diff Today E55.9 - Vitamin D deficiency, unspecified, E78.9 - Disorder of lipoprotein metabolism, unspecified, E87.1 - Hypo-osmolality and hyponatremia, F10.20 - Alcohol dependence, uncomplicated, I10 - Essential (primary) hypertension, K21.9 - Gastro-esophageal reflux disease without esophagitis, M81.0 - Age-related osteoporosis without current pathological fracture, Z00.01 - Encounter for general adult medical examination with abnormal findings, Z98.890 - Other specified postprocedural states Comprehensive Met. Panel Today E55.9 - Vitamin D deficiency, unspecified, E78.9 - Disorder of lipoprotein metabolism, unspecified, E87.1 - Hypo-osmolality and hyponatremia, F10.20 - Alcohol dependence, uncomplicated, I10 - Essential (primary) hypertension, K21.9 - Gastro-esophageal reflux disease without esophagitis, M81.0 - Age-related osteoporosis without current pathological fracture, Z00.01 - Encounter for general adult medical examination with abnormal findings, Z98.890 - Other specified postprocedural states LDL Cholesterol Direct Today E55.9 - Vitamin D deficiency, unspecified, E78.9 - Disorder of lipoprotein metabolism, unspecified, E87.1 - Hypo-osmolality and hyponatremia, F10.20 - Alcohol dependence, uncomplicated, I10 - Essential (primary) hypertension, K21.9 - Gastro-esophageal reflux disease without esophagitis, M81.0 - Age-related osteoporosis without current pathological fracture, Z00.01 - Encounter for general adult medical examination with abnormal findings, Z98.890 - Other specified postprocedural states TSH reflex Free T4 Today E55.9 - Vitamin D deficiency, unspecified, E78.9 - Disorder of lipoprotein metabolism, unspecified, E87.1 - Hypo-osmolality and hyponatremia, F10.20 - Alcohol dependence, uncomplicated, I10 - Essential (primary) hypertension, K21.9 - Gastro-esophageal reflux disease without esophagitis, M81.0 - Age-related osteoporosis without current pathological fracture, Z00.01 - Encounter for general adult medical examination with abnormal findings, Z98.890 - Other specified postprocedural states Vitamin B12 Today E55.9 - Vitamin D deficiency, unspecified, E78.9 - Disorder of lipoprotein metabolism, unspecified, E87.1 - Hypo-osmolality and hyponatremia, F10.20 - Alcohol dependence, uncomplicated, I10 - Essential (primary) hypertension, K21.9 - Gastro-esophageal reflux disease without esophagitis, M81.0 - Age-related osteoporosis without current pathological fracture, Z00.01 - Encounter for general adult medical examination with abnormal findings, Z98.890 - Other specified postprocedural states Vitamin D 25-OH (D2 and D3) Today E55.9 - Vitamin D deficiency, unspecified, E78.9 - Disorder of lipoprotein metabolism, unspecified, E87.1 - Hypo-osmolality and hyponatremia, F10.20 - Alcohol dependence, uncomplicated, I10 - Essential (primary) hypertension, K21.9 - Gastro-esophageal reflux disease without esophagitis, M81.0 - Age-related osteoporosis without current pathological fracture, Z00.01 - Encounter for general adult medical examination with abnormal findings, Z98.890 - Other specified postprocedural states Medications: New oxycodone Partial Fill upon patient request. 5 mg PO BID 7 days PRN 14 tabs 0RF pain
== END 2024-06-26 13:58 | disposition home or self-care (01) ==
PROVIDERS: PCP Internal Medicine; Visit Provider Internal Medicine
DX: Z00.01 Encounter for general adult medical examination with abnormal findings (principal); R52 Pain, unspecified; I10 Essential (primary) hypertension; F10.20 Alcohol dependence, uncomplicated; E78.9 Disorder of lipoprotein metabolism, unspecified; M81.0 Age-related osteoporosis without current pathological fracture; K21.9 Gastro-esophageal reflux disease without esophagitis; E55.9 Vitamin D deficiency, unspecified; E87.1 Hypo-osmolality and hyponatremia; Z98.890 Other specified postprocedural states

== ENCOUNTER 2024-06-26 13:27 | Outpatient (REF) | payer MEDICARE, OTHER, SELFPAY ==
[2024-06-26 16:18] LABS: MANUAL DIFF FLAG NO
[2024-06-26 16:50] LABS: Alanine Aminotransferase 18 U/L (0-31); Alkaline Phosphatase 45 U/L (39-117); Anion Gap 13 (12-20); Aspartate Amino Transferase 27 U/L (5-31); Bilirubin Total 0.6 mg/dL (0.0-1.0); Blood Urea Nitrogen 9 mg/dL (9-16); Calcium 9.3 mg/dL (8.4-10.2); Carbon Dioxide 24 mmol/L (22-29); Chloride 97 mmol/L (96-108); Estimated Glomerular Filt Rate > 60; Glucose Random 96 mg/dL (60-115); Potassium 4.1 mmol/L (3.3-5.1); Sodium 130 mmol/L (135-145); Total Protein 7.4 g/dL (6.5-8.0)
[2024-06-26 17:04] LABS: Vitamin B12 234 pg/mL (200-900)
[2024-06-26 17:08] LABS: TSH reflex Free T4 0.87 uIU/mL (0.32-4.0)
[2024-06-26 18:07] LABS: Basophils Percent Auto 0.6 % (0-2); Eosinophils Percent Auto 0.4 % (0-4); Hemoglobin 12.7 g/dl (12.0-16.0); Imm Gran Abs Auto 0.02 X10*3/uL (0.00-0.03); Imm Gran Pct Auto 0.3 % (0.0-0.4); Lymphocytes Absolute Auto 1.8 X10*3/uL (1.2-4.9); Lymphocytes Percent Auto 25.5 % (20-40); Mean Corpuscular HGB Conc 35.3 g/dl (31.0-35.0); Mean Corpuscular Volume 93.5 fL (80.0-98.0); Mean Platelet Volume 9.8 fL (9.4-12.3); Monocytes Absolute Auto 0.6 X10*3/uL (0.1-1.2); Monocytes Percent Auto 8.3 % (2-11); Neutrophils Absolute Auto 4.7 x10*3/uL (2.0-8.3); Neutrophils Percent Auto 64.9 % (45-73); Platelet Count 248 X10*3/uL (160-400); Red Blood Count 3.85 X10*6/uL (4.20-5.50); Red Cell Distribution Width 13.9 % (11.0-16.0); White Blood Count 7.2 X10*3/uL (4.8-10.8)
[2024-06-27 10:44] LABS: LDL Cholesterol Direct 78 mg/dL (<100)
[2024-07-02 22:24] LABS: Vitamin D 25-OH, D2 <4 ng/mL; Vitamin D 25-OH, D3 32 ng/mL; Vitamin D 25-OH, Total 32 ng/mL (30-100)
== END 2024-06-26 13:28 | disposition home or self-care (01) ==
LOC: HO.HMGCLDS 13:27
PROVIDERS: PCP Internal Medicine; Visit Provider Internal Medicine
DX: Z00.01 Encounter for general adult medical examination with abnormal findings (principal); I10 Essential (primary) hypertension; E78.9 Disorder of lipoprotein metabolism, unspecified; M81.0 Age-related osteoporosis without current pathological fracture; K21.9 Gastro-esophageal reflux disease without esophagitis; E55.9 Vitamin D deficiency, unspecified; E87.1 Hypo-osmolality and hyponatremia; Z98.890 Other specified postprocedural states; F10.20 Alcohol dependence, uncomplicated; R52 Pain, unspecified
CPT/HCPCS: 36415; 80053; 82306; 82607; 83721; 84443; 85025; 96127; 99212; 99397

== ENCOUNTER 2024-07-13 15:03 | Outpatient (AMB) | payer MEDICARE, OTHER, SELFPAY ==
[2024-07-13 15:18] VITALS: BP 160/70; PULSE 94; O2SAT 97; BMI 21.7
--- NOTE | 2024-07-13 15:18 | HO.NEPHOV ---
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 Accompanied by: Self / Same As Patient Allergies No Known Allergies [No Known Allergies*] Allergy (Verified 07/13/24 15:22) Medication List - Last Reconciled 07/13/24 by Mario Kaufman MD abaloparatide (Tymlos) 80 mcg (0.04 mL) subcut DAILY amlodipine 10 mg PO DAILY 90 days atorvastatin 40 mg PO DAILY 90 days calcium citrate 500 mg (2 x 250 mg calcium) PO BID candesartan 32 mg PO DAILY 90 days cholecalciferol (vitamin D3) 25 mcg PO DAILY 30 days oxycodone 5 mg PO BID PRN 7 days pantoprazole 40 mg PO DAILY pen needle, diabetic USE DIRECTED HPI Comments Details: 68 yr old woman referred for Hyponatremia in a setting of HTN And osteoporosis Based on EMR, she has chronic asymptomatic hyponatremia Usually pNa is around 131 mmol/L Lowest value was 128 few years ago. SHe has a h/o HTN and currently on Amlodipine and Candesartan Not on any diuretics- especially thiazides She stays on a regular diet h/o Smoking : 1 and 1/2 pack for 40 years. Quit 2- 3 yrs ago. h/o mild COPD. Does not require treatment/inhalers h/o drinking beer - everyday Says she drinks 5- 7 bottles Granda light a week Also drinks 3 + bottles of Pepsi a day , in addition to other fluids- coffee etc She underwent 24 hour urine collection 3 times in 2 years. The volume was 2800, 3000 and 3500 and urine osmolarity was relatively low at 191 05/21/23 Feels ok Drinks about 2 L fluids including Pepsi and Beer 08/20/2023 She lost her on 07/22/2023. She started drinking excessive beer again. 03/16/24 Still drinks about 2 -3 Michelob Ultras, in addition to tea, flavoured water ! [facility] Medical History Patellofemoral pain syndrome of right knee Elevated cortisol level Vitamin D deficiency Osteoporosis Hyperparathyroidism Hyponatremia Age related osteoporosis Lipid disorder Hypertension, essential Surgical History Hx of oral surgery H/O kyphoplasty H/O left breast biopsy History of colonoscopy History of right cataract surgery Family History Father Lung cancer Mother CAD (coronary artery disease) Breast cancer Diabetes mellitus Partial blindness Sister Breast cancer Maternal Grandfather Unknown family medical history Maternal Grandmother Unknown family medical history Paternal Grandfather Unknown family medical history Paternal Grandmother Unknown family medical history Maternal Aunt Breast cancer Social History Housing: House Alcohol intake: current Alcohol intake frequency: a few times a week Patient Tobacco Use Status: Former Tobacco user Tobacco use type: Cigarette Cigarette Packs Per Day: 1.5 e-Cigarette/Vaping Use: Currently Using service: No Current occupational status: retired Cognitive needs: No Hearing needs: No Vision needs: No Physical Exam Vital Signs: Last Vital Signs Pulse 94 07/13/24 15:18 BP 160/70 H 07/13/24 15:18 Pulse Ox 97 07/13/24 15:18 Oxygen Delivery Method Room Air 07/13/24 15:18 BMI result Body Mass Index 21.7 Comfortable Neck supple no JVD. Lungs entry equal no rales. Heart S1-S2 heard no gallop or rub. Abdomen soft nontender. Neuro alert awake oriented. No asterixis. Extremities no edema. Results Reviewed Nephrology Results: Hgb 12.7 g/dl (12.0-16.0) 06/26/24 WBC 7.2 X10*3/uL (4.8-10.8) 06/26/24 Plt Count 248 X10*3/uL (160-400) 06/26/24 Sodium 130 mmol/L (135-145) L 06/26/24 Potassium 4.1 mmol/L (3.3-5.1) 06/26/24 Chloride 97 mmol/L (96-108) 06/26/24 Carbon Dioxide 24 mmol/L (22-29) 06/26/24 BUN 9 mg/dL (9-16) 06/26/24 Creatinine 0.64 mg/dL (0.5-1.4) 06/26/24 Calcium 9.3 mg/dL (8.4-10.2) 06/26/24 Assessment & Plan Assessment & Plan (1) Hyponatremia: Code(s): E87.1 - Hypo-osmolality and hyponatremia Category: Medical (2) Chronic hyponatremia: Code(s): E87.1 - Hypo-osmolality and hyponatremia Category: Medical Plan . 68 yr old woman with Chronic Asymptomatic Hyponatremia / Hypotonic hyponatremia She has a dilute urine with polyuria - most likely due to polydipsia/ beer potomania TSH was normal; Cortisol normal Plan: Limit hypotonic fluid intake : Cut down and discontinue beer Replace soda with Gatorade Total fluid intake should be < 1.5L per 24 hours for now REcent Na 130 Goal pNa > 133 HTN BP was elevated initially Repeat was better Home BP has been better Watch BP for now Orders: Orders Basic Metabolic Panel 4 Months E87.1 - Hypo-osmolality and hyponatremia Coding Level of Care Code Est Pt Level 4 (62416) Diagnoses Hyponatremia E87.1 Chronic hyponatremia E87.1
[2024-07-13 15:27] VITALS: BP 144/78
== END 2024-07-13 15:31 | disposition home or self-care (01) ==
LOC: HO.HKA 15:04
PROVIDERS: PCP Internal Medicine; Visit Provider Internal Medicine Hypertension Specialist
DX: E87.1 Hypo-osmolality and hyponatremia (principal)
CPT/HCPCS: 99214

== ENCOUNTER → 2024-07-13 15:03 | Outpatient (BNVA) | payer MEDICARE, OTHER, SELFPAY | PROVIDERS: PCP Internal Medicine; Visit Provider Internal Medicine Hypertension Specialist | DX: E87.1 Hypo-osmolality and hyponatremia (principal); I10 Essential (primary) hypertension; M81.0 Age-related osteoporosis without current pathological fracture; Z79.899 Other long term (current) drug therapy | CPT/HCPCS: 99212 ==

== ENCOUNTER 2024-07-14 14:02 | Outpatient (REF) | payer MEDICARE, OTHER, SELFPAY | END 2024-07-14 14:03 | disposition home or self-care (01) | LOC: HO.MAMMO 14:02 | PROVIDERS: PCP Internal Medicine; Visit Provider Internal Medicine | DX: Z12.31 Encounter for screening mammogram for malignant neoplasm of breast (principal) | CPT/HCPCS: 77063; 77067 ==

== ENCOUNTER → 2024-07-14 14:30 | Outpatient (BNV) | payer MEDICARE, OTHER, SELFPAY | PROVIDERS: PCP Internal Medicine; Visit Provider Internal Medicine | DX: Z12.31 Encounter for screening mammogram for malignant neoplasm of breast (principal) | CPT/HCPCS: 77063; 77067 ==

== ENCOUNTER 2024-07-20 14:45 | Outpatient (AMB) | payer MEDICARE, OTHER, SELFPAY ==
--- NOTE | 2024-07-20 15:00 | MHC.OFFVIS ---
Vital Signs 07/20/24 15:03 Height 5 ft 5.08 in Weight 141 lb 15.643 oz BMI 23.6 BP 150/68 H Blood Pressure Location Rt brachial Position Sitting Pulse 92 Pulse Source Pulse Oximeter Pulse Oximetry (%) 99 Oxygen Delivery Method Room Air Intake Visit Reasons: Osteoporosis Intake Note: Patient present today for Osteoporosis follow up. Sas Administrator Required: No Accompanied by: Self / Same As Patient Allergies oxycodone Adverse Reaction (Unknown, Verified 07/20/24 15:04) Dizziness, upset GI Medication List - Last Reconciled 07/20/24 by Ambrosio Delaney MD abaloparatide (Tymlos) 80 mcg (0.04 mL) subcut DAILY amlodipine 10 mg PO DAILY 90 days atorvastatin 40 mg PO DAILY 90 days calcium citrate 500 mg (2 x 250 mg calcium) PO BID candesartan 32 mg PO DAILY 90 days cholecalciferol (vitamin D3) 25 mcg PO DAILY 30 days oxycodone 5 mg PO BID PRN 7 days pantoprazole 40 mg PO DAILY pen needle, diabetic USE DIRECTED HPI Comments Details: 69 YO Female who is seen in F/U for Osteoporosis. First diagnosed in 2009. Received treatment in the past with Actonel for just a few months. This caused worsening GERD so it was stopped. She was then switched to Fosamax as of September 2020, and has remained on this with 3 separate 3 month pauses due to dental work. She has tolerated this well. She is currently off the Fosamax due to a recent dental extraction. No history of pathologic fracture or ONJ. Has 0 servings of dietary calcium per day. Takes Calcium supplement 1000 mg daily in divided doses. Takes 2000 IU of Vitamin D daily. Does use a daily PPI. Denies every using anticoagulant, antiepileptic or glucocorticoid medication. Fracture history: Had a compression fracture of the T11 vertebrate, with kyphoplasty 05/2019. Height loss: Reports, but is unable to quantify. DIRECTOR SKILLS history: Menarche was age 10. Menses were always regular. . Menopause was margarito 40's. She did not use HRT after. Denies history of Kidney stones: Has a family history of Osteoporosis in her Sister. UTD on dental cleanings and sees dentist every 6 months. Does have a planned dental extraction in April. DXA: 04/27/2021 FINDINGS: AP SPINE L1-L3 (excluding L4): The data of L1-L4 has been changed to exclude the L4 vertebral body, because degenerative changes at this level may cause overestimation of lumbar spine density. Current: BMD 0.880 g/cm2, Z-score -1.2, T-score -2.4, osteopenia, 4.5% decrease from previous, 10.5% decrease from baseline (<5% change is not significant). Prior: BMD 0.921 g/cm2. Baseline: BMD 0.983 g/cm2. LEFT FEMUR, NECK: Current: BMD 0.643 g/cm2, Z-score -1.5, T-score -2.8, osteoporosis. Prior: BMD 0.621 g/cm2. Baseline: BMD 0.700 g/cm2. LEFT FEMUR, TOTAL: Current: BMD 0.707 g/cm2, Z-score -1.3, T-score -2.4, osteopenia, 1.4% increase from previous, 9.7% decrease from baseline (<5% change is not significant). Prior: BMD 0.697 g/cm2. Baseline: BMD 0.783 g/cm2. LEFT FOREARM RADIUS 33%: BMD 0.597 g/cm2, Z-score -1.6, T-score -3.2, osteoporosis. Prior:? Not previously measured. Labs: Laboratory Tests 01/31/22 01/31/22 11:10 11:10 Creatinine 0.72 Estimated GFR > 60 25-OH Vitamin D Total 45.0 PTH Intact 49 Calcium (PTH Intact) 9.5 Had been on alendronate since 1 yr . Now on Tymlos since 04/2024. Tolerating Tymlos nicely. No fracture since last visit The patient is a 69-year-old female presenting for follow-up regarding osteoporosis management. She is currently on Tymlos, which was started approximately in April of the previous year. While she experiences mild itchiness with the medication, there are no further significant side effects such as dizziness. She reports stability in her symptoms with no new fractures since the last visit and manages her condition effectively. Additionally, she has noted mild knee and back pain, although these have not escalated. The patient's engagement in her treatment plan, including maintaining consistency with Tymlos, is noteworthy, facilitating ongoing management without major issues. [facility] Medical History Patellofemoral pain syndrome of right knee Elevated cortisol level Vitamin D deficiency Osteoporosis Hyperparathyroidism Hyponatremia Age related osteoporosis Lipid disorder Hypertension, essential Surgical History Hx of oral surgery H/O kyphoplasty H/O left breast biopsy History of colonoscopy History of right cataract surgery Family History Father Lung cancer Mother CAD (coronary artery disease) Breast cancer Diabetes mellitus Partial blindness Sister Breast cancer Maternal Grandfather Unknown family medical history Maternal Grandmother Unknown family medical history Paternal Grandfather Unknown family medical history Paternal Grandmother Unknown family medical history Maternal Aunt Breast cancer Social History Housing: House Alcohol intake: current Alcohol intake frequency: a few times a week Patient Tobacco Use Status: Former Tobacco user Tobacco use type: Cigarette Cigarette Packs Per Day: 1.5 e-Cigarette/Vaping Use: Currently Using service: No Current occupational status: retired Cognitive needs: No Hearing needs: No Vision needs: No Physical Exam Vital Signs: BMI result Body Mass Index 23.6 Assessment & Plan Assessment & Plan (1) Age related osteoporosis: Code(s): M81.0 - Age-related osteoporosis without current pathological fracture Category: Medical Qualifiers: Presence of current pathological fracture: unspecified Qualified Code(s): M81.0 - Age-related osteoporosis without current pathological fracture Plan: This 68-year-old white female with history of osteoporosis with negative secondary workup. There is a history of compression fracture kyphoplasty. Currently on Tymlos since being switched from alendronate in 02/2024 Plan is to continue the Tymlos for full 18 months' course. We will then transition back to an anti resorptive like alendronate 1. Osteoporosis: Management of osteoporosis continues effectively with Tymlos, showing good tolerance. I've extended the prescription refill period to 90 days, minimizing the frequency of pharmacy visits. Monitoring for adverse effects is ongoing, with reassessment planned in eight months unless earlier intervention is necessitated. The patient had an opportunity to ask questions regarding treatment plan. The patient expressed understanding and agreement with the above treatment plan. Patient was informed and verbally consented to the use of an ambient scribe for clinic note documentation during this visit. Medications: Changed From cholecalciferol (vitamin D3) 25 mcg PO DAILY 30 days 30 caps 11RF E55.9 - Vitamin D deficiency, unspecified To cholecalciferol (vitamin D3) 25 mcg PO DAILY 90 days 90 caps 4RF E55.9 - Vitamin D deficiency, unspecified Refilled pen needle, diabetic USE DIRECTED 100 ea 5RF Coding Level of Care Code Est Pt Level 3 (14077) Diagnoses Age related osteoporosis, unspecified pathological fracture presence M81.0 Presence of current pathological fracture: unspecified
[2024-07-20 15:03] VITALS: BP 150/68; PULSE 92; O2SAT 99; BMI 23.6
== END 2024-07-20 15:18 | disposition home or self-care (01) ==
LOC: HO.ENCR 14:49
PROVIDERS: PCP Internal Medicine; Visit Provider Internal Medicine Endocrinology, Diabetes & Metabolism
DX: M81.0 Age-related osteoporosis without current pathological fracture (principal)
CPT/HCPCS: 99213

== ENCOUNTER → 2024-07-20 14:45 | Outpatient (BNVA) | payer MEDICARE, OTHER, SELFPAY | PROVIDERS: PCP Internal Medicine; Visit Provider Internal Medicine Endocrinology, Diabetes & Metabolism | DX: M81.0 Age-related osteoporosis without current pathological fracture (principal) | CPT/HCPCS: 99212 ==

== ENCOUNTER 2024-11-10 12:59 | Outpatient (REF) | payer MEDICARE, OTHER, SELFPAY ==
[2024-11-10 16:14] LABS: MANUAL DIFF FLAG NO
[2024-11-10 16:25] LABS: Hematocrit 36.7 % (37.0-47.0); Hemoglobin 13.0 g/dl (12.0-16.0); Imm Gran Abs Auto 0.01 X10*3/uL (0.00-0.03); Imm Gran Pct Auto 0.1 % (0.0-0.4); Lymphocytes Absolute Auto 2.0 X10*3/uL (1.2-4.9); Mean Corpuscular HGB Conc 35.4 g/dl (31.0-35.0); Mean Corpuscular Hemoglobin 32.9 pg (27.0-33.0); Mean Corpuscular Volume 92.9 fL (80.0-98.0); NRBC Abs Auto 0.000 X10*3/uL (0.0-0.012); NRBC Pct Auto 0.0 /100WBC (0.0-0.2); Platelet Count 289 X10*3/uL (160-400); Red Blood Count 3.95 X10*6/uL (4.20-5.50); White Blood Count 8.4 X10*3/uL (4.8-10.8)
[2024-11-10 16:34] LABS: Alanine Aminotransferase 13 U/L (0-31); Albumin Level 4.5 g/dL (3.5-5.0); Alkaline Phosphatase 60 U/L (39-117); Anion Gap 14 (12-20); Aspartate Amino Transferase 26 U/L (5-31); Blood Urea Nitrogen 6 mg/dL (9-16); Calcium 10.1 mg/dL (8.4-10.2); Carbon Dioxide 25 mmol/L (22-29); Chloride 96 mmol/L (96-108); Estimated Glomerular Filt Rate > 60; Potassium 4.1 mmol/L (3.3-5.1); Sodium 131 mmol/L (135-145); Total Protein 7.4 g/dL (6.5-8.0)
[2024-11-10 17:01] LABS: Vitamin B12 279 pg/mL (200-900)
[2024-11-17 12:37] LABS: Vitamin D 25-OH, D2 <4 ng/mL; Vitamin D 25-OH, D3 33 ng/mL; Vitamin D 25-OH, Total 33 ng/mL (30-100)
== END 2024-11-10 13:00 | disposition home or self-care (01) ==
LOC: HO.HMGCLDS 12:59
PROVIDERS: Internal Medicine Hypertension Specialist; PCP Internal Medicine; Visit Provider Internal Medicine
DX: I10 Essential (primary) hypertension (principal); E87.1 Hypo-osmolality and hyponatremia; E78.9 Disorder of lipoprotein metabolism, unspecified; M81.0 Age-related osteoporosis without current pathological fracture; E55.9 Vitamin D deficiency, unspecified; K21.9 Gastro-esophageal reflux disease without esophagitis; F10.20 Alcohol dependence, uncomplicated
CPT/HCPCS: 36415; 80053; 82306; 82607; 83721; 85025; 99212

== ENCOUNTER 2024-11-10 12:59 | Outpatient (AMB) | payer MEDICARE, OTHER, SELFPAY ==
[2024-11-10 13:06] VITALS: BP 142/78; PULSE 86; O2SAT 97; BMI 22.3
--- NOTE | 2024-11-10 13:06 | A.OFFPC_ITS ---
Vital Signs 11/10/24 13:06 Height 5 ft 8 in Weight 147 lb BMI 22.3 BP 142/78 H Blood Pressure Location Lt brachial Position Sitting Pulse 86 Pulse Source Pulse Oximeter Pulse Oximetry (%) 97 Oxygen Delivery Method Room Air Intake Visit Reasons: 4 months f/up Application Architect Required: No Allergies oxycodone Adverse Reaction (Unknown, Verified 11/10/24 13:07) Dizziness, upset GI Medication List - Last Reconciled 11/10/24 by Hernandez Gonzalez MD abaloparatide (Tymlos) 80 mcg (0.04 mL) subcut DAILY amlodipine 10 mg PO DAILY 90 days atorvastatin 40 mg PO DAILY 90 days calcium citrate 500 mg (2 x 250 mg calcium) PO BID candesartan 32 mg PO DAILY 90 days cholecalciferol (vitamin D3) 25 mcg PO DAILY 90 days pantoprazole 40 mg PO DAILY pen needle, diabetic (Comfort EZ Pen [place]) As directed use with Tymlos medication daily Tobacco use date assessed: 06/26/24 Fall risk assessment: 1 Fall in past year Last assessed Fall Risk: 11/10/24 Dental Screening Dental Screen Date: 06/26/24 HPI 4 months f/up HPI Details History - The patient is a 69-year-old female pr esenting with chronic back pain and low vitamin B12 levels. - She reports a history of back pain, wh ich is reportedly located deep within her spine. The pain is described as persistent and not responsive to hcmc-ird-eopdxoa medications, topical treatments like Salonpas, or therapeutic machines that have been tried previously. - She has noted a kyphotic posture relat ed to osteoporosis, which contributes to discomfort when standing up straight. The patient experiences difficulty in maintaining an upright posture due to weak muscles, worsened by her curvature. - Additionally, the patient has a histor y of low vitamin B12 levels. Past interventions with vitamin B12 injections reportedly resulted in excessive B12 levels in her system. - continued to drink alcohol - chronic hyponatremia currently seeing accounting clerk Medical History: - Osteoporosis - Chronic back pain - Hyponatremia - Low vitamin B12 levels - Gastroesophageal reflux disease, manag ed with pantoprazole - Hypertension, managed with amlodipine - Hyperlipidemia, managed with atorvasta tin - A history of difficulties with oxycodo ne due to dizziness and prolonged sedation but can take Percocet Social History: - Alcohol consumption noted, with no pre vious advisories about its potential effect on sodium levels. - Limited physical activity due to back pain. - Discussed functional limitations due t o kyphosis impacting posture and mobility. Medications - Amlodipine for hypertension. - Candesartan (dose not specified) for h ypertension. - Atorvastatin 40 mg for hyperlipidemia. - Pantoprazole 40 mg for gastroesophagea l reflux disease. - Calcium and vitamin D3 supplements for osteoporosis management. Problem List - Chronic back pain - Osteoporosis - Hyponatremia - Low vitamin B12 levels - Hypertension - Hyperlipidemia - Gastroesophageal reflux disease Diagnostic results - Labs: Sodium level is persistently low at 130. Vitamin B12 level noted at 234, below desired range. [place] of Care - The patient will continue care under Alpa Wen, a accounting clerk, who is aware of the patient's sodium levels and other lab results. Patient Instructions - Begin vitamin B12 supplementation as p rescribed. - Continue taking vitamin D as instructe d. - Monitor pain and medication effects wi th percocet, to be used as needed. - Schedule labs in February, and ensure nephrology follow-up is coordinated. - Engage in physical activity to strengt hen muscles and address posture as tolerated. Review of Systems General: No fever no chills neurological: No headaches no dizziness ear nose throat: No sore throat no hearing difficulty no ear pain cardiovascular: No syncope, no chest pain, no palpitations gastrointestinal: No nausea vomiting or diarrhea endocrine: No polyuria polydipsia no heat intolerance Physical Exam general: No acute distress HEENT: No acute findings neck: Supple respiratory system: Able to talk in full sentences, no audible wheeze no stridor cardiovascular: S1-S2 RRR Back: Noticeable kyphosis, no pain with percussion Gastroenterology: No pain extremities: No new findings 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 x3 motor sensory intact skin: Normal turgor PFSH Medical History Patellofemoral pain syndrome of right knee Elevated cortisol level Vitamin D deficiency Osteoporosis Hyperparathyroidism Hyponatremia Age related osteoporosis Lipid disorder Hypertension, essential Surgical History Hx of oral surgery H/O kyphoplasty H/O left breast biopsy History of colonoscopy History of right cataract surgery Family History Father Lung cancer Mother CAD (coronary artery disease) Breast cancer Diabetes mellitus Partial blindness Sister Breast cancer Maternal Grandfather Unknown family medical history Maternal Grandmother Unknown family medical history Paternal Grandfather Unknown family medical history Paternal Grandmother Unknown family medical history Maternal Aunt Breast cancer Social History Housing: House Alcohol intake: current Alcohol intake frequency: a few times a week Patient Tobacco Use Status: Former Tobacco user Tobacco use type: Cigarette Cigarette Packs Per Day: 1.5 e-Cigarette/Vaping Use: Currently Using service: No Current occupational status: retired Cognitive needs: No Hearing needs: No Vision needs: No Questionnaire Thrive Questionnaire Date Thrive assessed: 11/10/24 I am a: Patient What is your living situation today?: I have a steady place to live Within the past 12 months, did the food you bought not last and you didn't have the money to get more?: Never true Within the past 12 months, did you worry whether your food would run out before you got money to buy more?: Never true Do you have trouble paying for medicines?: No Do you have trouble getting transportation to medical appointments?: No Do you have trouble paying your heating and electricity bill?: No Do you have trouble taking care of your child, family member or friend?: No Do you have trouble with day-to-day activities such as bathing, preparing meals, shopping, managing finances, etc.?: No Are you currently unemployed and looking for a job?: No Are you interested in more education?: No Please select the resources that you would like help with: None Currently or been in a relationship where the following occur: No concerns reported THRIVE Score: 0 ROSEANNE-7 AMB Questionnaire ROSEANNE-7 Date ROSEANNE - 7 assessed: 06/26/24 Source: Developed by Drs. Ambrosio Paulino, Penny Guerra, Pranav Gonzales and colleagues, with an educational bernie from [employer]. Physical exam (Primary Care) Vital Signs: Last Vital Signs Pulse 86 11/10/24 13:06 BP 142/78 H 11/10/24 13:06 Pulse Ox 97 11/10/24 13:06 Oxygen Delivery Method Room Air 11/10/24 13:06 BMI result Body Mass Index 22.3 Tobacco/Smoking Status: Tobacco use Status Tobacco use date assessed 06/26/24 11/10/24 13:09 Patient Tobacco Use Status Former Tobacco user 11/10/24 13:09 Tobacco use type Cigarette 11/10/24 13:09 e-Cigarette/Vaping Use Currently Using 11/10/24 13:09 Thrive Assessment: Date of Thrive Assessment Date Thrive assessed 11/10/24 11/10/24 13:09 Currently or been in a relationship where the following occur: No concerns reported Coding Level of Care Code Est Pt Level 4 (20729) Complex EM visit Add On G2211 Diagnoses Hypertension, essential I10 Chronic hyponatremia E87.1 Lipid disorder E78.9 Age related osteoporosis, unspecified pathological fracture presence M81.0 Presence of current pathological fracture: unspecified Vitamin D deficiency E55.9 Chronic GERD K21.9 Alcoholism F10.20 Assessment & Plan Assessment & Plan (1) Hypertension, essential: Code(s): I10 - Essential (primary) hypertension Category: Medical (2) Chronic hyponatremia: Code(s): E87.1 - Hypo-osmolality and hyponatremia Category: Medical (3) Lipid disorder: Code(s): E78.9 - Disorder of lipoprotein metabolism, unspecified Category: Medical (4) Age related osteoporosis: Code(s): M81.0 - Age-related osteoporosis without current pathological fracture Category: Medical Qualifiers: Presence of current pathological fracture: unspecified Qualified Code(s): M81.0 - Age-related osteoporosis without current pathological fracture (5) Vitamin D deficiency: Code(s): E55.9 - Vitamin D deficiency, unspecified Category: Medical (6) Chronic GERD: Code(s): K21.9 - Gastro-esophageal reflux disease without esophagitis Category: Medical (7) Alcoholism: Code(s): F10.20 - Alcohol dependence, uncomplicated Category: Medical Plan History - The patient is a 69-year-old female presenting with chronic back pain and low vitamin B12 levels. - She reports a history of back pain, which is reportedly located deep within her spine. The pain is described as persistent and not responsive to thsg-nlw-lhhwkre medications, topical treatments like Salonpas, or therapeutic machines that have been tried previously. - She has noted a kyphotic posture related to osteoporosis, which contributes to discomfort when standing up straight. The patient experiences difficulty in maintaining an upright posture due to weak muscles, worsened by her curvature. - Additionally, the patient has a history of low vitamin B12 levels. Past interventions with vitamin B12 injections reportedly resulted in excessive B12 levels in her system. - continued to drink alcohol - chronic hyponatremia currently seeing accounting clerk Medical History: - Osteoporosis - Chronic back pain - Hyponatremia - Low vitamin B12 levels - Gastroesophageal reflux disease, managed with pantoprazole - Hypertension, managed with amlodipine - Hyperlipidemia, managed with atorvastatin - A history of difficulties with oxycodone due to dizziness and prolonged sedation but can take Percocet Social History: - Alcohol consumption noted, with no previous advisories about its potential effect on sodium levels. - Limited physical activity due to back pain. - Discussed functional limitations due to kyphosis impacting posture and mobility. Medications - Amlodipine for hypertension. - Candesartan (dose not specified) for hypertension. - Atorvastatin 40 mg for hyperlipidemia. - Pantoprazole 40 mg for gastroesophageal reflux disease. - Calcium and vitamin D3 supplements for osteoporosis management. Problem List - Chronic back pain - Osteoporosis - Hyponatremia - Low vitamin B12 levels - Hypertension - Hyperlipidemia - Gastroesophageal reflux disease Diagnostic results - Labs: Sodium level is persistently low at 130. Vitamin B12 level noted at 234, below desired range. [place] of Care - The patient will continue care under Dr. Wen, a accounting clerk, who is aware of the patient's sodium levels and other lab results. Patient Instructions - Begin vitamin B12 supplementation as prescribed. - Continue taking vitamin D as instructed. - Monitor pain and medication effects with percocet, to be used as needed. - Schedule labs in February, and ensure nephrology follow-up is coordinated. - Engage in physical activity to strengthen muscles and address posture as tolerated. Orders: Orders Complete Blood Count Auto Diff Today E55.9 - Vitamin D deficiency, unspecified, E78.9 - Disorder of lipoprotein metabolism, unspecified, E87.1 - Hypo-osmolality and hyponatremia, F10.20 - Alcohol dependence, uncomplicated, I10 - Essential (primary) hypertension, K21.9 - Gastro-esophageal reflux disease without esophagitis, M81.0 - Age-related osteoporosis without current pathological fracture Vitamin D 25-OH (D2 and D3) Today E55.9 - Vitamin D deficiency, unspecified, E78.9 - Disorder of lipoprotein metabolism, unspecified, E87.1 - Hypo-osmolality and hyponatremia, F10.20 - Alcohol dependence, uncomplicated, I10 - Essential (primary) hypertension, K21.9 - Gastro-esophageal reflux disease without esophagitis, M81.0 - Age-related osteoporosis without current pathological fracture Vitamin B12 Today E55.9 - Vitamin D deficiency, unspecified, E78.9 - Disorder of lipoprotein metabolism, unspecified, E87.1 - Hypo-osmolality and hyponatremia, F10.20 - Alcohol dependence, uncomplicated, I10 - Essential (primary) hypertension, K21.9 - Gastro-esophageal reflux disease without esophagitis, M81.0 - Age-related osteoporosis without current pathological fracture LDL Cholesterol Direct Today E55.9 - Vitamin D deficiency, unspecified, E78.9 - Disorder of lipoprotein metabolism, unspecified, E87.1 - Hypo-osmolality and hyponatremia, F10.20 - Alcohol dependence, uncomplicated, I10 - Essential (primary) hypertension, K21.9 - Gastro-esophageal reflux disease without esophagitis, M81.0 - Age-related osteoporosis without current pathological fracture Comprehensive Met. Panel Today E55.9 - Vitamin D deficiency, unspecified, E78.9 - Disorder of lipoprotein metabolism, unspecified, E87.1 - Hypo-osmolality and hyponatremia, F10.20 - Alcohol dependence, uncomplicated, I10 - Essential (primary) hypertension, K21.9 - Gastro-esophageal reflux disease without esophagitis, M81.0 - Age-related osteoporosis without current pathological fr acture Medications: New cyanocobalamin (vitamin B-12) 1,000 mcg PO DAILY 90 tabs 0RF 90 days oxycodone-acetaminophen 2.5-325 mg (Percocet) Partial Fill upon patient request. 1 tab PO BID PRN 30 tabs 0RF pain 30 days
--- OUTSIDE RECORDS SUMMARY | 2024-11-10 14:02 | XMS_ITS | Patient Health Record ---
Author Organization [facility] Address [address] [place] [address] Care Team Providers Care Claim Trainee Name Role Phone Adleine JAIN, Evy Primary Care Provider U Ross Dugan Jr Unavailable Reason For Referral No Information Plan Of Treatment No Information Insurance Providers Payer Name Payer Address Payer Phone Subscriber Number Group Number Insured Name Patient Relationship to Insured Coverage Start Date Coverage End Date [employer] [address] [place] [phone] [id number] MARYAM RAMIREZ LT Self - patient is the insured Medical (General) History Medical History History ICD Code colonoscopy 10/01/2003 hypertension osteopenia
== END 2024-11-10 13:29 | disposition home or self-care (01) ==
LOC: HO.HMCC 13:00
PROVIDERS: PCP Internal Medicine; Visit Provider Internal Medicine
DX: I10 Essential (primary) hypertension (principal); F10.20 Alcohol dependence, uncomplicated; E87.1 Hypo-osmolality and hyponatremia; E78.9 Disorder of lipoprotein metabolism, unspecified; M81.0 Age-related osteoporosis without current pathological fracture; E55.9 Vitamin D deficiency, unspecified; K21.9 Gastro-esophageal reflux disease without esophagitis

== ENCOUNTER 2024-11-17 13:22 | Outpatient (AMB) | payer MEDICARE, OTHER, SELFPAY ==
[2024-11-17 13:26] VITALS: BP 128/64; PULSE 102; O2SAT 98; BMI 22.3
--- NOTE | 2024-11-17 13:26 | HO.NEPHOV ---
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 Required: No Accompanied by: Self / Same As Patient Allergies oxycodone Adverse Reaction (Unknown, Verified 11/17/24 13:29) Dizziness, upset GI Medication List - Last Reconciled 11/17/24 by Mario Kaufman MD abaloparatide (Tymlos) 80 mcg (0.04 mL) subcut DAILY amlodipine 10 mg PO DAILY 90 days atorvastatin 40 mg PO DAILY 90 days calcium citrate 500 mg (2 x 250 mg calcium) PO BID candesartan 32 mg PO DAILY 90 days cholecalciferol (vitamin D3) 25 mcg PO DAILY 90 days cyanocobalamin (vitamin B-12) 1,000 mcg PO DAILY 90 days pantoprazole 40 mg PO DAILY pen needle, diabetic (Comfort EZ Pen [place]) As directed use with Tymlos medication daily HPI Comments Details: 68 yr old woman referred for Hyponatremia in a setting of HTN And osteoporosis Based on EMR, she has chronic asymptomatic hyponatremia Usually pNa is around 131 mmol/L Lowest value was 128 few years ago. SHe has a h/o HTN and currently on Amlodipine and Candesartan Not on any diuretics- especially thiazides She stays on a regular diet h/o Smoking : 1 and 1/2 pack for 40 years. Quit 2- 3 yrs ago. h/o mild COPD. Does not require treatment/inhalers h/o drinking beer - everyday Says she drinks 5- 7 bottles Granda light a week Also drinks 3 + bottles of Pepsi a day , in addition to other fluids- coffee etc She underwent 24 hour urine collection 3 times in 2 years. The volume was 2800, 3000 and 3500 and urine osmolarity was relatively low at 191 05/21/23 Feels ok Drinks about 2 L fluids including Pepsi and Beer 08/20/2023 She lost her on 07/22/2023. She started drinking excessive beer again. 03/16/24 ;Still drinks about 2 -3 Michelob Ultras, in addition to tea, flavoured water ! 11/17/24 ;Overall doing well. Drinks beer everyday [facility] Medical History Patellofemoral pain syndrome of right knee Elevated cortisol level Vitamin D deficiency Osteoporosis Hyperparathyroidism Hyponatremia Age related osteoporosis Lipid disorder Hypertension, essential Surgical History Hx of oral surgery H/O kyphoplasty H/O left breast biopsy History of colonoscopy History of right cataract surgery Family History Father Lung cancer Mother CAD (coronary artery disease) Breast cancer Diabetes mellitus Partial blindness Sister Breast cancer Maternal Grandfather Unknown family medical history Maternal Grandmother Unknown family medical history Paternal Grandfather Unknown family medical history Paternal Grandmother Unknown family medical history Maternal Aunt Breast cancer Social History Housing: House Alcohol intake: current Alcohol intake frequency: a few times a week Patient Tobacco Use Status: Former Tobacco user Tobacco use type: Cigarette Cigarette Packs Per Day: 1.5 e-Cigarette/Vaping Use: Currently Using service: No Current occupational status: retired Cognitive needs: No Hearing needs: No Vision needs: No Physical Exam Vital Signs: Last Vital Signs Pulse 102 H 11/17/24 13:26 BP 128/64 11/17/24 13:26 Pulse Ox 98 11/17/24 13:26 Oxygen Delivery Method Room Air 11/17/24 13:26 BMI result Body Mass Index 22.3 Comfortable Neck supple no JVD. Lungs entry equal no rales. Heart S1-S2 heard no gallop or rub. Abdomen soft nontender. Neuro alert awake oriented. No asterixis. Extremities no edema. Results Reviewed Nephrology Results: Hgb, (12.0-16.0) 13.0 g/dl 11/10/24 WBC, (4.8-10.8) 8.4 X10*3/uL 11/10/24 Plt Count, (160-400) 289 X10*3/uL 11/10/24 Sodium, (135-145) 131 mmol/L L 11/10/24 Potassium, (3.3-5.1) 4.1 mmol/L 11/10/24 Chloride, (96-108) 96 mmol/L 11/10/24 Carbon Dioxide, (22-29) 25 mmol/L 11/10/24 BUN, (9-16) 6 mg/dL L 11/10/24 Creatinine, (0.5-1.4) 0.65 mg/dL 11/10/24 Calcium, (8.4-10.2) 10.1 mg/dL Δ 11/10/24 Assessment & Plan Assessment & Plan (1) Hyponatremia: Code(s): E87.1 - Hypo-osmolality and hyponatremia Category: Medical (2) Chronic hyponatremia: Code(s): E87.1 - Hypo-osmolality and hyponatremia Category: Medical Plan . 69 yr old woman with Chronic Asymptomatic Hyponatremia / Hypotonic hyponatremia She has a dilute urine with polyuria - most likely due to polydipsia/ beer potomania TSH was normal; Cortisol normal Plan: Limit hypotonic fluid intake : Cut down and discontinue beer Replace soda with Gatorade Total fluid intake should be < 1.5L per 24 hours for now Recent Na 131 Goal pNa > 133 HTN BP is acceptable Repeat was better Watch BP for now Orders: Orders Basic Metabolic Panel 6 Months E87.1 - Hypo-osmolality and hyponatremia Coding Level of Care Code Est Pt Level 4 (92852) Diagnoses Hyponatremia E87.1 Chronic hyponatremia E87.1
--- OUTSIDE RECORDS SUMMARY | 2024-11-17 14:14 | XMS_ITS | Patient Health Record ---
Author Organization [facility] Address [address] [place] [address] Care Team Providers Care Change Control Coordinator Name Role Phone Adeline JAIN, Evy Primary Care Provider U Ross Dugan Jr Unavailable Reason For Referral No Information Plan Of Treatment No Information Insurance Providers Payer Name Payer Address Payer Phone Subscriber Number Group Number Insured Name Patient Relationship to Insured Coverage Start Date Coverage End Date [facility] [address] [place] [phone] [id number] MARYAM RAMIREZ LT Self - patient is the insured Medical (General) History Medical History History ICD Code colonoscopy 10/01/2003 hypertension osteopenia
== END 2024-11-17 13:38 | disposition home or self-care (01) ==
LOC: HO.HKA 13:23
PROVIDERS: PCP Internal Medicine; Visit Provider Internal Medicine Hypertension Specialist
DX: E87.1 Hypo-osmolality and hyponatremia (principal)
CPT/HCPCS: 99214

== ENCOUNTER → 2024-11-17 13:22 | Outpatient (BNVA) | payer MEDICARE, OTHER, SELFPAY | PROVIDERS: PCP Internal Medicine; Visit Provider Internal Medicine Hypertension Specialist | DX: E87.1 Hypo-osmolality and hyponatremia (principal); I10 Essential (primary) hypertension; M81.0 Age-related osteoporosis without current pathological fracture; Z87.891 Personal history of nicotine dependence | CPT/HCPCS: 99212 ==

== ENCOUNTER 2025-03-16 11:00 | Outpatient (AMB) | payer MEDICARE, OTHER, SELFPAY ==
[2025-03-16 11:03] VITALS: BP 122/70; PULSE 90; O2SAT 97; BMI 22.5
--- NOTE | 2025-03-16 11:03 | A.OFFPC_ITS ---
Vital Signs 03/16/25 11:03 Height 5 ft 8 in Weight 148 lb BMI 22.5 BP 122/70 Blood Pressure Location Rt brachial Position Sitting Pulse 90 Pulse Source Pulse Oximeter Pulse Oximetry (%) 97 Intake Visit Reasons: 4 months f/up Allergies oxycodone Adverse Reaction (Unknown, Verified 03/16/25 11:04) Dizziness, upset GI Medication List - Last Reconciled 03/16/25 by Hernandez Gonzalez MD abaloparatide (Tymlos) 80 mcg (0.04 mL) subcut DAILY amlodipine 10 mg PO DAILY 90 days atorvastatin 40 mg PO DAILY 90 days calcium citrate 500 mg (2 x 250 mg calcium) PO BID candesartan 32 mg PO DAILY 90 days cholecalciferol (vitamin D3) 25 mcg PO DAILY 90 days cyanocobalamin (vitamin B-12) 1,000 mcg PO DAILY 90 days pantoprazole 40 mg PO DAILY pen needle, diabetic (Comfort EZ Pen [place]) As directed use with Tymlos medication daily Tobacco use date assessed: 06/26/24 Fall risk assessment: No Falls in past year Last assessed Fall Risk: 03/16/25 Dental Screening Dental Screen Date: 06/26/24 HPI HPI Comments History of Present Illness Details History of Present Illness The patient is a 69 year old individual presenting for evaluation of new right arm pain. Cervical Radiculopathy: - The patient reports new onset of pain in the right shoulder blade that radiates down the arm to the elbow and occasionally into the forearm. - The pain is described as sharp and can occur suddenly even when sitting quietly. - The patient is unable to sleep on the right side due to the pain, which is also exacerbated by lifting the arm. - There is no associated hand weakness, numbness, or tingling. - For pain relief, the patient has tried Tylenol and Advil, noting that ibuprofen provides relief. - The patient cannot take opioids as the y cause nausea and somnolence. Severe Osteoporosis: - The patient has a known history of sev ere osteoporosis, with a T-score of -3.8 on a bone density scan from last year. - The patient is receiving injections as treatment for this condition. by Dr Delaney Essential Hypertension: - The patient has a history of hypertens ion, which is managed with amlodipine and candesartan 32 mg. - Blood pressure at the visit was 122/70 mmHg. Hyperlipidemia: - The patient takes atorvastatin 40 mg f or cholesterol management. Gastroesophageal Reflux Disease: - The patient takes pantoprazole 40 mg a nd reports needing it due to a diet that includes peppers and fried onions. Health Maintenance: - The patient's last lab work was in Oct, approximately six months ago. - A mammogram is scheduled for June. - The patient received two vaccinations on January 16. Medical History: - Severe osteoporosis with a T-score of -3.8 - Essential hypertension - Hyperlipidemia - Gastroesophageal reflux disease - Vitamin B12 deficiency, managed with p rescription supplement Social History: - Alcohol use: Reports drinking occasion ally but has significantly reduced consumption. - Diet: Has reduced soda intake and repo rts drinking a lot of water. [facility] Medical History Patellofemoral pain syndrome of right knee Elevated cortisol level Vitamin D deficiency Osteoporosis Hyperparathyroidism Hyponatremia Age related osteoporosis Lipid disorder Hypertension, essential Surgical History Hx of oral surgery H/O kyphoplasty H/O left breast biopsy History of colonoscopy History of right cataract surgery Family History Father Lung cancer Mother CAD (coronary artery disease) Breast cancer Diabetes mellitus Partial blindness Sister Breast cancer Maternal Grandfather Unknown family medical history Maternal Grandmother Unknown family medical history Paternal Grandfather Unknown family medical history Paternal Grandmother Unknown family medical history Maternal Aunt Breast cancer Social History Housing: House Alcohol intake: current Alcohol intake frequency: a few times a week Patient Tobacco Use Status: Former Tobacco user Tobacco use type: Cigarette Cigarette Packs Per Day: 1.5 e-Cigarette/Vaping Use: Currently Using service: No Current occupational status: retired Cognitive needs: No Hearing needs: No Vision needs: No Questionnaire Thrive Questionnaire Date Thrive assessed: 06/19/24 I am a: Patient What is your living situation today?: I have a steady place to live Within the past 12 months, did the food you bought not last and you didn't have the money to get more?: Never true Within the past 12 months, did you worry whether your food would run out before you got money to buy more?: Never true Do you have trouble paying for medicines?: No Do you have trouble getting transportation to medical appointments?: No Do you have trouble paying your heating and electricity bill?: No Do you have trouble taking care of your child, family member or friend?: No Do you have trouble with day-to-day activities such as bathing, preparing meals, shopping, managing finances, etc.?: No Are you currently unemployed and looking for a job?: No Are you interested in more education?: No Please select the resources that you would like help with: None Currently or been in a relationship where the following occur: No concerns reported THRIVE Score: 0 ROSEANNE-7 AMB Questionnaire ROSEANNE-7 Date ROSEANNE - 7 assessed: 06/26/24 Source: Developed by Drs. Ambrosio Paulino, Penny Guerra, Pranav Gonzales and colleagues, with an educational bernie from [employer]. Review of Systems Narrative Review of Systems - General: No fever no chills - Neurological: No headaches no dizziness - Ear nose throat: No sore throat no hearing difficulty no ear pain - Cardiovascular: No syncope, no chest pain, no palpitations - Gastrointestinal: No nausea vomiting or diarrhea - Endocrine: No polyuria polydipsia no heat intolerance - Genitourinary: No dysuria , no blood in urine Physical exam (Primary Care) Vital Signs: Last Vital Signs Pulse 90 03/16/25 11:03 BP 122/70 03/16/25 11:03 Pulse Ox 97 03/16/25 11:03 BMI result Body Mass Index 22.5 Tobacco/Smoking Status: Tobacco use Status Tobacco use date assessed 06/26/24 03/16/25 11:05 Patient Tobacco Use Status Former Tobacco user 03/16/25 11:05 Tobacco use type Cigarette 03/16/25 11:05 e-Cigarette/Vaping Use Currently Using 03/16/25 11:05 Thrive Assessment: Date of Thrive Assessment Date Thrive assessed 06/19/24 03/16/25 11:05 Currently or been in a relationship where the following occur: No concerns reported Narrative Physical Exam General: No acute distress HEENT: No acute findings Neck: Supple, pain noted radiating from shoulder blade down to elbow and forearm Respiratory system: Able to talk in full sentences, no audible wheeze Cardiovascular: S1-S2 regular in rate and rhythm Gastrointestinal: No pain Extremities: no edema TYPE COPYIST: Alert awake oriented x3 motor intact Skin: Normal turgor Coding Level of Care Code Complex visit Add On G2211 Diagnoses Radiculitis of right cervical region M54.12 Hypertension, essential I10 Lipid disorder E78.9 Age related osteoporosis, unspecified pathological fracture presence M81.0 Presence of current pathological fracture: unspecified Vitamin D deficiency E55.9 Chronic GERD K21.9 Chronic hyponatremia E87.1 Other secondary kyphosis, 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 Kyphosis type: other secondary Spinal region: cervicothoracic Assessment & Plan Assessment & Plan (1) Radiculitis of right cervical region: Code(s): M54.12 - Radiculopathy, cervical region Category: Medical (2) Hypertension, essential: Code(s): I10 - Essential (primary) hypertension Category: Medical (3) Lipid disorder: Code(s): E78.9 - Disorder of lipoprotein metabolism, unspecified Category: Medical (4) Age related osteoporosis: Code(s): M81.0 - Age-related osteoporosis without current pathological fracture Category: Medical Qualifiers: Presence of current pathological fracture: unspecified Qualified Code(s): M81.0 - Age-related osteoporosis without current pathological fracture (5) Vitamin D deficiency: Code(s): E55.9 - Vitamin D deficiency, unspecified Category: Medical (6) Chronic GERD: Code(s): K21.9 - Gastro-esophageal reflux disease without esophagitis Category: Medical (7) Chronic hyponatremia: Code(s): E87.1 - Hypo-osmolality and hyponatremia Category: Medical (8) Kyphosis: Code(s): M40.209 - Unspecified kyphosis, site unspecified Category: Medical Qualifiers: Kyphosis type: other secondary Spinal region: cervicothoracic Qualified Code(s): M40.13 - Other secondary kyphosis, cervicothoracic region Plan Problem List - Cervical radiculopathy - Severe osteoporosis - Essential hypertension - Hyperlipidemia - Gastroesophageal reflux disease - Health Maintenance Plan - For neuropathic pain secondary to suspected cervical radiculopathy, will start gabapentin. - The patient will take one 100 mg capsule at bedtime for one week, then increase to two 100 mg capsules at bedtime. - A one-month supply of gabapentin will be prescribed, and the patient should provide an update on its effectiveness for a refill. - The patient was counseled on potential side effects of gabapentin, including drowsiness and allergic reactions, and advised to be careful when getting up at night. - Ordered blood tests to be completed today as they are due. - Continue all current medications, including those for hypertension, hyperlipidemia, GERD, and osteoporosis. - The patient will follow up in approximately three months at the already scheduled physical appointment in June. Orders: Orders Complete Blood Count Auto Diff Today E55.9 - Vitamin D deficiency, unspecified, E78.9 - Disorder of lipoprotein metabolism, unspecified, E87.1 - Hypo-osmolality and hyponatremia, I10 - Essential (primary) hypertension, K21.9 - Gastro- esophageal reflux disease without esophagitis, M40.209 - Unspecified kyphosis, site unspecified, M81.0 - Age-related osteoporosis without current pathological fracture LDL Cholesterol Direct Today E55.9 - Vitamin D deficiency, unspecified, E78.9 - Disorder of lipoprotein metabolism, unspecified, E87.1 - Hypo-osmolality and hyponatremia, I10 - Essential (primary) hypertension, K21.9 - Gastro-esophageal reflux disease without esophagitis, M40.209 - Unspecified kyphosis, site unspecified, M81.0 - Age-related osteoporosis without current pathological fracture TSH reflex Free T4 Today E55.9 - Vitamin D deficiency, unspecified, E78.9 - Disorder of lipoprotein metabolism, unspecified, E87.1 - Hypo-osmolality and hyponatremia, I10 - Essential (primary) hypertension, K21.9 - Gastro-esophageal reflux disease without esophagitis, M40.209 - Unspecified kyphosis, site unspe cified, M81.0 - Age-related osteoporosis without current pathological fracture Vitamin D 25-OH (D2 and D3) Today E55.9 - Vitamin D deficiency, unspecified, E78.9 - Disorder of lipoprotein metabolism, unspecified, E87.1 - Hypo-osmolality and hyponatremia, I10 - Essential (primary) hypertension, K21.9 - Gastro- esophageal reflux disease without esophagitis, M40.209 - Unspecified kyphosis, site unspecified, M81.0 - Age-related osteoporosis without current pathological fracture Comprehensive Met. Panel Today E55.9 - Vitamin D deficiency, unspecified, E78.9 - Disorder of lipoprotein metabolism, unspecified, E87.1 - Hypo-osmolality and hyponatremia, I10 - Essential (primary) hypertension, K21.9 - Gastro-esophageal reflux disease without esophagitis, M40.209 - Unspecified kyphosis, site unspecified, M81.0 - Age-related osteoporosis without current pathological fracture Vitamin B12 Today E55.9 - Vitamin D deficiency, unspecified, E78.9 - Disorder of lipoprotein metabolism, unspecified, E87.1 - Hypo-osmolality and hyponatremia, I10 - Essential (primary) hypertension, K21.9 - Gastro-esophageal reflux disease without esophagitis, M40.209 - Unspecified kyphosis, site unspecified, M81.0 - Age-related osteoporosis without current pathological fracture Medications: New gabapentin 200 mg (2 x 100 mg) PO BEDTIME 60 caps 0RF 30 days
--- OUTSIDE RECORDS SUMMARY | 2025-03-16 14:29 | XMS_ITS | Patient Health Record ---
Author Organization [facility] Address [address] [place] [address] Care Team Providers Care Superintendent Landfill Operations Name Role Phone Adeline JAIN, Evy Primary Care Provider U Ross Dugan Jr Unavailable Reason For Referral No Information Plan Of Treatment No Information Insurance Providers Payer Name Payer Address Payer Phone Subscriber Number Group Number Insured Name Patient Relationship to Insured Coverage Start Date Coverage End Date [facility] [address] [place] [phone] [id number] MARYAM RAMIREZ LT Self - patient is the insured Medical (General) History Medical History History ICD Code colonoscopy 10/01/2003 hypertension osteopenia
== END 2025-03-16 11:46 | disposition home or self-care (01) ==
LOC: HO.HMCC 11:01
PROVIDERS: PCP Internal Medicine; Visit Provider Internal Medicine
DX: M54.12 Radiculopathy, cervical region (principal); I10 Essential (primary) hypertension; E78.9 Disorder of lipoprotein metabolism, unspecified; M81.0 Age-related osteoporosis without current pathological fracture; E55.9 Vitamin D deficiency, unspecified; K21.9 Gastro-esophageal reflux disease without esophagitis; E87.1 Hypo-osmolality and hyponatremia; M40.13 Other secondary kyphosis, cervicothoracic region

== ENCOUNTER 2025-03-16 16:52 | Emergency (ER) | payer MEDICARE, OTHER, SELFPAY ==
[2025-03-16 17:03] VITALS: BP 182/77; PULSE 94; RESP 18; TEMP 36.3; O2SAT 99; BMI 24.5
--- NOTE | 2025-03-16 17:04 | ED_ITS ---
HPI - General Adult General Chief complaint: Recheck/Abnormal Lab/Rx Stated complaint: Abnormal Labs Time Seen by Provider: 03/16/25 18:37 History of Present Illness ED Provider: Coreen Jones HPI narrative: 69-year-old female with medical history that is significant for asymptomatic chronic hyponatremia, baseline around 128-131, in the setting of hypertension and osteoporosis, daily alcohol use, hyperparathyroidism, hyperlipidemia presents to the ED with chief complaint of a low sodium level at 124. She reports that she was seen by her PCP, who did basic labs and called her to come to the ED for an abnormal sodium level. Upon arrival to the ED she denies any active chest pain or pressure, shortness of breath, abdominal pain, nausea or vomiting, urinary complaints. Reports that she baseline is very fatigued daily, and this is unchanged. No fever, chills or recent illnesses. Related Data Previous Rx's ?Medication ?Instructions ?Recorded calcium citrate 500 mg (2 x 250 mg calcium) PO BID 04/20/24 #360 tabs cholecalciferol (vitamin D3) 25 25 mcg PO DAILY 90 day s #90 caps 07/20/24 mcg (1,000 unit) capsule pen needle, diabetic 31 gauge x #50 ea 08/03/2409/04 (Comfort EZ Pen [place]) abaloparatide (Tymlos) 80 mcg (0.04 mL) subcut RAMILA Y 11/16/24 #1.56 mL amlodipine 10 mg tablet 10 mg PO DAILY 90 days #90 t abs 01/20/25 atorvastatin 40 mg tablet 40 mg PO DAILY 90 days #90 t abs 01/20/25 candesartan 32 mg tablet 32 mg PO DAILY 90 days #90 t abs 01/20/25 cyanocobalamin (vitamin B-12) 1,000 mcg PO DAILY 90 da ys #90 tabs 02/08/25 1,000 mcg tablet pantoprazole 40 mg tablet,delayed 40 mg PO DAILY #90 t abs 02/20/25 release cefpodoxime 200 mg tablet 200 mg PO Q12H 7 days #14 ta bs 03/16/25 gabapentin 100 mg capsule 200 mg (2 x 100 mg) PO BEDTI ME 30 03/16/25 days #60 caps Allergies Allergy/AdvReac Type Severity Reaction Status Date / Time oxycodone AdvReac Unknown Dizziness, Verified 03/16/25 17:07 upset GI Review of Systems 2 Review of Systems: ROS is otherwise negative unless mentioned in HPI. [facility] Past Medical History Medical History Patellofemoral pain syndrome of right knee Elevated cortisol level Vitamin D deficiency Osteoporosis Hyperparathyroidism Hyponatremia Age related osteoporosis Lipid disorder Hypertension, essential Surgical History Hx of oral surgery H/O kyphoplasty H/O left breast biopsy History of colonoscopy History of right cataract surgery Family History Family History Father Lung cancer Mother CAD (coronary artery disease) Breast cancer Diabetes mellitus Partial blindness Sister Breast cancer Maternal Grandfather Unknown family medical history Maternal Grandmother Unknown family medical history Paternal Grandfather Unknown family medical history Paternal Grandmother Unknown family medical history Maternal Aunt Breast cancer Social History Social History Housing: House Alcohol intake: current Alcohol intake frequency: a few times a week Patient Tobacco Use Status: Former Tobacco user Tobacco use type: Cigarette Cigarette Packs Per Day: 1.5 Smoked in Last 30 Days: Yes e-Cigarette/Vaping Use: Currently Using Use of substances other than those prescribed or required for medical reasons: No Advance Directives: No Advance Directives Information Provided: No service: No Current occupational status: retired Cognitive needs: No Hearing needs: No Vision needs: No Physical Exam ED Exam Exam: Nursing notes and vital signs reviewed. Constitutional: Well-appearing, NAD. Alert. Oriented X3. Eyes: EOMI. ENT: Pharynx normal. Neck: Normal inspection. Neck supple. CVS: Normal heart rate and rhythm. Pulses normal. Respiratory: No respiratory distress. Breath sounds normal. Abdomen: Soft and nontender. Skin: Skin warm and dry. Normal skin color. Extremities: No lower extremity edema. Neuro: Oriented X 3. No motor deficit. Vital Signs: Vital Signs - 24 hr 03/16/25 17:03 03/16/25 19:03 03/16/25 20:19 Temperature 97.3 F 98.1 F 98.1 F Pulse Rate 94 87 84 Respiratory Rate 18 20 14 Blood Pressure 182/77 H 160/71 H 129/58 L Pulse Oximetry 99 99 96 Oxygen Delivery Method Room Air Room Air Room Air BMI result Body Mass Index 24.5 Course Course Course Narrative: This is a rapid medical exam performed by Ros Camara NP: Additional HPI, ROS, PE not included below will be deferred to primary provider. Patient is a 69y/o F with history of chronic hyponatremia, HTN, GERD, hyperparathyroidism, alcoholism presenting with report of hyponatremia on labs drawn today(124). Feels tired, denies any other complaints. Plan: Labs Medications Administered Discontinued Medications Generic Name Dose Route Start Last Admin Trade Name Freq PRN Reason Stop Dose Admin Sodium Chloride 1,000 mls @ 999 mls/hr 03/16/25 18:38 03/16/25 20:41 Ns IV 03/16/25 19:38 Infused .Q1H1M ONE Infusion Magnesium Sulfate 2 gm in 50 mls @ 25 mls/hr 03/16/25 18:38 03/16/25 20:41 Magnesium Sulfate/H2o IV 03/16/25 20:37 Infused ONCE ONE Infusion Medical Decision Making Medical Decision Making [facility] Narrative: Overall she appears well on exam. Her sodium level outpatient was 124, upon repeat in the ED she is 125. Her magnesium is also very low at 1.3. We will plan to repeat both, with a L of normal saline, as well as triggers IV magnesium in the repeat the levels. The patient is opposed to staying in the hospital overnight as she tells me she has to see her sister in a detention very early in the morning, it can not simply cancel this. She also tells me she feels more comfortable at home and does not like the hospital. Given her hyponatremia is chronic and asymptomatic, we will administer interventions and repeat levels, and engage in shared decision-making going forward. 2139-- after a L of IV fluid, 2 g of magnesium, her lab work has significantly improved. Repeat sodium of 127, a significant improvement. Magnesium is now 1.9. The urinalysis however is concerning for active infection with many leukocytes and WBCs. We will discharge home with a prescription for outpatient antibiotics. This may be a cause of the acute hyponatremia. I did recommend admission strongly to the patient however she persistently has declined. She tells me that she has adequate outpatient follow up with her primary care provider, and can not stay in the hospital overnight due to prior commitments. She will follow up with her primary care provider on Saturday, and return to the ER with any worsening complaints at any time. We engaged in shared decision-making, I am agreeable with this plan. Differential Diagnosis Differential Diagnoses: The differential diagnosis associated with the presentation includes Chronic asymptomatic hyponatremia, electrolyte abnormality, underlying UTI or infection Admission/Observation Consideration of admission/observation: Escalation of care including admission/observation considered (Offered, strongly recommended, declined by patient.) Lab Data MDM Lab Attestation statement: I reviewed the patient's lab results. (Hyponatremia.) 03/16/25 17:49 03/16/25 20:49 Labs: Lab Results 03/16/25 03/16/25 03/16/25 Range/Units 17:49 20:46 20:49 WBC 7.1 (4.8-10.8) X10*3/uL RBC 3.89 L (4.20-5.50) X10*6/uL Hgb 12.7 (12.0-16.0) g/dl Hct 35.5 L (37.0-47.0) % MCV 91.3 (80.0-98.0) fL MCH 32.6 (27.0-33.0) pg MCHC 35.8 H (31.0-35.0) g/dl RDW 13.0 (11.0-16.0) % Plt Count 288 (160-400) X10*3/uL MPV 8.6 L (9.4-12.3) fL Immature Gran % (Auto) 0.3 (0.0-0.4) % Neut % (Auto) 66.1 (45-73) % Lymph % (Auto) 25.7 (20-40) % [place] % (Auto) 7.1 (2-11) % Eos % (Auto) 0.1 (0-4) % Baso % (Auto) 0.7 (0-2) % Lymph # (Auto) 1.8 (1.2-4.9) X10*3/uL [place] # (Auto) 0.5 (0.1-1.2) X10*3/uL Eos # (Auto) 0.0 (0.0-0.4) X10*3/uL Baso # (Auto) 0.1 (0.0-0.2) X10*3/uL Abs Immat Gran (auto) 0.02 (0.00-0.03) X10*3/uL Absolute Neuts (auto) 4.7 (2.0-8.3) x10*3/uL Absolute Nucleated RBC 0.000 (0.0-0.012) X10*3/uL Nucleated RBC % (auto) 0.0 (0.0-0.2) /100WBC Sodium 125 L 127 L (135-145) mmol/L Potassium 4.6 3.8 (3.3-5.1) mmol/L Chloride 90 L 94 L (96-108) mmol/L Carbon Dioxide 25 22 (22-29) mmol/L Anion Gap 15 15 (12-20) BUN 8 L 7 L (9-16) mg/dL Creatinine 0.71 0.64 (0.5-1.4) mg/dL Estim Creat Clear Calc 65.4 72.5 Estimated GFR > 60 > 60 Random Glucose 101 103 (60-115) mg/dL Calcium 10.6 H 9.7 D (8.4-10.2) mg/dL Magnesium 1.3 L* 1.9 (1.6-2.6) mg/dL Total Bilirubin 0.8 (0.0-1.0) mg/dL AST 33 H (5-31) U/L ALT 12 (0-31) U/L Alkaline Phosphatase 71 (39-117) U/L Total Protein 7.8 (6.5-8.0) g/dL Albumin 4.6 (3.5-5.0) g/dL Urine Color Yellow Urine Appearance Clear Urine pH 6.5 (5.0-9.0) Ur Specific [place] <= 1.005 (1.005-1.025) Urine Protein Negative (Neg-Trace) mg/dL Urine Glucose (UA) Negative (Negative) mg/dL Urine Ketones Negative (Negative) mg/dL Urine Blood Trace (Negative) Urine Nitrite Negative (Negative) Ur Leukocyte Esterase Large (3+) H (Negative) Urine RBC 0-2 (0-2) /HPF Urine WBC >50 H (0-5) /HPF Ur Squamous Epith Cells 3-5 (0-2) /HPF Urine Bacteria Trace (None Seen) Hyaline Casts 0-2 (0-2) /LPF Ethyl Alcohol < 10 mg/dL Independent Interpretation I performed an independent interpretation of an: EKG Interpretation: Rate: 92 Rhythm: NSR [place]: 63/23/27 Normal P waves. Normal FRANDY. Normal QRS complex. ST T wave : no dep, elev qTC: 393 prior studies:similar The study has been interpreted contemporaneously by me. Independent Historian None External Record Review External record reviewed: Office record (Nephrology visits for chronic asymptomatic hyponatremia.) and Primary care record Chronic Conditions Patient?s care impacted by: Hypertension and Other (Hyponatremia, hyperlipidemia) Social Determinants Patient?s care significantly limited by Social Determinants of Health including: Problems related to primary support group Discharge Plan Discharge Clinical Impression: Acute hyponatremia, Acute UTI Patient Disposition: Home, Self-Care Instructions: Hyponatremia (ED), Urinary Tract Infection in Older Adults (ED) Additional Instructions: As we discussed, your sodium level was low today, which prompted your ER visit. We did replete your sodium with IV fluids, however your sodium level now is only 127. You are around your baseline sodium, what is normal for you, is 128-131. However, you are still a bit low. We recommended you stay in the hospital overnight for continued management, but you declined. We engaged in shared decision-making, and you are being discharged home to follow up promptly with your PCP on Saturday, and if not on Saturday, then Saturday. Additionally, the urine sample here shows concern for a urinary tract infection. To treat this, I provided you a course of antibiotics. Please complete the full course of the antibiotics as prescribed. If any point you develop any new, worsening complaints, please return to the ED for reassessment. Prescriptions: New cefpodoxime 200 mg tablet 200 mg PO Q12H 7 Days Qty: 14 0RF Rx Instructions: must administer with a meal/food No Action calcium citrate 250 mg calcium tablet 500 mg PO BID Qty: 360 4RF (DME) pen needle, diabetic [Comfort EZ Pen [place]] 31 gauge x 5/16 needle See Rx Instructions .Route Qty: 50 4RF Rx Instructions: As directed use with Tymlos medication daily Tymlos 80 mcg (3,120 mcg/1.56 mL) pen injector 80 mcg subcut DAILY Qty: 1.56 11RF atorvastatin 40 mg tablet 40 mg PO DAILY 90 Days Qty: 90 0RF amlodipine 10 mg tablet 10 mg PO DAILY 90 Days Qty: 90 0RF candesartan 32 mg tablet 32 mg PO DAILY 90 Days Qty: 90 0RF cyanocobalamin (vitamin B-12) 1,000 mcg tablet 1,000 mcg PO DAILY 90 Days Qty: 90 0RF pantoprazole 40 mg tablet,delayed release (DR/EC) 40 mg PO DAILY Qty: 90 0RF cholecalciferol (vitamin D3) 25 mcg (1,000 unit) capsule 25 mcg PO DAILY 90 Days Qty: 90 4RF gabapentin 100 mg capsule 200 mg PO BEDTIME 30 Days Qty: 60 0RF Referrals: Hernandez Gonzalez MD [Primary Care Provider, Internal Medicine] Print Language: Maori
[2025-03-16 17:54] LABS: MANUAL DIFF FLAG NO
[2025-03-16 17:56] LABS: Hematocrit 35.5 % (37.0-47.0); Hemoglobin 12.7 g/dl (12.0-16.0); Imm Gran Abs Auto 0.02 X10*3/uL (0.00-0.03); Imm Gran Pct Auto 0.3 % (0.0-0.4); Lymphocytes Absolute Auto 1.8 X10*3/uL (1.2-4.9); Mean Corpuscular HGB Conc 35.8 g/dl (31.0-35.0); Mean Corpuscular Hemoglobin 32.6 pg (27.0-33.0); Mean Corpuscular Volume 91.3 fL (80.0-98.0); NRBC Abs Auto 0.000 X10*3/uL (0.0-0.012); NRBC Pct Auto 0.0 /100WBC (0.0-0.2); Platelet Count 288 X10*3/uL (160-400); Red Blood Count 3.89 X10*6/uL (4.20-5.50); White Blood Count 7.1 X10*3/uL (4.8-10.8)
[2025-03-16 18:11] LABS: Alanine Aminotransferase 12 U/L (0-31); Albumin Level 4.6 g/dL (3.5-5.0); Alkaline Phosphatase 71 U/L (39-117); Anion Gap 15 (12-20); Aspartate Amino Transferase 33 U/L (5-31); Blood Urea Nitrogen 8 mg/dL (9-16); Calcium 10.6 mg/dL (8.4-10.2); Carbon Dioxide 25 mmol/L (22-29); Chloride 90 mmol/L (96-108); Creatinine Clr Calc Pharmacy 65.4; Estimated Glomerular Filt Rate > 60; Magnesium 1.3 mg/dL (1.6-2.6); Potassium 4.6 mmol/L (3.3-5.1); Sodium 125 mmol/L (135-145); Total Protein 7.8 g/dL (6.5-8.0)
--- NOTE | 2025-03-16 18:38 | ECG_ITS ---
Test Reason : ELECTROLYTE ABNORMALITY Blood Pressure : */* mmHG Vent. Rate : 92 BPM Atrial Rate : 92 BPM P-R Int : 174 ms QRS Dur : 68 ms QT Int : 318 ms P-R-T Axes : 63 23 27 degrees QTcB Int : 393 ms Normal sinus rhythm Possible Left atrial enlargement Borderline ECG When compared with ECG of 13-Apr-2005 08:26, No significant changes seen Referred By: Coreen Jones Electronically Signed By: Young Hwang
[2025-03-16 19:03] VITALS: BP 160/71; PULSE 87; RESP 20; TEMP 36.7; O2SAT 99
[2025-03-16] MEDS: Magnesium Sulfate/H2O 2 GM/50 ML PIGGYBACK IV (19:14)
[2025-03-16 20:19] VITALS: BP 129/58; PULSE 84; RESP 14; TEMP 36.7; O2SAT 96
[2025-03-16 21:07] LABS: Anion Gap 15 (12-20); Blood Urea Nitrogen 7 mg/dL (9-16); Carbon Dioxide 22 mmol/L (22-29); Chloride 94 mmol/L (96-108); Creatinine Clr Calc Pharmacy 72.5; Estimated Glomerular Filt Rate > 60; Potassium 3.8 mmol/L (3.3-5.1); Sodium 127 mmol/L (135-145)
[2025-03-16 21:08] LABS: Calcium 9.7 mg/dL (8.4-10.2); Magnesium 1.9 mg/dL (1.6-2.6)
[2025-03-16 21:29] LABS: Appearance Urine Clear; Glucose Urine UA Negative (Negative); PH 6.5 (5.0-9.0); Specific Gravity - Urine <= 1.005 (1.005-1.025); UMIC TRIGGER UACC YES
[2025-03-16 21:34] LABS: UACC Culture Trigger YES
[2025-03-16 21:55] VITALS: BP 129/58; PULSE 84; RESP 14; TEMP 36.7; O2SAT 96
== END 2025-03-16 21:55 | disposition home or self-care (01) ==
PROVIDERS: Nurse Practitioner; Registered Nurse Emergency; Emergency Provider Student in an Organized Health Care Education/Training Program; PCP Internal Medicine
DX: I10 Essential (primary) hypertension (principal); N39.0 Urinary tract infection, site not specified; R79.89 Other specified abnormal findings of blood chemistry; E87.1 Hypo-osmolality and hyponatremia; Z79.632 Long term (current) use of antitumor antibiotic
CPT/HCPCS: 36415; 80048; 80053; 80307; 81001; 81003; 82306; 82607; 83721; 83735; 84443; 85025; 87086; 93005; 96361; 96374; 99212; 99284; 99285; J3475

== ENCOUNTER → 2025-03-16 18:38 | Outpatient (BNV) | payer MEDICARE, OTHER, SELFPAY | PROVIDERS: Emergency Provider Student in an Organized Health Care Education/Training Program; PCP Internal Medicine; Visit Provider Internal Medicine Cardiovascular Disease | DX: E87.8 Other disorders of electrolyte and fluid balance, not elsewhere classified (principal) | CPT/HCPCS: 93010 ==